=== PATIENT | female | born 1995 | race Caucasian/White ===

== ENCOUNTER → 2018-04-19 10:05 | Outpatient (CLI) | payer OTHER, SELFPAY ==
[2018-04-19 12:20] LABS: Hematocrit 42.1 % (37-47); Mean Corp Hgb Conc 33.3 g/gl (32-36); Mean Corpuscular Hgb 28.2 pg (27.0-32.0); Mean Corpuscular Volume 84.9 fL (81-99); Mean Platelet Vol. 12.3 fl (6.2-12.0); Platelet Count 304 K/mm3 (150-450); RBC Distribution Width CV 14.4 % (11.6-14.6); RBC Distribution Width SD 43.7 fl (35.1-43.9); Red Blood Count 4.96 M/mm3 (4.2-5.4); White Blood Count 10.7 K/mm3 (4.4-11.0)
[2018-04-19 12:30] LABS: Scan Indicated on CBC? Y/N NO
[2018-04-19 12:31] LABS: Erythrocyte Sedimentation Rate 30 mm/hr (0-20)
[2018-04-19 12:33] LABS: Pregnancy, Serum, hCG Quali. NEGATIVE Negative (0-9 Nonpreg)
[2018-04-19 12:44] LABS: ALB/GLOB Ratio 0.8 RATIO (0.9-2.4); AST(SGOT) 26 U/L (15-37); Alanine Aminotransfer ALT/SGPT 48 U/L (13-56); Albumin, Serum 3.5 g/dL (3.2-5.0); Alkaline Phosphatase 89 U/L (45-117); Anion Gap 11 (5-15); BUN 9 mg/dL (7-18); BUN/Creat Ratio 11.8 RATIO (10-20); Calcium,Total 9.1 mg/dL (8.5-10.1); Chloride 107 mmol/L (98-107); Creatinine, Serum 0.76 mg/dL (0.55-1.02); EST Glomerular Filtration Rate 101 mL/min (>60); Est Glom Filt Rate - Afr Amer 122 mL/min (>60); Globulin 4.2 g/dL (2.2-4.2); Glucose 94 mg/dL (74-106); Potassium 4.2 mmol/L (3.5-5.1); Protein, Total 7.7 g/dL (6.4-8.2); Sodium Level 141 mmol/L (136-145); Thyroid Stim Hormone (TSH) 3.25 uIU/mL (0.358-3.74)
[2018-04-20 12:20] LABS: Vitamin B12 340 pg/mL (211-911); Vitamin D,25 Hydroxy 14.4 ng/mL (29.95-100.01)
[2018-04-20 12:49] LABS: H. Pylori Antibody (IgG) 0.22 (0.00-0.79)
== END ==
PROVIDERS: Family Provider Pediatrics; PCP Pediatrics; Visit Provider Family Medicine
DX: K58.9 Irritable bowel syndrome, unspecified (principal); K21.9 Gastro-esophageal reflux disease without esophagitis; R53.83 Other fatigue; Z30.9 Encounter for contraceptive management, unspecified
CPT/HCPCS: 80053; 82306; 82607; 84443; 84703; 85027; 85652; 86677

== ENCOUNTER → 2018-06-02 08:41 | Outpatient (CLI) | payer OTHER, SELFPAY ==
--- NOTE | 2018-06-02 08:49 | US_ITS ---
STUDY: ABDOMINAL ULTRASOUND - RIGHT UPPER QUADRANT REASON FOR VISIT: Female, 22 years old. Acid reflux, 3 months. Diarrhea and nausea for one month. TECHNIQUE: Ultrasound evaluation of the right upper quadrant was performed with real-time and static knutson-scale imaging. TECHNICAL QUALITY: Adequate. COMPARISON: None. FINDINGS: Liver: The liver measures 18.3 cm. Mild hepatomegaly. Hepatic steatosis. The bile ducts are within normal limits. There is hepatic color flow. The direction of portal flow is hepatopetal. There is no demonstrated mass lesion. Gallbladder: Normal distended gallbladder. The gallbladder wall measures 2.9 mm. There is a negative sonographic Costa's sign. There is no pericholecystic fluid. There are no gallstones. Common Bile Duct (C.B.D.): The common bile duct measures 3.3 mm. Pancreas: Normal size of the head, body and tail of the pancreas. There is normal echogenicity of the pancreas. There is no demonstrated pancreatic mass or cyst. Right Kidney: Normal size of the right kidney. The right kidney measures 12.1 x 5.2 x 4.8 cm. Normal renal cortex. The right cortex measures 2.0 cm. There is no demonstrated renal mass or cyst. There is no right hydronephrosis. US/Abdomen Limited IMPRESSION: Normal gallbladder and biliary tree. Mild hepatomegaly with hepatic steatosis. Electronically Signed: Cayden Maloney, at 15:43 EDT Tel , Service support ,
== END ==
PROVIDERS: Family Provider Family Medicine; PCP Family Medicine; Visit Provider Family Medicine
DX: K58.9 Irritable bowel syndrome, unspecified (principal)
CPT/HCPCS: 76705

== ENCOUNTER → 2018-11-22 16:50 | Outpatient (CLI) | payer OTHER, SELFPAY ==
--- NOTE | 2018-11-22 16:53 | RAD_ITS ---
STUDY: X-RAY - LUMBAR SPINE REASON FOR EXAM: Female, 22 years old. Sciatica. TECHNIQUE: 5 view(s) of the lumbar spine were obtained including oblique views. COMPARISON: None FINDINGS: There is straightening of the normal lumbar lordosis. There is no substantial scoliosis. There is a normal alignment of the vertebrae. Normal vertebral bodies and endplates. Normal disc space heights. The soft tissue structures are unremarkable. RAD/L/S Spine Min 4 Views IMPRESSION: There is straightening of the normal lumbar lordosis. Electronically Signed: Elmer Hare MD at 14:01 EST Tel [phone], Service support ,
== END ==
PROVIDERS: Family Provider Family Medicine; PCP Family Medicine; Referring Provider Family Medicine; Visit Provider Family Medicine
DX: M54.30 Sciatica, unspecified side (principal)
CPT/HCPCS: 72110

== ENCOUNTER → 2020-02-11 | Outpatient (CLI) | payer OTHER, SELFPAY | END | disposition home or self-care (01) | LOC: LABSPEC 15:08 | PROVIDERS: PCP Family Medicine; Referring Provider Nurse Practitioner Family; Visit Provider Nurse Practitioner Family | DX: N89.8 Other specified noninflammatory disorders of vagina (principal) | CPT/HCPCS: 87070; 87205 ==

== ENCOUNTER → 2021-02-03 17:12 | Outpatient (CLI) | payer OTHER, SELFPAY ==
--- NOTE | 2021-02-03 17:18 | RAD_ITS ---
STUDY: X-RAY - RIGHT ANKLE REASON FOR EXAM: Female, 25 years old. SPRAIN OF ANKLE TECHNIQUE: 3 view(s) of the ankle. COMPARISON: None. FINDINGS: Normal visualized distal tibia and fibula. Normal medial and lateral malleoli. Normal tibiotalar articulation and ankle mortise. Normal visualized talus and calcaneus. The visualized subtalar, talonavicular, calcaneocuboid and tarsal articulations are normal. Diffuse soft tissue swelling. RAD/Ankle min 3 Views IMPRESSION: Diffuse soft tissue swelling. Electronically Signed: Elmer Hare MD at 15:46 EDT , Service support ,
== END ==
LOC: MTRAD 17:17
PROVIDERS: PCP Family Medicine; Referring Provider Family Medicine; Visit Provider Family Medicine
DX: S93.429A Sprain of deltoid ligament of unspecified ankle, initial encounter (principal)
CPT/HCPCS: 73610

== ENCOUNTER 2021-05-30 03:56 | Inpatient (IN) | payer OTHER, SELFPAY ==
[2021-05-30] VITALS (14 sets, daily range): BP systolic 139–158; BP diastolic 70–86; PULSE 79–118; RESP 16–24; TEMP 36.6–37.2; O2SAT 92–94; BMI 63.5; BMI 62.8
--- NOTE | 2021-05-30 04:03 | EKG12_ITS ---
Test Reason : SOB Blood Pressure : / mmHG Vent. Rate : 107 BPM Atrial Rate : 107 BPM P-R Int : 156 ms QRS Dur : 082 ms QT Int : 350 ms P-R-T Axes : 068 030 052 degrees QTc Int : 467 ms Sinus tachycardia Low voltage QRS Confirmed by NIC RECINOS, SONYA ([id number]), editor dictionary ORLANDO JAMES ([id number]) on 06/02/2021 9:16:54 AM Referred By: ELY Confirmed By:SONYA LUCERO MD
--- NOTE | 2021-05-30 04:07 | EDS_ITS ---
HPI History of Present Illness Chief Complaint: Shortness of Breath Narrative Narrative: Patient presents with wheezing and shortness of breath that started earlier today, she has a history of asthma but has not had asthma in quite some time, in fact since she was a child. She has no fever chills she has a somewhat productive cough. She has no lower extremity edema or calf pain. She has no DVT or PE risk factors. She has no pleuritic component. She is denying chest pain. No back pain or tearing sensation. She does have some upper airway congestion. [facility] Medical History (Updated 05/30/21 @ 05:[address] Tyrese Velazquez MD) Asthma Home Medications fluoxetine 20 mg PO BID 05/30/21 [History Last Taken Unknown] omeprazole 40 mg PO BID 05/30/21 [History Last Taken Unknown] Allergy/AdvReac Type Severity Reaction Status Date / Time No Known Allergies Allergy Verified 05/30/21 04:03 Social History Smoking Status: Current every day smoker tobacco type: cigarettes ROS ROS ED ROS Narrative Past medical history: Reviewed Medications: Reviewed Social history: Noncontributory Review of systems: All systems negative except as indicated General: No fever Eyes: No visual changes ENT: Some upper airway congestion Neck: No neck pain Cardiovascular: No chest pain Respiratory: Dyspnea as in HPI Gastrointestinal: No abdominal pain, nausea vomiting or diarrhea Genitourinary: No dysuria Musculoskeletal: Denies myalgias no difficulty with ambulation Skin: No rash Neurological: No memory loss, confusion or any focal weakness Psych: No recent behavioral changes Hematologic: No easy bleeding or easy bruising EXAM Physical Exam Narrative Exam Narrative: Physical exam General: Patient is sitting in bed, she appears relatively comfortable Head: Normocephalic, Atraumatic Eyes: Conjunctiva not pale ENT: Moist mucous membranes. Some upper airway congestion is present. Neck: Supple, Nontender, No lymphadenopathy Cardiovascular: Regular rate, Regular rhythm. No obvious murmur. Respiratory: She has bilateral end expiratory wheezing, she is slightly tachypneic but is speaking in full sentences. Abdomen: Soft, Nontender, Nondistended Back: Nontender, Normal Inspection. Negative for: CVA tenderness Extremities: Nontender, No edema, no calf pain Skin: Normal color, No rash Neurological: Alert, Normal Strength, Normal Sensation Psychological: Normal affect Const Vital Signs: 05/30/21 03:58 05/30/21 04:21 05/30/21 04:22 Temperature 98.0 F Temperature Source Oral Pulse Rate 116 H 111 H Respiratory Rate 24 H 20 H Respiratory Effort Short of Breath Respiratory Depth Normal Respiratory Pattern Tachypnea Blood Pressure 146/73 H Blood Pressure Mean 97 Pulse Ox 92 Oxygen Delivery Method Room Air Room Air Oxygen Flow Rate (L/min) 05/30/21 05:04 05/30/21 05:15 Temperature Temperature Source Pulse Rate 104 H 118 H Respiratory Rate 18 19 H Respiratory Effort Respiratory Depth Respiratory Pattern Blood Pressure Blood Pressure Mean Pulse Ox 94 Oxygen Delivery Method Venturi Mask Oxygen Flow Rate (L/min) 2 MDM MDM MDM Narrative Medical decision making narrative: Patient continues to wheeze despite steroids and nebulizers, she is improving however I try to ambulate her to the bathroom which was very close and she came back and felt much worse her oxygenation was marginal at about 90%. At this time I will admit her. She likely has an underlying pneumonia. She has no DVT or PE risk factors and she is wheezing, with a history of asthma I believe she has a reactive airway disease and I do not believe she needs a PE study at this time. Lab Data Labs: Laboratory Results - last 24 hr 05/30/21 05/30/21 04:30 04:30 WBC 15.6 H RBC 4.49 Hgb 12.4 Hct 38.1 MCV 84.9 MCH 27.6 MCHC 32.5 RDW Std Deviation 43.2 RDW Coeff of Cruz 13.9 Plt Count 343 MPV 11.2 Immature Gran % (Auto) 0.400 Neut % (Auto) 74.3 H Lymph % (Auto) 17.2 L [place] % (Auto) 5.8 Eos % (Auto) 2.0 Baso % (Auto) 0.3 Absolute Neuts (auto) 11.6 H Absolute Lymphs (auto) 2.69 Nucleated RBC % 0 Sodium 138 Potassium 3.8 Chloride 104 Carbon Dioxide 28.0 Anion Gap 6 BUN 8 Creatinine 0.83 Estim Creat Clear Calc 100.76 Est GFR (MDRD) Af Amer 107 Est GFR (MDRD) Non-Af 89 BUN/Creatinine Ratio 9.6 L Glucose 110 H Calcium 8.7 Total Bilirubin 0.40 AST 25 ALT 55 Alkaline Phosphatase 91 Total Protein 7.4 Albumin 3.3 Globulin 4.1 Albumin/Globulin Ratio 0.8 L Radiography Diagnostic Testing: X-ray interpreted by emergency doctor does not show any obvious pneumonia, although it is somewhat limited secondary to body habitus. Discharge Plan Triage Chief Complaint: Shortness of Breath ED Provider: Tyrese Velazquez Dx/Rx/DC Orders Clinical Impression: Acute respiratory distress, Wheezing Prescriptions: No Action fluoxetine 20 mg Capsule 20 mg PO BID RF: 0 omeprazole 40 mg Capsule,Delayed Release(Dr/Ec) 40 mg PO BID RF: 0 Primary Care Provider: Juan Francisco Jackson Referrals: Juan Francisco Jackson MD [Primary Care Provider] - Disposition Disposition: Acute Care Hospital [facility]
[2021-05-30] MEDS: Ipratropium/Albuterol Sulfate 3 ML AMPUL.NEB 6 ML INHALATION (04:21)
--- NOTE | 2021-05-30 04:36 | RAD_ITS ---
STUDY: X-RAY CHEST REASON FOR EXAM: Female, 25 years old. coug TECHNIQUE: Single AP portable view of the chest. COMPARISON: None. FINDINGS: The lungs are clear and expanded. There is no demonstrated pleural abnormality. Normal size heart. Normal mediastinum and karen. Normal visualized pulmonary arteries. Normal visualized aortic arch and descending thoracic aorta. Normal visualized thoracic spine. Normal visualized ribs, clavicles, and shoulders. There is no demonstrated abnormality of the visualized soft tissue structures of the upper abdomen. RAD/Chest 1 View (Portable) IMPRESSION: Normal x-ray examination of the chest. Electronically Signed: Gabrielle Frost MD at 6:18 EDT Tel , Service support ,
[2021-05-30 04:37] LABS: Absolute Lymphocyte Count 2.69 X10^3/uL (0.83-4.51); Absolute Neutrophil Count 11.6 X10^3/uL (2.0-7.7); Basophil# 0.04 X10^3/uL; Basophil% 0.3 % (0-1); Eosinophil# 0.32 X10^3/uL; Hematocrit 38.1 % (37-47); Hemoglobin 12.4 g/dL (12.0-15.0); Lymphocyte # 2.69 X10^3/ul (0.83-4.51); Lymphocyte % 17.2 % (19-41); Mean Corp Hgb Conc 32.5 g/dL (32-36); Mean Corpuscular Hgb 27.6 pg (27.0-32.0); Mean Corpuscular Volume 84.9 fL (81-99); Mean Platelet Vol. 11.2 fl (6.2-12.0); Monocyte# 0.91 X10^3/uL; Monocyte% 5.8 % (0-10); NRBC Flagged by Analyzer 0 % (0-5); Neutrophil % 74.3 % (47-70); Platelet Count 343 K/mm3 (150-450); RBC Distribution Width CV 13.9 % (11.6-14.6); RBC Distribution Width SD 43.2 fl (35.1-43.9); Red Blood Count 4.49 M/mm3 (4.2-5.4); White Blood Count 15.6 K/mm3 (4.4-11.0)
[2021-05-30 04:55] LABS: ALB/GLOB Ratio 0.8 RATIO (0.9-2.4); AST(SGOT) 25 U/L (15-37); Alanine Aminotransfer ALT/SGPT 55 U/L (13-56); Albumin, Serum 3.3 g/dL (3.2-5.0); Alkaline Phosphatase 91 U/L (45-117); Anion Gap 6 (5-15); BUN 8 mg/dL (7-18); BUN/Creat Ratio 9.6 RATIO (10-20); Calcium,Total 8.7 mg/dL (8.5-10.1); Chloride 104 mmol/L (98-107); Creatinine, Serum 0.83 mg/dL (0.55-1.02); EST Glomerular Filtration Rate 89 mL/min (>60); Est Glom Filt Rate - Afr Amer 107 mL/min (>60); Estimated Creatinine Clearance 100.76 ml/min; Globulin 4.1 g/dL (2.2-4.2); Glucose 110 mg/dL (74-106); Potassium 3.8 mmol/L (3.5-5.1); Protein, Total 7.4 g/dL (6.4-8.2); Sodium Level 138 mmol/L (136-145)
[2021-05-30] MEDS: MethylPREDNISolone 125 MG/2 ML Vial IV (05:01)
[2021-05-30] MEDS: Albuterol 2.5 MG/3 ML VIAL.NEB. 5 MG INHALATION ×2 (05:03→05:04)
[2021-05-30] MEDS: Ceftriaxone 1 GM/50 ML BAG IV (05:14)
--- NOTE | 2021-05-30 06:14 | HP.PCM.HOS_ITS ---
HPI - General General Date of Admission: 05/30/21 HPI Narrative JAIRO MANCERA, is a 25 F with a significant history of childhood asthma; obesity; GERD and anxiety disorder who presents to the emergency department with 1 day history of progressively worsening shortness of breath. Her symptoms actually started 3 days ago with sore throat. Associated with symptoms is headache; nausea; sinus congestion; chest pressure and wheezes. Her Shortness of breath is at rest and it increases markedly with exertion. Reportedly when patient walked short distance to the bathroom at the emergency department she got severely dyspneic and a oxygen saturation was 90%. [facility] Home Medications fluoxetine 20 mg PO BID 05/30/21 [History Last Taken Unknown] omeprazole 40 mg PO BID 05/30/21 [History Last Taken Unknown] Allergy/AdvReac Type Severity Reaction Status Date / Time No Known Allergies Allergy Verified 05/30/21 04:03 Family History (Updated 05/30/21 @ 06:[address] Alvin Corona MD) Other CVA (cerebral vascular accident) Diabetes Heart disease no surgical history Social History Smoking Status: Current every day smoker tobacco type: cigarettes ROS ROS Narrative 12 point review of system is negative except as stated in HPI. Vital Signs Vital Signs Vital Signs: 05/30/21 03:58 05/30/21 04:21 05/30/21 04:22 Temperature 98.0 F Temperature Source Oral Pulse Rate 116 H 111 H Respiratory Rate 24 H 20 H Respiratory Effort Short of Breath Respiratory Depth Normal Respiratory Pattern Tachypnea Blood Pressure 146/73 H Blood Pressure Mean 97 Pulse Ox 92 Oxygen Delivery Method Room Air Room Air Oxygen Flow Rate (L/min) 05/30/21 05:04 05/30/21 05:15 Temperature Temperature Source Pulse Rate 104 H 118 H Respiratory Rate 18 19 H Respiratory Effort Respiratory Depth Respiratory Pattern Blood Pressure Blood Pressure Mean Pulse Ox 94 Oxygen Delivery Method Venturi Mask Oxygen Flow Rate (L/min) 2 Weight Weight: 183.9 kg Body Mass Index (BMI) 63.5 Physical Exam Narrative Physical exam: General: Well-nourished, well-developed, no acute distress Head: Normocephalic, atraumatic, no tenderness Eyes: PERRLA, EOMI ENT, no trauma, moist mucous membranes, no rhinorrhea Neck: Nontender, full range of motion, no spinal tenderness, deformities, step- off CVS: Tachycardia; S1-S2 present Respiratory: Tachypnea. Using accessory muscles of respiration. Wheezes and rhonchi. Abdomen: Soft, nontender, nondistended, normal bowel sounds, no masses : Deferred Extremities: Nontender full range of motion, no trauma Skin: Normal color, no trauma, abrasions Neuro: Alert, oriented, cranial nerves II through XII grossly intact. Results Lab / Micro Data Result Diagrams: 05/30/21 04:30 05/30/21 04:30 Labs: Laboratory Results - last 24 hr 05/30/21 05/30/21 04:30 04:30 WBC 15.6 H RBC 4.49 Hgb 12.4 Hct 38.1 MCV 84.9 MCH 27.6 MCHC 32.5 RDW Std Deviation 43.2 RDW Coeff of Cruz 13.9 Plt Count 343 MPV 11.2 Immature Gran % (Auto) 0.400 Neut % (Auto) 74.3 H Lymph % (Auto) 17.2 L [place] % (Auto) 5.8 Eos % (Auto) 2.0 Baso % (Auto) 0.3 Absolute Neuts (auto) 11.6 H Absolute Lymphs (auto) 2.69 Nucleated RBC % 0 Sodium 138 Potassium 3.8 Chloride 104 Carbon Dioxide 28.0 Anion Gap 6 BUN 8 Creatinine 0.83 Estim Creat Clear Calc 100.76 Est GFR (MDRD) Af Amer 107 Est GFR (MDRD) Non-Af 89 BUN/Creatinine Ratio 9.6 L Glucose 110 H Calcium 8.7 Total Bilirubin 0.40 AST 25 ALT 55 Alkaline Phosphatase 91 Total Protein 7.4 Albumin 3.3 Globulin 4.1 Albumin/Globulin Ratio 0.8 L Assessment & Plan Assessment/Plan (1) Asthma exacerbation: QUALIFIERS: Asthma severity: severe Asthma persistence: unspecified Qualified Code(s): J45.901 - Unspecified asthma with (acute) exacerbation (2) Viral syndrome: (3) Obesity: QUALIFIERS: Obesity classification: adult class 3 (BMI >= 40) Serious obesity comorbidity presence: without serious comorbidity Obesity type: due to excess calories Body mass index: BMI 60.0-69.9 Qualified Code(s): E66.01 - Morbid (severe) obesity due to excess calories; Z68.44 - Body mass index [BMI] 60.0-69.9, adult PLAN: Acute the patient of asthma/viral syndrome Chest x-ray independently reviewed showed no consolidation. Review of emergency department labs showed white count of 15.6 Received Solu-Medrol 125 mg in the emergency department. Solu-Medrol 40 mg [id number] ordered. Received multiple dose of breathing treatment emergency department. DuoNeb 3 mL every 4 hours while awake ordered. Supportive treatment with intranasal Flonase; Mucinex. Will check comprehensive respiratory pathogen panel received ceftriaxone azithromycin emergency department. Will check Procalcitonin to determine further need of antibiotics. Strep pneumonia and Legionella urine antigen ordered; follow. Blood culture and lactic acid ordered in the ED; follow. Rapid Covid screen ordered emergency department; follow. Class III obesity BMI: 63.5. Complicates care. Lifestyle modification recommended. DVT prophylaxis Subcutaneous Lovenox ordered. Charges/Coding Visit Charges Inpatient E&M: 69566 Init Hosp L3
[2021-05-30 07:13] LABS: Lactic Acid 1.1 mmol/L (0.4-1.9)
[2021-05-30] MEDS: Fluticasone 0.05% 1 SPRAY NASAL.SRY 2 SPRAY NASAL (09:37)
[2021-05-30] MEDS: FLUoxetine 20 MG Capsule PO ×2 (09:37→20:05)
[2021-05-30] MEDS: Pantoprazole Sodium 40 MG Tablet PO ×2 (09:37→20:05)
[2021-05-30] MEDS: guaiFENesin 1,200 MG Tablet 1200 MG PO ×2 (09:37→20:04)
[2021-05-30] MEDS: Enoxaparin 40 MG/0.4 ML Syringe SC ×2 (09:37→20:05)
[2021-05-30] MEDS: Ipratropium/Albuterol Sulfate 3 ML AMPUL.NEB INHALATION ×4 (11:16→23:18)
[2021-05-30] MEDS: 0.9% Saline Lock 10 ML Syringe IV ×2 (14:49→20:04)
[2021-05-31] VITALS (7 sets, daily range): BP systolic 130–145; BP diastolic 59–94; PULSE 90–98; RESP 18–20; TEMP 36.1–36.6; O2SAT 87–95
[2021-05-31] MEDS: 0.9% Saline Lock 10 ML Syringe IV (05:25)
[2021-05-31 06:31] LABS: Absolute Lymphocyte Count 2.19 X10^3/uL (0.83-4.51); Absolute Neutrophil Count 19.5 X10^3/uL (2.0-7.7); Basophil# 0.04 X10^3/uL; Basophil% 0.2 % (0-1); Eosinophil# 0.01 X10^3/uL; Hematocrit 39.6 % (37-47); Hemoglobin 12.4 g/dL (12.0-15.0); Lymphocyte # 2.19 X10^3/ul (0.83-4.51); Lymphocyte % 9.4 % (19-41); Mean Corp Hgb Conc 31.3 g/dL (32-36); Mean Corpuscular Hgb 27.3 pg (27.0-32.0); Mean Corpuscular Volume 87.2 fL (81-99); Mean Platelet Vol. 11.2 fl (6.2-12.0); Monocyte# 1.36 X10^3/uL; Monocyte% 5.8 % (0-10); NRBC Flagged by Analyzer 0 % (0-5); Neutrophil # 19.47 X10^3/uL (2.7-7.7); Neutrophil % 83.5 % (47-70); Platelet Count 378 K/mm3 (150-450); RBC Distribution Width CV 14.3 % (11.6-14.6); RBC Distribution Width SD 45.5 fl (35.1-43.9); Red Blood Count 4.54 M/mm3 (4.2-5.4); White Blood Count 23.3 K/mm3 (4.4-11.0)
[2021-05-31 07:10] LABS: Anion Gap 7 (5-15); BUN 11 mg/dL (7-18); BUN/Creat Ratio 14.7 RATIO (10-20); Chloride 106 mmol/L (98-107); Creatinine, Serum 0.75 mg/dL (0.55-1.02); EST Glomerular Filtration Rate 100 mL/min (>60); Est Glom Filt Rate - Afr Amer 121 mL/min (>60); Estimated Creatinine Clearance 111.51 ml/min; Glucose 124 mg/dL (74-106); Potassium 4.2 mmol/L (3.5-5.1); Sodium Level 136 mmol/L (136-145)
[2021-05-31] MEDS: Ipratropium/Albuterol Sulfate 3 ML AMPUL.NEB INHALATION ×2 (07:21→11:02)
[2021-05-31] MEDS: Acetaminophen 325 MG Tablet 650 MG PO ×2 (07:49→13:46)
[2021-05-31] MEDS: Enoxaparin 40 MG/0.4 ML Syringe SC (07:50)
[2021-05-31] MEDS: Fluticasone 0.05% 1 SPRAY NASAL.SRY 2 SPRAY NASAL (07:50)
[2021-05-31] MEDS: FLUoxetine 20 MG Capsule PO (07:51)
[2021-05-31] MEDS: Pantoprazole Sodium 40 MG Tablet PO (07:51)
[2021-05-31] MEDS: guaiFENesin 1,200 MG Tablet 1200 MG PO (07:51)
--- NOTE | 2021-05-31 10:10 | CASEMGMT ---
RN CALISTA SERVICE RIG OPERATOR CM to room to meet with patient for initial transition planning/care coordination assessment. RN CALISTA introduced self and role at [facility]. Pt voices understanding and consents to assessment at this time. Pt resting in bed in no distress at this time. , Jamari, @ bedside. Pt is A/O at this time and answers all questions appropriately. Care providers, pharmacy, and demographics verified/updated at this time. PCP: Dr Jackson Specialists:denies Preferred Pharmacy: [facility] Insurance: [employer] [facility] Prescription Benefit: Yes Living Will/HPOA: Pt does not currently have LW/HCPOA and declines info at this time. LNOK: , Jamari Living Arrangements: Lives w/her Jamari. Independent Transportation: Pt states drives self and states no transportation concerns at this time. also drives. DME: Denies using any DME and denies needs. Pt does not have home O2. HHC/SNF: No history of either. No needs identified. Pt wishes to return home and states has no concerns with going home at time of discharge. CM to follow for home oxygen needs and any further discharge planning/needs. Pt voices no further concerns/needs at this time. Advised pt to ask for CM if any further questions/concerns/needs arise. Voices understanding. PLAN: Home. CM to follow for any Home O2 needs @ dc. Albina MERRITT RN, CM
--- NOTE | 2021-05-31 10:32 | NURSING ---
Patient's 02 on RA was 90%. While she was ambulating she was anywhere from 89%-91% on RA.
--- NOTE | 2021-05-31 11:44 | PCM.DC ---
Discharge Instructions Diet Discharge Diet: No restrictions Activity Discharge Activity: Return to Normal Activity Dressing / Incision Call your doctor if you observe: Fever of 101 or Higher, Shortness of breath, Dizziness, Swelling in the ankles, Chest pain and Increased palpitations (irregular heartbeat) Follow Up Care Test Results: Test results from this visit will be discussed in further detail at your follow-up appointment, if applicable. Discharge Plan Admission Admit Date/Time: 05/30/21 06:13 Attending Provider: Eagle Kelley Primary Care Provider: Juan Francisco Jackson Instructions Patient Instructions: Asthma Action Plan, Asthma Medicine, Asthma Discharge Orders/Prescriptions Prescriptions: New prednisone 20 mg tablet 40 mg PO DAILY Qty: 14 RF: 0 albuterol sulfate 90 mcg/actuation HFA aerosol inhaler 2 - 4 puff inhalation Q4H PRN (Reason: shortness of breath or wheezing) Qty: 8.5 RF: 0 Continued fluoxetine 20 mg Capsule 20 mg PO BID RF: 0 omeprazole 40 mg Capsule,Delayed Release(Dr/Ec) 40 mg PO BID RF: 0 Referrals / Follow Up: Juan Francisco Jackson MD [Primary Care Provider] - In 1 Week Disposition Disposition (needs filled in before D/C Order can be placed): Home, Self Care
--- NOTE | 2021-05-31 13:13 | NURSING ---
Patient was placed on continuous pulse ox. She dropped breifly to 88% on RA but was mostly in the range of 90-93% on RA. Dr. Kelley made aware. Patient states she is ok with DC without 02. States she feels better than when she came in.
--- NOTE | 2021-05-31 13:40 | DS.PCM_ITS ---
Providers Date of Admission: 05/30/21 Primary Care Physician: Dr. Juan Francisco Jackson MD Reason For Visit: SOB EXACERBATION Diagnosis Discharge Diagnosis (1) Asthma exacerbation: Status: Acute Code(s): J45.901 - Unspecified asthma with (acute) exacerbation Qualifiers: Asthma severity: severe Asthma persistence: unspecified Qualified Code(s): J45.901 - Unspecified asthma with (acute) exacerbation (2) Viral syndrome: Status: Acute Code(s): B34.9 - Viral infection, unspecified (3) Obesity: Status: Acute Code(s): E66.9 - Obesity, unspecified Qualifiers: Obesity type: due to excess calories Obesity classification: adult class 3 (BMI >= 40) Serious obesity comorbidity presence: without serious comorbidity Body mass index: BMI 60.0-69.9 Qualified Code(s): E66.01 - Morbid (severe) obesity due to excess calories; Z68.44 - Body mass index [BMI] 60.0- 69.9, adult Medications at Discharge Home Medications fluoxetine 20 mg PO BID 05/30/21 omeprazole 40 mg PO BID 05/30/21 albuterol sulfate 2 - 4 puff INHALATION Q4H PRN #8.5 g 05/31/21 prednisone 40 mg PO DAILY #14 tab 05/31/21 Hospital Course Operations None Procedures None Summary of Care Provided Minutes Spent on Discharge: 35 Hospital Course: Per HPI: JAIRO MANCERA, is a 25 F with a significant history of childhood asthma; obesity; GERD and anxiety disorder who presents to the emergency department with 1 day history of progressively worsening shortness of breath. Her symptoms actually started 3 days ago with sore throat. Associated with symptoms is headache; nausea; sinus congestion; chest pressure and wheezes. Her Shortness of breath is at rest and it increases markedly with exertion. Reportedly when patient walked short distance to the bathroom at the emergency department she got severely dyspneic and a oxygen saturation was 90%. Hospital Course: 1. Acute hypoxic respiratory insufficiency secondary to Rhinovirus with asthma [id number] female who did have a history of childhood asthma but who no longer has any issues with asthma, but she does smoke presented with respiratory distress and shortness of breath. She did test positive for rhinovirus and was placed on oxygen and started on breathing treatments as well as steroids. She is feeling much better today and on ambulation and on room air she was teetering around 90% and she was given the option of staying 1 more day to see if her oxygen increased or going home, she elected to go home. I did discuss with her the risks and benefits of discharge and she expressed understanding of those risks. She will be discharged with albuterol inhaler as well as steroids for a week.I explained to her that she is to follow-up with her PCP in 3 to 5days for further monitoring. She was counseled on tobacco cessation. Physical Exam Const alert, oriented x3 and no apparent distress General Appearance: cooperative HEENT normocephalic and moist oral mucous membranes Eyes PERRL, EOMs intact bilaterally and conjunctivae normal Neck supple and no JVD Resp normal respiratory effort, no retractions and no use of accessory muscles Auscultation: wheezes expiratory wheezes and throughout; Negative for crackles, rales or rhonchi Cardio regular rate, regular rhythm, S1 normal heart sound, S2 normal heart sound and no murmurs GI soft to palpation, non-tender and non-distended; Negative for hepatosplenomegaly Extremity no clubbing, cyanosis or edema Skin no rashes or lesions noted Neuro no focal motor deficits and no sensory deficits noted Psych affect normal Appearance: appropriate Weight / BMI Weight Weight: 401 lb 3.861 oz Body Mass Index (BMI) 62.8 ABG / Lab / Microbiology Data Result Diagrams: 05/31/21 06:08 05/31/21 06:08 Laboratory: Laboratory Results - last 24 hr 05/31/21 06:08: WBC 23.3 H, RBC 4.54, Hgb 12.4, Hct 39.6, MCV 87.2, MCH 27.3, MCHC 31.3 L, RDW Std Deviation 45.5 H, RDW Coeff of Cruz 14.3, Plt Count 378, MPV 11.2, Immature Gran % (Auto) 1.100 H, Neut % (Auto) 83.5 H, Lymph % (Auto) 9.4 L, [place] % (Auto) 5.8, Eos % (Auto) 0.0, Baso % (Auto) 0.2, Absolute Neuts (auto) 19.5 H, Absolute Lymphs (auto) 2.19, Nucleated RBC % 0 05/31/21 06:08: Sodium 136, Potassium 4.2, Chloride 106, Carbon Dioxide 23.0, Anion Gap 7, BUN 11, Creatinine 0.75, Estim Creat Clear Calc 111.51, Est GFR (MDRD) Af Amer 121, Est GFR (MDRD) Non-Af 100, BUN/Creatinine Ratio 14.7, Glucose 124 H, Calcium 9.0 Microbiology: Microbiology 05/30/21 11:12 Mucosa - Nasopharyngeal Respiratory Panel (PCR) - Final Rhinovirus 05/30/21 12:27 Urine, Clean Catch Legionella Antigen - Final 05/30/21 12:27 Urine, Clean Catch Streptococcus pneumoniae Antigen (M - Final 05/30/21 06:28 Mucosa - Nose SARS-CoV-2 Antigen (Rapid) - Final D/C Instructions Discharge Diet: No restrictions Call your doctor if you observe: Fever of 101 or Higher, Shortness of breath, Dizziness, Swelling in the ankles, Chest pain and Increased palpitations (irregular heartbeat) Meaningful Use Info Meaningful Use Diagnoses (Choose all that apply): None applicable Discharge Plan Admission Admit Date/Time: 05/30/21 06:13 Attending Provider: Eagle Kelley Primary Care Provider: Juan Francisco Jackson Instructions Patient Instructions: Asthma Action Plan, Asthma Medicine, Asthma Discharge Orders/Prescriptions Prescriptions: New prednisone 20 mg tablet 40 mg PO DAILY Qty: 14 RF: 0 albuterol sulfate 90 mcg/actuation HFA aerosol inhaler 2 - 4 puff inhalation Q4H PRN (Reason: shortness of breath or wheezing) Qty: 8.5 RF: 0 Continued fluoxetine 20 mg Capsule 20 mg PO BID RF: 0 omeprazole 40 mg Capsule,Delayed Release(Dr/Ec) 40 mg PO BID RF: 0 Referrals / Follow Up: Juan Francisco Jackson MD [Primary Care Provider] - In 1 Week Disposition Disposition (needs filled in before D/C Order can be placed): Home, Self Care Charges/Coding Visit Charges Inpatient E&M: 39107 Disch Hosp
== END 2021-05-31 13:58 | disposition home or self-care (01) | DRG 202 ==
LOC: ED 05:44 → MS3 06:26
PROVIDERS: Admitting Provider Hospitalist; Emergency Provider Emergency Medicine; PCP Family Medicine; Visit Provider Family Medicine
DX: J45.901 Unspecified asthma with (acute) exacerbation (principal); Z68.44 Body mass index [BMI] 60.0-69.9, adult; B34.8 Other viral infections of unspecified site; R09.02 Hypoxemia; E66.01 Morbid (severe) obesity due to excess calories; K21.9 Gastro-esophageal reflux disease without esophagitis; F41.9 Anxiety disorder, unspecified; F17.210 Nicotine dependence, cigarettes, uncomplicated
CPT/HCPCS: 71045; 80048; 80053; 83605; 84145; 85025; 87040; 87426; 87449; 87633; 93005; 94640; 99284; 99406; J7050; A4216

== ENCOUNTER → 2022-04-06 | Outpatient (CLI) | payer OTHER, SELFPAY ==
--- NOTE | 2022-04-06 14:13 | PFT ---
INTRODUCTION: The patient is a 26-year-old female that presents for pulmonary function studies secondary to a diagnosis of dyspnea. Respiratory therapy reported good patient effort. Bronchodilators were used during testing. INTERPRETATION: Forced expiration spirometry demonstrates the presence of a fully reversible mild large airways obstructive ventilatory defect. There was a significant response to aerosolized bronchodilators. Spirograms are of good quality and plateau normally. Body plethysmography was performed and revealed an elevated TLC and RV, indicative of underlying hyperinflation and air trapping. Diffusing capacity by single breath CO is reduced at 63% of predicted. IMPRESSION: Fully reversible mild large airways obstructive ventilatory defect with associated hyperinflation, air trapping and symmetric reduction in diffusing capacity.
== END | disposition home or self-care (01) ==
LOC: PSN 10:41
PROVIDERS: PCP Family Medicine; Referring Provider Internal Medicine Critical Care Medicine; Visit Provider Internal Medicine Critical Care Medicine
DX: R06.00 Dyspnea, unspecified (principal)
CPT/HCPCS: 94060; 94726; 94729

== ENCOUNTER → 2022-08-01 | Outpatient (CLI) | payer OTHER, SELFPAY ==
[2022-08-01 17:49] LABS: Hematocrit 41.8 % (37-47); Hemoglobin 13.8 g/dL (12.0-15.0); Mean Corpuscular Hgb 28.7 pg (27.0-32.0); Mean Corpuscular Volume 86.9 fL (81-99); Mean Platelet Vol. 12.1 fl (6.2-12.0); Platelet Count 338 K/mm3 (150-450); RBC Distribution Width CV 13.8 % (11.6-14.6); Red Blood Count 4.81 M/mm3 (4.2-5.4); White Blood Count 12.4 K/mm3 (4.4-11.0)
[2022-08-01 18:30] LABS: ALB/GLOB Ratio 0.9 RATIO (0.9-2.4); AST(SGOT) 17 U/L (15-37); Alanine Aminotransfer ALT/SGPT 38 U/L (13-56); Albumin, Serum 3.6 g/dL (3.2-5.0); Alkaline Phosphatase 76 U/L (45-117); Anion Gap 9 (5-15); BUN 9 mg/dL (7-18); BUN/Creat Ratio 12.8 RATIO (10-20); CRP 8.91 mg/L (0.0-3.0); Calcium,Total 8.8 mg/dL (8.5-10.1); Chloride 105 mmol/L (98-107); EST Glomerular Filtration Rate 107 mL/min (>60); Est Glom Filt Rate - Afr Amer 129 mL/min (>60); Glucose 85 mg/dL (74-106); Potassium 3.8 mmol/L (3.5-5.1); Protein, Total 7.6 g/dL (6.4-8.2); Sodium Level 138 mmol/L (136-145)
[2022-08-03 15:08] LABS: Endomysial Antibody IgA Negative (Negative)
[2022-08-04 10:37] LABS: Immunoglobulin A 178 mg/dL (87-352); t-Transglutaminase IgA <2 U/mL (0-3)
== END | disposition home or self-care (01) ==
LOC: MTLAB 15:52
PROVIDERS: PCP Family Medicine; Referring Provider Internal Medicine Gastroenterology; Visit Provider Internal Medicine Gastroenterology
DX: R19.7 Diarrhea, unspecified (principal); K62.5 Hemorrhage of anus and rectum
CPT/HCPCS: 36415; 80053; 82784; 83516; 84436; 84443; 85027; 86140; 86255

== ENCOUNTER → 2023-07-26 | Outpatient (CLI) | payer OTHER, SELFPAY ==
[2023-07-26 17:48] LABS: hCG Titer Quant., Serum 1371 mIU/mL (1-3)
== END | disposition home or self-care (01) ==
LOC: LAB 16:17
PROVIDERS: PCP Family Medicine; Referring Provider Nurse Practitioner Women's Health; Visit Provider Nurse Practitioner Women's Health
DX: N91.2 Amenorrhea, unspecified (principal)
CPT/HCPCS: 36415; 84702

== ENCOUNTER → 2023-07-31 | Outpatient (CLI) | payer OTHER, SELFPAY ==
[2023-07-31 17:31] LABS: hCG Titer Quant., Serum 2178 mIU/mL (1-3)
== END | disposition home or self-care (01) ==
LOC: LAB 15:51
PROVIDERS: PCP Family Medicine; Referring Provider Nurse Practitioner Women's Health; Visit Provider Nurse Practitioner Women's Health
DX: N91.2 Amenorrhea, unspecified (principal)
CPT/HCPCS: 36415; 84702

== ENCOUNTER → 2023-08-02 | Outpatient (CLI) | payer OTHER, SELFPAY ==
[2023-08-02 17:44] LABS: hCG Titer Quant., Serum 2625 mIU/mL (1-3)
== END | disposition home or self-care (01) ==
LOC: LAB 16:17
PROVIDERS: PCP Family Medicine; Referring Provider Nurse Practitioner Women's Health; Visit Provider Nurse Practitioner Women's Health
DX: O36.80X0 Pregnancy with inconclusive fetal viability, not applicable or unspecified (principal); Z3A.00 Weeks of gestation of pregnancy not specified
CPT/HCPCS: 36415; 84702

== ENCOUNTER → 2023-08-03 | Outpatient (CLI) | payer OTHER, SELFPAY ==
--- NOTE | 2023-08-03 17:00 | US_ITS ---
STUDY: FIRST TRIMESTER OBSTETRICAL ULTRASOUND REASON FOR EXAM: Female, 27 years old viability LMP: TECHNIQUE: Transvaginal TECHNICAL QUALITY: Adequate. PRIOR ULTRASOUND: None. FINDINGS: There is visualization of a single gestational sac in a normal intrauterine position. The mean sac diameter (MSD) measures 7 mm, indicating an estimated gestational age (EGA) of 5 weeks, 3 days. The gestational sac shape is within normal limits. Yolk sac is not visualized The placenta is non-visualized. pole not visualized The estimated gestation age (EGA) by LMP is 7 weeks, 3 days. The estimated date of delivery (DIANA) by LMP is March 18, 2024. The estimated gestation age (EGA) by US is 5 weeks, 3 days. The estimated date of delivery (DIANA) by US is Apr 01 2024. The uterus measures 8.8 x 6.6 x 5.1 cm. There is no demonstrated uterine fibroid. The cervix is closed. Normal right ovary is not visualized. There is no right ovarian cyst. There is no visualized right adnexal mass or complex lesion. The left ovary measures 2.5 1.7 x 1.6 cm. There is no left ovarian cyst. There is no visualized left adnexal mass or complex lesion. There is no fluid in the cul de sac. US/Transvaginal w/Preg US IMPRESSION: Findings which may be consistent with very early intrauterine gestation however cannot definitively exclude blighted ovum. No evidence to suggest ectopic . Recommend clinical correlation and follow-up studies. Electronically Signed: Phil Mae MD at 17:55 EDT ,
== END | disposition home or self-care (01) ==
LOC: US 16:58
PROVIDERS: PCP Family Medicine; Referring Provider Nurse Practitioner Women's Health; Visit Provider Nurse Practitioner Women's Health
DX: O36.80X0 Pregnancy with inconclusive fetal viability, not applicable or unspecified (principal); Z3A.00 Weeks of gestation of pregnancy not specified
CPT/HCPCS: 76817

== ENCOUNTER → 2023-08-07 | Outpatient (CLI) | payer OTHER, SELFPAY ==
[2023-08-07 09:28] LABS: hCG Titer Quant., Serum 3023 mIU/mL (1-3)
== END | disposition home or self-care (01) ==
LOC: PAVLAB 08:36
PROVIDERS: PCP Family Medicine; Referring Provider Nurse Practitioner Women's Health; Visit Provider Nurse Practitioner Women's Health
DX: O20.0 Threatened abortion (principal); Z3A.00 Weeks of gestation of pregnancy not specified
CPT/HCPCS: 36415; 84702

== ENCOUNTER → 2023-11-06 | Outpatient (CLI) | payer OTHER, SELFPAY ==
[2023-11-06 10:18] LABS: hCG Titer Quant., Serum 2159 mIU/mL (1-3)
[2023-11-08 21:07] LABS: Chlamydia By Nucleic Acid AMP Negative (Negative); Gonococcus By Nucleic Acid AMP Negative (Negative)
[2023-11-10 18:28] LABS: HPV Reflexed? NOT INDICATED
== END | disposition home or self-care (01) ==
PROVIDERS: Obstetrics & Gynecology; PCP Family Medicine; Referring Provider Obstetrics & Gynecology; Visit Provider Obstetrics & Gynecology
DX: Z34.90 Encounter for supervision of normal pregnancy, unspecified, unspecified trimester (principal); Z36.87 Encounter for antenatal screening for uncertain dates
CPT/HCPCS: 36415; 84702; 87086; 87088; 87491; 87591; 88175; G0145

== ENCOUNTER → 2023-11-07 | Outpatient (CLI) | payer OTHER, SELFPAY ==
--- NOTE | 2023-11-07 18:46 | US_ITS ---
STUDY: FIRST TRIMESTER OBSTETRICAL ULTRASOUND REASON FOR EXAM: Female, 27 years old VIABILITY/ dates LMP: 09/15/2023. TECHNIQUE: Transvaginal TECHNICAL QUALITY: Adequate. PRIOR ULTRASOUND: 08/03/2023. FINDINGS: There is visualization of a single gestational sac in the side of the endometrium. The right endometrium measures 12 mm. The mean sac diameter (MSD) measures 0.72 cm, indicating an estimated gestational age (EGA) of 5 weeks, 3 days. The gestational sac shape is within normal limits. There is no demonstrated yolk sac. There is no demonstrated embryo ( pole). The estimated gestation age (EGA) by LMP is 7 weeks, 4 days. The estimated date of delivery (DIANA) by LMP is 06/21/2024. The estimated gestation age (EGA) by US is 5 weeks, 3 days. The estimated date of delivery (DIANA) by US is 07/06/2024. The uterus measures 8.0 x 6.5 x 5.4 cm. There is no demonstrated uterine fibroid. The cervix is closed. The right ovary is not visualized. The left ovary measures 1.9 x 1.9 x 1.3 cm. Within the left ovary there is a round anechoic structure measuring 1.2 x 1.3 x 1.3 cm consistent with a simple cyst. There is no visualized left adnexal mass or complex lesion. There is no fluid in the cul de sac. US/Init OB < 14Wks US IMPRESSION: Gestational sac like structure corresponding to 5 weeks and 3 days. No pole or yolk sac visualized, findings most commonly seen with early gestation. Other etiologies side chest and blighted ovum/known embryonic , in progress or ectopic not entirely excluded in the appropriate clinical context. Correlation with serial hCG measurements and short interval ultrasound recommended to document cardiac activity and ensure normal . Electronically Signed: Kelsy Carter MD at 19:54 EST ,
== END | disposition home or self-care (01) ==
LOC: US 18:42
PROVIDERS: PCP Family Medicine; Visit Provider Obstetrics & Gynecology
DX: Z34.90 Encounter for supervision of normal pregnancy, unspecified, unspecified trimester (principal)
CPT/HCPCS: 76801

== ENCOUNTER → 2023-11-08 | Outpatient (CLI) | payer OTHER, SELFPAY ==
[2023-11-08 17:06] LABS: hCG Titer Quant., Serum 2674 mIU/mL (1-3)
== END | disposition home or self-care (01) ==
LOC: LAB 15:59
PROVIDERS: PCP Family Medicine; Referring Provider Obstetrics & Gynecology; Visit Provider Obstetrics & Gynecology
DX: Z36.87 Encounter for antenatal screening for uncertain dates (principal)
CPT/HCPCS: 36415; 84702

== ENCOUNTER 2023-11-16 09:55 | Emergency (ER) | payer OTHER, SELFPAY ==
[2023-11-16 09:57] VITALS: BP 160/83; PULSE 70; RESP 14; TEMP 36.3; O2SAT 98; BMI 53.0
--- NOTE | 2023-11-16 10:24 | EDS_ITS ---
HPI HPI - Female History of Present Illness Chief Complaint: Vag Bleeding Informant: patient Narrative Narrative: 27-year-old female states that she is about 8 weeks . She states that 2 months ago she had a miscarriage. She states that she had to have a D&C. She states that she found out earlier this month that she was and had been doing well until this morning when she began to have bleeding and some pelvic and hip cramping. She states that after she found out she was this time she had several blood test that showed a rising hCG level. She states that she called her ASSISTANT [employer]'s office and was sent to the emergency department. She states that she is a be positive. It appears that the patient's last miscarriage was in July. G2, P0 Ab1 PFSH PFSH Medical History Alcohol abuse Anxiety Asthma Depression GERD (gastroesophageal reflux disease) Irregular heart beat Migraines Smoker Home Medications fluoxetine 20 mg capsule 20 mg PO BID Check with primary doctor 05/30/21 [History Last Taken 05/28/21] omeprazole 40 mg capsule,delayed release 40 mg PO BID Check with primary doctor 05/30/21 [History Last Taken 05/29/21] albuterol sulfate 90 mcg/actuation aerosol inhaler 2 - 4 puff inhalation Q4H PRN shortness of breath or wheezing #8.5 grams 05/31/21 [Rx Last Taken Unknown] misoprostol 200 mcg tablet (Cytotec) 1,000 mcg (5 x 200 mcg) PO BID #5 tabs 11/16/23 [Rx Last Taken Unknown] oxycodone-acetaminophen 5 mg-325 mg tablet 1 tab PO Q4H PRN PRN Pain 3 days #10 TABLETS 11/16/23 [Rx Last Taken Unknown] Allergy/AdvReac Type Severity Reaction Status Date / Time escitalopram [From Lexapro] AdvReac unknown Verified 11/16/23 09:56 Family History Mother CVA (cerebral vascular accident) Liver disease Myocardial infarction x5 Diabetes Retinal detachment Hypertrophic cardiomyopathy Grandmother Breast cancer and great-grandmother Father Liver disease Diabetes Other Heart disease Surgical History S/P D&C (status post dilation and curettage) Social History adopted: No household members: spouse housing: apartment current occupational status: employed current occupation: [employer] current occupational exposures/hazards: No pets and animals: No history of recent travel: No sexually active: Yes Smoking Status: Current every day smoker tobacco type: cigarettes Tobacco: How many years used: 8 counseling given: counseling >3 minutes alcohol intake: never substance use type: former substance user and marijuana well-balanced diet: about half the time caffeine: Yes Type: carbonated beverages and coffee eating out: 1-3 times/week during the past year weight has: remained stable what type of physical activity do you participate in: walking and bicycling frequency: 1-2 times per week duration: 30-45 minutes/day mireya/restorationist: Faith seatbelt use: sometimes do you feel safe at home: Yes 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 ROS ED Constitutional Constitutional ED: Denies chills or weight loss Eyes Eyes: Denies change in vision or diplopia ENT ENT ED: Denies ear pain, rhinorrhea or sore throat Cardiovascular Cardiovascular: Denies chest pain, orthopnea, palpitations or racing heartbeat Respiratory/Chest Respiratory/Chest: Denies cough, dyspnea or orthopnea Gastrointestinal Gastrointestinal: Denies abdominal pain, diarrhea, nausea or vomiting Genitourinary Genitourinary ED: Reports other Details: Vaginal bleeding pelvic cramping ; Denies dysuria, hematuria or urinary frequency Musculoskeletal Musculoskeletal: Denies arthralgias or myalgias Integumentary Denies abscess or rash Neurologic Neurologic: Denies headache(s) or weakness Psychiatric Psychiatric: Denies anxiety, depression, suicidal ideation or suicidal thoughts Endocrine Endocrinology: Denies polydipsia, polyphagia or polyuria Allergic/Immunologic Allergic/Immunologic ED: Denies mouth swelling, tongue swelling or urticaria EXAM Physical Exam Const Vital Signs: 11/16/23 09:57 11/16/23 12:50 Temperature 97.3 F L Temperature Source Temporal Pulse Rate 70 72 Respiratory Rate 14 15 Blood Pressure 160/83 H 126/71 H Blood Pressure Mean 108 89 Pulse Ox 98 98 Oxygen Delivery Method Room Air Room Air Positive well nourished, well developed and obese General Appearance ED: well developed Nutritional Appearance: obese HEENT Reports normocephalic, head/scalp atraumatic and moist mucous membranes Eyes PERRL and EOMs intact bilaterally Neck no lymphadenopathy, supple and no JVD Resp normal respiratory effort and clear to auscultation bilaterally Cardio regular rate, regular rhythm and no murmurs GI normal to inspection, nondistended, normoactive bowel sounds and non-tender Palpation: soft Back/Spine no CVA tenderness and normal ROM Extremity normal to inspection General Extremety ED: Negative for edema General Extremity: Negative for edema Neuro oriented x3 and CN's II-XII intact bilaterally Sensorium / Orientation: alert Motor Exam: strength 5/5 throughout Psych mental status grossly normal Mood & Affect: Negative for depressed or tearful Skin no rashes or lesions noted and no wounds MDM MDM MDM Narrative Medical decision making narrative: Hemoglobin 13.2. Quantitative hCG 2867. Prior values were reviewed. Ultrasound demonstrates a questionable early intrauterine gestation with a possible 8 mm gestational sac. 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 Gutierrez who came to the emergency room to evaluate the patient. Recommendation is to provide Cytotec and as needed Percocet for incomplete miscarriage. Please see Dr. Gutierrez's evaluation and documentation. She will follow-up in the office. Lab Data Attestation: I reviewed the patient's lab results. Labs: Laboratory Results - last 24 hr 11/16/23 10:35 Hgb 13.2 Hct 40.8 HCG, Quant 2867 H Radiography Diagnostic Testing: Clinical Impression(s) from Imaging Studies Obstetrics Ultrasound 11/16/23 10:24 IMPRESSION: Question of an early intrauterine gestation. Recommend follow-up ultrasound of the pelvis in 7-10 days if HCG titers are positive in order to further evaluate for viable intrauterine gestation, ectopic or miscarriage. Electronically Signed: Braulio Wan MD at 11:54 EST , Discharge Plan Triage Chief Complaint: Vag Bleeding ED Provider: Grao Zuniga Dx/Rx/DC Orders Clinical Impression: Pelvic cramping, Incomplete miscarriage Instructions: ED MISCARRIAGE Incomplete Prescriptions: New misoprostol [Cytotec] 200 mcg tablet 1,000 mcg PO BID Qty: 5 0RF Rx Instructions: Take 48 hours after dose given in the Emergency Department (1400 hours on 18 Nov 2023) oxycodone-acetaminophen [oxycodone-acetaminophen] 5-325 mg tablet 1 tab PO Q4H PRN PRN (Reason: Pain) 3 Days Qty: 10 0RF No Action fluoxetine 20 mg Capsule 20 mg PO BID omeprazole 40 mg Capsule,Delayed Release(Dr/Ec) 40 mg PO BID albuterol sulfate 90 mcg/actuation HFA aerosol inhaler 2 - 4 puff inhalation Q4H PRN (Reason: shortness of breath or wheezing) Qty: 8.5 0RF Primary Care Provider: Juan Francisco Jackson Referrals: Juan Francisco Jackson MD [Primary Care Provider] - Alicia Gutierrez MD [Med Staff - Active Staff] - [facility] appointment Disposition Disposition: Home, Self Care
--- NOTE | 2023-11-16 10:24 | US_ITS ---
EXAM: US , TRANSVAGINAL CLINICAL INDICATION: vaginal bleeding TECHNIQUE: Real-time endovaginal obstetrical ultrasound of the maternal pelvis and a first trimester with image documentation. Transvaginal imaging was used for better evaluation of the fetus and adnexa. COMPARISON: No relevant prior studies available. FINDINGS: Uterus measures 8.8 x 6.6 x 4.8 cm with endometrial thickness of 13 mm. Questionable 8 mm intrauterine gestational sac. No identifiable embryo or yolk sac. Neither ovary clearly identified due to overlying bowel gas. No adnexal mass. No free fluid. US/Transvaginal w/Preg US IMPRESSION: Question of an early intrauterine gestation. Recommend follow-up ultrasound of the pelvis in 7-10 days if HCG titers are positive in order to further evaluate for viable intrauterine gestation, ectopic or miscarriage. Electronically Signed: Braulio Wan MD at 11:54 EST ,
[2023-11-16 10:38] LABS: Hematocrit 40.8 % (37-47); Hemoglobin 13.2 g/dL (12.0-15.0)
--- OUTSIDE RECORDS SUMMARY | 2023-11-16 11:08 | XMS RPT_ITS | CCD ---
Author Name Unknown Address [address] [place] [address] Organization [facility] Care Team Providers Care Torch Heater Name Role Phone RYAN RECINOS, DR AGUILAR Primary Care Physician LACEY BAIRES, DR. CALLE [facility] RYAN BAIRES, DR. AGUILAR Primary Care Unav ailable Allergies Allergy Classification Reported Allergen(s) Allergy Type Date of Onset Reaction(s) Facility (2 sources) Escitalopram; Translations: [escitalopram] Drug Allergy [facility] Medications Current Medications Medication Drug Class(es) Dates Sig (Normalized) Sig (Original) albuterol MDI (90 mcg/inh) CFC free inhalation aerosol (1 source) Start: 07-26-2023 take 2 puff(s) by inhalation every four hours as needed for wheezing albuterol MDI (90 mcg/inh) CFC free inhalation aerosol 2 puff(s), Inhalation, q4h, PRN as needed for wheezing, # 18 gram(s), 0 Refill(s), Pharmacy: [facility]/pharmacy #[id number], 170.1, cm, 07/26/23 13:49:00 EDT, Height, kg, 08/08/22 10:18:00 EDT, Dosing Weight Start Date: 07/26/23 Status: Ordered FLUoxetine 20 mg oral capsule (2 sources) Serotonin Reuptake Inhibitor Start: 08-02-2022 FLUoxetine 20 mg oral capsule Dose : 20 mg = 1 cap(s), Oral, qDay, # 90 cap(s), 0 Refill(s) Start Date: 08/02/22 Status: Ordered omeprazole 40 mg delayed release oral capsule (2 sources) Proton Pump Inhibitor Start: 08-02-2022 omeprazole 40 mg oral delayed release capsule Dose : 80 mg = 2 cap(s), Oral, qDay, # 60 cap(s), 0 Refill(s) Start Date: 08/02/22 Status: Ordered Multivitamins (1 source) Start: 07-26-2023 take 1 tablet by mouth once daily Multivitamins Dose = 1 tab(s), Oral, qDay, 0 Refill(s) Start Date: 07/26/23 Status: Ordered Problems Problem Classification Problem Date Documented Da te Episodic/Chronic Other and delivery including normal (1 source) Onset: 06-12-2023 07-26-2023 Episodic Substance-related disorders (1 source) Cannabis dependence; Translations: [Cannabis dependence, uncomplicated] Onset: 07-27-2023 Chronic Results Test Name Value Interpretation Reference Range Facil ity Vital Signs Date Time Vital Sign Value Performing Clinician Faci lity 08-08-2022 11:30-0400 Diastolic Blood Pressure NBP [address] LUC RAHMAN MD [facility] 08-08-2022 11:30-0400 Heart rate 66 /min DR LUC RAHMAN MD [facility] 08-08-2022 11:30-0400 Respiratory rate 16 /min DR LUC RAHMAN MD [facility] 08-08-2022 11:30-0400 Systolic Blood Pressure NBP [address] LUC RAHMAN MD [facility] 08-08-2022 11:15-0400 Diastolic Blood Pressure NBP [address] LUC RAHMAN MD [facility] 08-08-2022 11:15-0400 Heart rate 73 /min DR LUC RAHMAN MD [facility] 08-08-2022 11:15-0400 Respiratory rate 20 /min DR LUC RAHMAN MD [facility] 08-08-2022 11:15-0400 Systolic Blood Pressure NBP [address] LUC RAHMAN MD [facility] 08-08-2022 11:03-0400 Diastolic Blood Pressure NBP [address] LUC RAHMAN MD [facility] 08-08-2022 11:03-0400 Heart rate 75 /min DR LUC RAHMAN MD [facility] 08-08-2022 11:03-0400 Respiratory rate 20 /min DR LUC RAHMAN MD [facility] 08-08-2022 11:03-0400 Systolic Blood Pressure NBP [address] LUC RAHMAN MD [facility] 08-08-2022 10:30-0400 Body height 170.[address] LUC RAHMAN MD [facility] 08-08-2022 09:57-0400 Body height 170.[address] LUC RAHMAN MD [facility] 08-08-2022 09:57-0400 Body temperature 97.34 [degF] DR LUC RAHMAN MD [facility] 08-08-2022 09:57-0400 Body weight [address] LUC RAHMAN MD [facility] 08-08-2022 09:57-0400 Diastolic blood pressure 78 mm[Hg] DR LUC RAHMAN MD [facility] 08-08-2022 09:57-0400 Heart rate 72 /min DR LUC RAHMAN MD [facility] 08-08-2022 09:57-0400 Systolic blood pressure 113 mm[Hg] DR LUC RAHMAN MD [facility] Encounters Encounter Date Encounter Type Care Provider Facility Start: 07-26-2023 End: 07-30-2023 Outreach Lab MAX POP MD [facility] Start: 08-08-2022 End: 08-09-[address] LUC RAHMAN MD. Facility:[facility] Start: 08-08-2022 End: 08-08-[address] LUC RAHMAN MD [facility] Procedures Date Procedure Procedure Detail Performing Clinician Start: 08-08-[address] LUC RAHMAN MD Payers Date Payer Category Payer Unknown [id number] 1995 Unknown [id number] Social History Date Type Detail Facility Start: 08-08-2022 Tobacco smoking status Heavy t obacco smoker (finding) [facility] Sex Assigned At Female [facility] Start: 07-26-2023 Tobacco smoking status Light t obacco smoker (finding) [facility] Functional Status Date Assessment Result Facility 08-08-2022 Functional Status Awake [facility] 08-08-2022 Functional Status [facility] Mental Status Date Assessment Result Facility 08-08-2022 Mental Status Orientation Oriented x 4 [facility] Evaluation + Plan note 08-08-2022 Note Date & Type Note Facility [facility] ADMISSION HISTORY AN D PHYSICIAL CHIEF COMPLAINT: HISTORY OF PRESENT ILLNESS: REVIEW OF SYSTEMS: ACTIVE PROBLEMS: (9) Abdominal pain (74757743) Bloody stool (7713042690) Chest pain (93701666) Diarrhea (666872250) Difficulty breathing (475330331) GERD (gastroesophageal reflux disease) (215586057) Morbid obesity with BMI of 50.0-59.9, adult (8000070397) Nausea (3994174579) Tobacco use ([id number]) MEDICATIONS: Active Inpt Meds: None Active PRN Meds: None One Time Meds: None Active IV Meds: Lactated Ringers Infusion 1,000 mL (LR 1,000 mL) Start: 08/08/22 9:49:00 EDT, Rate: 50 mL/hr, 08/08/22 9:49:00 EDT ALLERGIES: (1) Lexapro FAMILY HISTORY: SOCIAL HISTORY: PHYSICAL EXAM: VITALS: [id number](kg) 08/08 09:5736.3113/[id number]/81385.0 24 Hr Tmax: 36.3 at 08/08 09:57 36 Hr Tmax: 36.3 at 08/08 09:57 Vital Signs are the last 5 in the past 48 hours. Weights display the last 5 within 7 days. Initial Wt: 08/08 167.0 kg 367 lb Current Wt: 08/08 167.0 kg 367 lb GENERAL: HEENT: CARDIOVASCULAR: RESPIRATORY: ABDOMEN: EXREMETIES: NEUROLOGICAL: PSYCHIATRIC: LABS: No 36hr Lab Data DIAGNOSTICS: IMPRESSION: PLAN: History and Physical Update I have examined the patient; reviewed the H&P and there are no changes to the H&P unless noted below. Future Scheduled Tests Laboratory* Urine test (LAB) 08/08/22 [facility] Hospital Discharge instructions 08-08-2022 Note Date & Type Note Facility 08-08-2022 Hospital Discharg e instructions Patient Education 08/08/2022 11:23:06 Monitored Anesthesia Care, Care After Monitored Anesthesia Care, Care After These instructions provide you with information about caring for yourself after your procedure. Your health care provider may also give you more specific instructions. Your treatment has been planned according to current medical practices, but problems sometimes occur. Call your health care provider if you have any problems or questions after your procedure. What can I expect after the procedure? After your procedure, you may: Feel sleepy for several hours. Feel clumsy and have poor balance for several hours. Feel forgetful about what happened after the procedure. Have poor judgment for several hours. Feel nauseous or vomit. Have a sore throat if you had a breathing tube during the procedure. Follow these instructions at home: For at least 24 hours after the procedure: Have a responsible adult stay with you. It is important to have someone help care for you until you are awake and alert. Rest as needed. Do not: ?Participate in activities in which you could fall or become injured. ?Drive. ?Use heavy machinery. ?Drink alcohol. ?Take sleeping pills or medicines that cause drowsiness. ?Make important decisions or sign legal documents. ?Take care of children on your own. Eating and drinking Follow the diet that is recommended by your health care provider. If you vomit, drink water, juice, or soup when you can drink without vomiting. Make sure you have little or no nausea before eating solid foods. General instructions Take xlyf-wuj-nvjnwds and prescription medicines only as told by your health care provider. If you have sleep apnea, surgery and certain medicines can increase your risk for breathing problems. Follow instructions from your health care provider about wearing your sleep device: ?Anytime you are sleeping, including during daytime naps. ?While taking prescription pain medicines, sleeping medicines, or medicines that make you drowsy. If you smoke, do not smoke without supervision. Keep all follow-up visits as told by your health care provider. This is important. Contact a health care provider if: You keep feeling nauseous or you keep vomiting. You feel light-headed. You develop a rash. You have a fever. Get help right away if: You have trouble breathing. Summary For several hours after your procedure, you may feel sleepy and have poor judgment. Have a responsible adult stay with you for at least 24 hours or until you are awake and alert. This information is not intended to replace advice given to you by your health care provider. Make sure you discuss any questions you have with your health care provider. Document Released: 02/26/2017 Document Revised: 02/04/2019 Document Reviewed: 02/26/2017 [employer] Patient Education 2020 [email or web address] 08/08/2022 11:22:54 Irritable Bowel Syndrome, Adult Irritable Bowel Syndrome, Adult Irritable bowel syndrome (IBS) is a group of symptoms that affects the organs responsible for digestion (gastrointestinal or GI tract). IBS is not one specific disease. To regulate how the GI tract works, the body sends signals back and forth between the intestines and the brain. If you have IBS, there may be a problem with these signals. As a result, the GI tract does not function normally. The intestines may become more sensitive and overreact to certain things. This may be especially true when you eat certain foods or when you are under stress. There are four types of IBS. These may be determined based on the consistency of your stool (feces): IBS with diarrhea. IBS with constipation. Mixed IBS. Unsubtyped IBS. It is important to know which type of IBS you have. Certain treatments are more likely to be helpful for certain types of IBS. What are the causes? The exact cause of IBS is not known. What increases the risk? You may have a higher risk for IBS if you: Are female. Are younger than 40. Have a family history of IBS. Have a mental health condition, such as depression, anxiety, or post-traumatic stress disorder. Have had a bacterial infection of your GI tract. What are the signs or symptoms? Symptoms of IBS vary from person to person. The main symptom is abdominal pain or discomfort. Other symptoms usually include one or more of the following: Diarrhea, constipation, or both. Abdominal swelling or bloating. Feeling full after eating a small or regular-sized meal. Frequent gas. Mucus in the stool. A feeling of having more stool left after a bowel movement. Symptoms tend to come and go. They may be triggered by stress, mental health conditions, or certain foods. How is this diagnosed? This condition may be diagnosed based on a physical exam, your medical history, and your symptoms. You may have tests, such as: Blood tests. Stool test. X-rays. CT scan. Colonoscopy. This is a procedure in which your GI tract is viewed with a long, thin, flexible tube. How is this treated? There is no cure for IBS, but treatment can help relieve symptoms. Treatment depends on the type of IBS you have, and may include: Changes to your diet, such as: ?Avoiding foods that cause symptoms. ?Drinking more water. ?Following a low-FODMAP (fermentable oligosaccharides, disaccharides, monosaccharides, and polyols) diet for up to 6 weeks, or as told by your health care provider. FODMAPs are sugars that are hard for some people to digest. ?Eating more fiber. ?Eating medium-sized meals at the same times every day. Medicines. These may include: ?Fiber supplements, if you have constipation. ?Medicine to control diarrhea (antidiarrheal medicines). ?Medicine to help control muscle tightening (spasms) in your GI tract (antispasmodic medicines). ?Medicines to help with mental health conditions, such as antidepressants or tranquilizers. Talk therapy or counseling. Working with a diet and nutrition coordinator (dietitian) to help create a food plan that is right for you. Managing your stress. Follow these instructions at home: Eating and drinking Eat a healthy diet. Eat medium-sized meals at about the same time every day. Do not eat large meals. Gradually eat more fiber-rich foods. These include whole grains, fruits, and vegetables. This may be especially helpful if you have IBS with constipation. Eat a diet low in FODMAPs. Drink enough fluid to keep your urine pale yellow. Keep a journal of foods that seem to trigger symptoms. Avoid foods and drinks that: ?Contain added sugar. ?Make your symptoms worse. Dairy products, caffeinated drinks, and carbonated drinks can make symptoms worse for some people. General instructions Take rhlr-czr-nbdtjec and prescription medicines and supplements only as told by your health care provider. Get enough exercise. Do at least 150 minutes of moderate-intensity exercise each week. Manage your stress. Getting enough sleep and exercise can help you manage stress. Keep all follow-up visits as told by your health care provider and therapist. This is important. Alcohol Use Do not drink alcohol if: ?Your health care provider tells you not to drink. ?You are , may be , or are planning to become . If you drink alcohol, limit how much you have: ?0 1 drink a day for women. ?0 2 drinks a day for men. Be aware of how much alcohol is in your drink. In the [place] one drink equals one typical bottle of beer (12 oz), one-half glass of wine (5 oz), or one shot of hard liquor (1 oz). Contact a health care provider if you have: Constant pain. Weight loss. Difficulty or pain when swallowing. Diarrhea that gets worse. Get help right away if you have: Severe abdominal pain. Fever. Diarrhea with symptoms of dehydration, such as dizziness or dry mouth. Bright red blood in your stool. Stool that is black and tarry. Abdominal swelling. Vomiting that does not stop. Blood in your vomit. Summary Irritable bowel syndrome (IBS) is not one specific disease. It is a group of symptoms that affects digestion. Your intestines may become more sensitive and overreact to certain things. This may be especially true when you eat certain foods or when you are under stress. There is no cure for IBS, but treatment can help relieve symptoms. This information is not intended to replace advice given to you by your health care provider. Make sure you discuss any questions you have with your health care provider. Document Released: 11/06/2006 Document Revised: 10/30/2018 Document Reviewed: 10/30/2018 [employer] Patient Education 2020 [email or web address] 08/08/2022 11:22:42 Colonoscopy, Adult, Care After Colonoscopy, Adult, Care After This sheet gives you information about how to care for yourself after your procedure. Your health care provider may also give you more specific instructions. If you have problems or questions, contact your health care provider. What can I expect after the procedure? After the procedure, it is common to have: A small amount of blood in your stool for 24 hours after the procedure. Some gas. Mild abdominal cramping or bloating. Follow these instructions at home: General instructions For the first 24 hours after the procedure: ?Do not drive or use machinery. ?Do not sign important documents. ?Do not drink alcohol. ?Do your regular daily activities at a slower pace than normal. ?Eat soft, kcaa-od-nejutu foods. Take skxw-lqh-umbeoet or prescription medicines only as told by your health care provider. Relieving cramping and bloating Try walking around when you have cramps or feel bloated. Apply heat to your abdomen as told by your health care provider. Use a heat source that your health care provider recommends, such as a moist heat pack or a heating pad. ?Place a towel between your skin and the heat source. ?Leave the heat on for 20 30 minutes. ?Remove the heat if your skin turns bright red. This is especially important if you are unable to feel pain, heat, or cold. You may have a greater risk of getting burned. Eating and drinking Drink enough fluid to keep your urine pale yellow. Resume your normal diet as instructed by your health care provider. Avoid heavy or fried foods that are hard to digest. Avoid drinking alcohol for as long as instructed by your health care provider. Contact a health care provider if: You have blood in your stool 2 3 days after the procedure. Get help right away if: You have more than a small spotting of blood in your stool. You pass large blood clots in your stool. Your abdomen is swollen. You have nausea or vomiting. You have a fever. You have increasing abdominal pain that is not relieved with medicine. Summary After the procedure, it is common to have a small amount of blood in your stool. You may also have mild abdominal cramping and bloating. For the first 24 hours after the procedure, do not drive or use machinery, sign important documents, or drink alcohol. Contact your health care provider if you have a lot of blood in your stool, nausea or vomiting, a fever, or increased abdominal pain. This information is not intended to replace advice given to you by your health care provider. Make sure you discuss any questions you have with your health care provider. Document Released: 06/20/2005 Document Revised: 08/29/2018 Document Reviewed: 01/17/2017 [employer] Patient Education RELEASEIF Follow Up Care 08/02/2022 08:34:04 With:LUC RAHMAN Address: [address] [place] [address] [address] [place] [address]- [phone] Business (1) When: Unknown Comments:CALL DR. RAHMAN'S OFFICE FOR A FOLLOW-UP APPOINTMENT. [facility] Summary of episode note 08-08-2022 Note Date & Type Note Facility 08-08-2022 Summary of episode note Discharge Instructions Thank you for allowing [facility] to assist you with your healthcare needs. The following is important discharge information regarding your hospital visit. Your Care Team LAUREN DAVIS MD What to do next Follow Up Appointments Follow Up with LUC RAHMAN When Why: CALL DR. RAHMAN'S OFFICE FOR A FOLLOW-UP APPOINTMENT. [facility] [address] [facility] [address] [place] [address]- [phone] [employer] (1) The Following Activity and Diet Have Been Ordered for You No qualifying data available. Allergies Lexapro Medications Please ask your primary doctor or pharmacist before taking any other medication not listed, including over the counter drugs, herbal medications, vitamins and or supplements as they may interact with your home medications. What How Much When Instructions Last Dose Unchanged FLUoxetine (FLUoxetine 20 mg oral capsule) 1 cap by mouth Once a day Unchanged omeprazole (omeprazole 40 mg oral delayed release capsule) 2 cap by mouth Once a day Please take this list to your next doctor s visit. Bring all medications you take, including over the counter medications, herbals and other supplements with you to your doctor s visit. Patients and families are reminded to discard old lists and to update any records with all medication providers or retail pharmacies. Education Materials Monitored Anesthesia Care, Care After These instructions provide you with information about caring for yourself after your procedure. Your health care provider may also give you more specific instructions. Your treatment has been planned according to current medical practices, but problems sometimes occur. Call your health care provider if you have any problems or questions after your procedure. What can I expect after the procedure? After your procedure, you may: Feel sleepy for several hours. Feel clumsy and have poor balance for several hours. Feel forgetful about what happened after the procedure. Have poor judgment for several hours. Feel nauseous or vomit. Have a sore throat if you had a breathing tube during the procedure. Follow these instructions at home: For at least 24 hours after the procedure: Have a responsible adult stay with you. It is important to have someone help care for you until you are awake and alert. Rest as needed. Do not: ? Participate in activities in which you could fall or become injured. ? Drive. ? Use heavy machinery. ? Drink alcohol. ? Take sleeping pills or medicines that cause drowsiness. ? Make important decisions or sign legal documents. ? Take care of children on your own. Eating and drinking Follow the diet that is recommended by your health care provider. If you vomit, drink water, juice, or soup when you can drink without vomiting. Make sure you have little or no nausea before eating solid foods. General instructions Take sbgb-xrl-pqgppgl and prescription medicines only as told by your health care provider. If you have sleep apnea, surgery and certain medicines can increase your risk for breathing problems. Follow instructions from your health care provider about wearing your sleep device: ? Anytime you are sleeping, including during daytime naps. ? While taking prescription pain medicines, sleeping medicines, or medicines that make you drowsy. If you smoke, do not smoke without supervision. Keep all follow-up visits as told by your health care provider. This is important. Contact a health care provider if: You keep feeling nauseous or you keep vomiting. You feel light-headed. You develop a rash. You have a fever. Get help right away if: You have trouble breathing. Summary For several hours after your procedure, you may feel sleepy and have poor judgment. Have a responsible adult stay with you for at least 24 hours or until you are awake and alert. This information is not intended to replace advice given to you by your health care provider. Make sure you discuss any questions you have with your health care provider. Document Released: 02/26/2017 Document Revised: 02/04/2019 Document Reviewed: 02/26/2017 [employer] Patient Education 2020 [email or web address]. Irritable Bowel Syndrome, Adult Irritable bowel syndrome (IBS) is a group of symptoms that affects the organs responsible for digestion (gastrointestinal or GI tract). IBS is not one specific disease. To regulate how the GI tract works, the body sends signals back and forth between the intestines and the brain. If you have IBS, there may be a problem with these signals. As a result, the GI tract does not function normally. The intestines may become more sensitive and overreact to certain things. This may be especially true when you eat certain foods or when you are under stress. There are four types of IBS. These may be determined based on the consistency of your stool (feces): IBS with diarrhea. IBS with constipation. Mixed IBS. Unsubtyped IBS. It is important to know which type of IBS you have. Certain treatments are more likely to be helpful for certain types of IBS. What are the causes? The exact cause of IBS is not known. What increases the risk? You may have a higher risk for IBS if you: Are female. Are younger than 40. Have a family history of IBS. Have a mental health condition, such as depression, anxiety, or post-traumatic stress disorder. Have had a bacterial infection of your GI tract. What are the signs or symptoms? Symptoms of IBS vary from person to person. The main symptom is abdominal pain or discomfort. Other symptoms usually include one or more of the following: Diarrhea, constipation, or both. Abdominal swelling or bloating. Feeling full after eating a small or regular-sized meal. Frequent gas. Mucus in the stool. A feeling of having more stool left after a bowel movement. Symptoms tend to come and go. They may be triggered by stress, mental health conditions, or certain foods. How is this diagnosed? This condition may be diagnosed based on a physical exam, your medical history, and your symptoms. You may have tests, such as: Blood tests. Stool test. X-rays. CT scan. Colonoscopy. This is a procedure in which your GI tract is viewed with a long, thin, flexible tube. How is this treated? There is no cure for IBS, but treatment can help relieve symptoms. Treatment depends on the type of IBS you have, and may include: Changes to your diet, such as: ? Avoiding foods that cause symptoms. ? Drinking more water. ? Following a low-FODMAP (fermentable oligosaccharides, disaccharides, monosaccharides, and polyols) diet for up to 6 weeks, or as told by your health care provider. FODMAPs are sugars that are hard for some people to digest. ? Eating more fiber. ? Eating medium-sized meals at the same times every day. Medicines. These may include: ? Fiber supplements, if you have constipation. ? Medicine to control diarrhea (antidiarrheal medicines). ? Medicine to help control muscle tightening (spasms) in your GI tract (antispasmodic medicines). ? Medicines to help with mental health conditions, such as antidepressants or tranquilizers. Talk therapy or counseling. Working with a diet and nutrition coordinator (dietitian) to help create a food plan that is right for you. Managing your stress. Follow these instructions at home: Eating and drinking Eat a healthy diet. Eat medium-sized meals at about the same time every day. Do not eat large meals. Gradually eat more fiber-rich foods. These include whole grains, fruits, and vegetables. This may be especially helpful if you have IBS with constipation. Eat a diet low in FODMAPs. Drink enough fluid to keep your urine pale yellow. Keep a journal of foods that seem to trigger symptoms. Avoid foods and drinks that: ? Contain added sugar. ? Make your symptoms worse. Dairy products, caffeinated drinks, and carbonated drinks can make symptoms worse for some people. General instructions Take ojdo-ndi-vpmlsmu and prescription medicines and supplements only as told by your health care provider. Get enough exercise. Do at least 150 minutes of moderate-intensity exercise each week. Manage your stress. Getting enough sleep and exercise can help you manage stress. Keep all follow-up visits as told by your health care provider and therapist. This is important. Alcohol Use Do not drink alcohol if: ? Your health care provider tells you not to drink. ? You are , may be , or are planning to become . If you drink alcohol, limit how much you have: ? 0 1 drink a day for women. ? 0 2 drinks a day for men. Be aware of how much alcohol is in your drink. In the [place] one drink equals one typical bottle of beer (12 oz), one-half glass of wine (5 oz), or one shot of hard liquor (1 oz). Contact a health care provider if you have: Constant pain. Weight loss. Difficulty or pain when swallowing. Diarrhea that gets worse. Get help right away if you have: Severe abdominal pain. Fever. Diarrhea with symptoms of dehydration, such as dizziness or dry mouth. Bright red blood in your stool. Stool that is black and tarry. Abdominal swelling. Vomiting that does not stop. Blood in your vomit. Summary Irritable bowel syndrome (IBS) is not one specific disease. It is a group of symptoms that affects digestion. Your intestines may become more sensitive and overreact to certain things. This may be especially true when you eat certain foods or when you are under stress. There is no cure for IBS, but treatment can help relieve symptoms. This information is not intended to replace advice given to you by your health care provider. Make sure you discuss any questions you have with your health care provider. Document Released: 11/06/2006 Document Revised: 10/30/2018 Document Reviewed: 10/30/2018 [employer] Patient Education 2020 [employer]. Colonoscopy, Adult, Care After This sheet gives you information about how to care for yourself after your procedure. Your health care provider may also give you more specific instructions. If you have problems or questions, contact your health care provider. What can I expect after the procedure? After the procedure, it is common to have: A small amount of blood in your stool for 24 hours after the procedure. Some gas. Mild abdominal cramping or bloating. Follow these instructions at home: General instructions For the first 24 hours after the procedure: ? Do not drive or use machinery. ? Do not sign important documents. ? Do not drink alcohol. ? Do your regular daily activities at a slower pace than normal. ? Eat soft, zehz-kv-kdndkl foods. Take hvho-sdj-javirzm or prescription medicines only as told by your health care provider. Relieving cramping and bloating Try walking around when you have cramps or feel bloated. Apply heat to your abdomen as told by your health care provider. Use a heat source that your health care provider recommends, such as a moist heat pack or a heating pad. ? Place a towel between your skin and the heat source. ? Leave the heat on for 20 30 minutes. ? Remove the heat if your skin turns bright red. This is especially important if you are unable to feel pain, heat, or cold. You may have a greater risk of getting burned. Eating and drinking Drink enough fluid to keep your urine pale yellow. Resume your normal diet as instructed by your health care provider. Avoid heavy or fried foods that are hard to digest. Avoid drinking alcohol for as long as instructed by your health care provider. Contact a health care provider if: You have blood in your stool 2 3 days after the procedure. Get help right away if: You have more than a small spotting of blood in your stool. You pass large blood clots in your stool. Your abdomen is swollen. You have nausea or vomiting. You have a fever. You have increasing abdominal pain that is not relieved with medicine. Summary After the procedure, it is common to have a small amount of blood in your stool. You may also have mild abdominal cramping and bloating. For the first 24 hours after the procedure, do not drive or use machinery, sign important documents, or drink alcohol. Contact your health care provider if you have a lot of blood in your stool, nausea or vomiting, a fever, or increased abdominal pain. This information is not intended to replace advice given to you by your health care provider. Make sure you discuss any questions you have with your health care provider. Document Released: 06/20/2005 Document Revised: 08/29/2018 Document Reviewed: 01/17/2017 [employer] Patient Education 2020 [employer] Additional Information VACCINATE! IT SAVES LIVES! Members of the community who have not yet received the COVID-19 vaccine and would like to receive it can visit one of [facility] vaccine clinics. There are many vaccine clinic locations within the [facility]. For locations and available times, please visit [email or web address] It is important to note that some COVID mobile vaccine clinics are held outdoors and may be canceled in rainy or stormy conditions. To learn more about pediatric vaccinations (ages 5-11), we invite you to visit the [facility] webpage. [email or web address]/pag [email or web address]-Jzryp-Bwkmlknlvlf-[email or web address] uw-[email or web address]-Xtiteyntx.html To learn more about the COVID-19 vaccine, we invite you to visit the [facility] website for a list of frequently asked questions. [email or web address] ently_[email or web address] [facility] Patient Portal Access Instructions: Stay connected with your healthcare team and access your personal medical information anytime with the [facility] Patient Portal.If you would like a full copy of your medical records, please contact the [facility] Medical Records Department, Monday through Monday between 8a.m. and 4:30p.m. Please follow the directions below to access the portal: 1.Access the email account you provided upon registration to the [facility].2.Look for an invitation email from [facility].3.Open the email and access the invitation link: Accept Invitation to [facility].Fill in the required alatorre to create your account. Sign into [email or web address] with your username and password that you created in the above steps to stay up to date. You can then view a summary of results, a summary of your visits, and the ability to download your summaries to your computer or send the information securely to a physician. Remember that your healthcare information is confidential, so carefully consider who you will allow to register on the [facility] Patient Portal for access to your information. You can also access the [facility] Patient Portal on the [employer]. Simply click on Health Records under Health Data and then click on the [email or web address] logo. HOW TO SAFELY DISPOSE OF PRESCRIPTION MEDICATIONS Please use one of the following methods to safely dispose of your unused medications. 1.Use a drug disposal kit: the drug disposal pouch allows you to safely discard your old and unused drugs. Ask your nurse to give you one when you are discharged.2.Visit a local take-back location: Many local pharmacies and police departments have programs that collect old and unwanted prescription drugs. Call your local pharmacy or go to http://Toodalu.iBid2Save/3V7Tf5x to find one close to you.3.Make use of household items: Use cat litter or old coffee grounds to dispose medications if other options are not available. Mix your drugs with these household products, seal them in an airtight container and throw it into the garbage. Call [facility]: [phone] to be sure your drugs can be disposed of in this way. Some medicines may require a different approach.4.Never flush your medications down the toilet. IF YOU HAVE BEEN PRESCRIBED AN OPIOID FOR PAIN If you have been prescribed an opioid (such as hydrocodone, oxycodone or morphine), it is critical to understand the possible side effects and risks of opioid pain medications. Even when taken as directed, opioids can have several side effects including: Tolerance, meaning you might need to take more of a medication for the same pain relief. Nausea, vomiting and/or constipation. Sleepiness, dizziness, dry mouth, confusion, depression or itching. Physical dependence, meaning you have withdrawal symptoms when a medication is stopped, can develop within a few days. KNOW YOUR RESPONSIBILITIES It is important to know exactly how much and how often to take the opioid pain medications you are prescribed. Never take opioids in higher amounts or more often than prescribed. Do not combine opioids with alcohol or other drugs that cause drowsiness, such as benzodiazepines, also known as benzos, including diazepam and alprazolam, muscle relaxants or sleep aids. Never sell or share prescription opioids. This is illegal. Store opioids in a secure place and out of reach of others (including children, family, friends and visitors). The last page of this document has been signed and retained as a CHART COPY. Signatures Patient Education Materials Monitored Anesthesia Care, Care After Irritable Bowel Syndrome, Adult Colonoscopy, Adult, Care After Medication Leaflets My discharge plan and instructions have been reviewed and explained to me and ICALDERON KATIE J understand my current condition and have read and understand these discharge instructions. I have received a written copy of the plan/instructions. If I have questions, I am aware that I should contact my doctor. Patient/Assistant To The Dean Signature: Date/Time: Relationship to Patient: ___ Witness Name/Signature: Date/Time: [facility] Anesthesiology Consult note 08-08-2022 Note Date & Type Note Facility 08-08-2022 Anesthesiology Consult note Patient: JAIRO MANCERA Age: 26 years Sex: Female : 1995 Associated Diagnoses: None Author: NOEL ALICIA Assessment Postanesthesia assessment Vitals: Reviewed Results: Vital signs from flowsheet : Vital Signs(Date Range: 08/07/2022 0:00 EDT - 08/08/2022 11:01 EDT) . Mental status: at preoperative baseline. Respiratory function: lungs are clear to auscultation. Respiratory support: none. CV function: Normal rate. Cardiovascular support: none. Pain. Nausea status: denies nausea. Postoperative hydration status: within normal limits. Digitally Signed by NOEL ALICIA on 08/08/2022 11:01 AM [facility] Anesthesiology Consult note 08-08-2022 Note Date & Type Note Facility 08-08-2022 Anesthesiology Consult note Patient: JAIRO MANCERA Age: 26 years Sex: Female : 1995 Associated Diagnoses: None Author: NOEL ALICIA Preoperative Information Time of last food or liquid consumption: 08/08/2022 00:00:00 Anesthesia history Patient's history: negative. Family's history: negative. Health Status Allergies: Allergic Reactions (Selected) Severity Not Documented Lexapro- No reactions were documented., Allergies (1) ActiveReaction LexaproNone Documented Current medications: (Selected) Inpatient Medications Ordered LR 1,000 mL: 50 mL/hr, Intravenous Documented Medications Documented FLUoxetine 20 mg oral capsule: 20 mg, 1 cap(s), Oral, qDay, 90 cap(s), 0 Refill(s) omeprazole 40 mg oral delayed release capsule: 80 mg, 2 cap(s), Oral, qDay, 60 cap(s), 0 Refill(s), Medications (1) Active Scheduled: (0) Continuous: (1) Lactated Ringers Infusion 1,000 mL 1,000 mL, Intravenous, 50 mL/hr PRN: (0) Problem list: Active Problems (9) Abdominal pain Bloody stool Chest pain Diarrhea Difficulty breathing GERD (gastroesophageal reflux disease) Morbid obesity with BMI of 50.0-59.9, adult Nausea Tobacco use Histories Past Medical History: No active or resolved past medical history items have been selected or recorded., morbidly obese, asthma MARIANNA Family History: No family history items have been selected or recorded. Procedure history: Colonoscopy ([id number]) on 08/08/2022 at 26 Years. Social History Social & Psychosocial Habits Alcohol 08/08/2022 Use: Never Tobacco 08/08/2022 Tobacco Use: 10 or more cigarettes (1/ Type: Cigarettes Tobacco use per day: 20 Number of years: 7 Previous treatment: None Ready to change: No Smoking Cessation Information Refused smoking cessation . Physical Examination No qualifying data available General: Alert and oriented. Airway: Normal temporomandibular joint mobility. Mallampati classification: II (soft palate, fauces, uvula visible). Head: Normocephalic. Dentition Evaluation: Intact. Neck: Supple. Respiratory: Lungs are clear to auscultation. Cardiovascular: Normal rate. Heart Sounds: Normal. Gastrointestinal: Soft. Musculoskeletal Normal range of motion. Integumentary: Intact. Neurologic: Alert. Review / Management Results review: No qualifying data available . Assessment and Plan [place] [employer] Anesthesiologists (ASA) physical status classification: Class III. Anesthetic Preoperative Plan Premedication: None. Anesthetic technique: MAC. Induction: intravenously. Postoperative pain management: Per surgeon. Risks discussed: nausea, vomiting, headache, sore throat, dental injury, hypotension, allergic reaction, serious complications. Informed consent: signed by patient. Digitally Signed by NOEL ALICIA on 08/08/2022 11:01 AM [facility] Clinical Note 08-08-2022 Note Date & Type Note Facility 08-08-2022 Note [facility] ADMISSION HISTORY AND PHYSICIAL CHIEF COMPLAINT: HISTORY OF PRESENT ILLNESS: REVIEW OF SYSTEMS: ACTIVE PROBLEMS: (9) Abdominal pain (52322260) Bloody stool (5192638034) Chest pain (18003821) Diarrhea (435140518) Difficulty breathing (706973607) GERD (gastroesophageal reflux disease) (710662753) Morbid obesity with BMI of 50.0-59.9, adult (8620288635) Nausea (4512692548) Tobacco use (6751235960) MEDICATIONS: Active Inpt Meds: None Active PRN Meds: None One Time Meds: None Active IV Meds: Lactated Ringers Infusion 1,000 mL (LR 1,000 mL) Start: 08/08/22 9:49:00 EDT, Rate: 50 mL/hr, 08/08/22 9:49:00 EDT ALLERGIES: (1) Lexapro FAMILY HISTORY: SOCIAL HISTORY: PHYSICAL EXAM: VITALS: [id number](k g) 08/08 09:5736.3113/[id number]/46481.0 24 Hr Tmax: 36.3 at 08/08 09:57 36 Hr Tmax: 36.3 at 08/08 09:57 Vital Signs are the last 5 in the past 48 hours. Weights display the last 5 within 7 days. Initial Wt: 08/08 167.0 kg 367 lb Current Wt: 08/08 167.0 kg 367 lb GENERAL: HEENT: CARDIOVASCULAR: RESPIRATORY: ABDOMEN: EXREMETIES: NEUROLOGICAL: PSYCHIATRIC: LABS: No 36hr Lab Data DIAGNOSTICS: IMPRESSION: PLAN: History and Physical Update I have examined the patient; reviewed the H&P and there are no changes to the H&P unless noted below. Digitally Signed by LUC RAHMAN MD on 08/08/2022 10:42 AM [facility] Evaluation + Plan note LaboratoryRadiology Note Date & Type Note Facility Evaluation + Plan note Future Appointments Appointment Date:08/08/2023 11:00:00 AM Scheduled Provider: Location:[facility] Appointment Type: OB < 14 weeks Appointment Date:08/08/2023 01:00:00 PM Scheduled Provider:MAX POP MD Location:[facility] Appointment Type: OV OB Routine Follow Up Future Scheduled TestsAntibody Screen Gel 07/26/23ABO/Rh Gel 07/26/23HIV 1/2 Ab 07/26/23Urine test (LAB) 08/08/22US OB Limited/Transvaginal 07/26/23US OB < 14 weeks 08/08/23 [facility] Hospital course Narrative Note Date & Type Note Facility Hospital course Narrative No data available for this section [facility] Hospital Discharge instructions Note Date & Type Note Facility Hospital Discharge instructions No data available for this section [facility] Progress note Note Date & Type Note Facility Progress note No data available for this section [facility] Summary Purpose Family History No Family History Records Found No data available for this section Advance Directives No Advanced Directives Records Found Additional Source Comments Care Team (unrecognized sect ion and content) Care Team Personnel Name: LAUREN DAVIS MD Member Role: Primary Care Physician Address: Address: [address] [place] [address]- Care Team Related Persons Name: JOANN MANCERA Address: [address] [place] [address] INFORMATION SOURCE (unrecogn ized section and content) Patient Care team informatio n (unrecognized section and content) Care Team Personnel Name: LAUREN DAVIS MD Member Role: Primary Care Physician Address: Address: [address] [place] [address]- Care Team Related Persons Name: JOANN MANCERA Address: Home [address] [place] [address] FOR RECORDS PERTAINING TO PATIENTS WHO ARE OR HAVE BEEN ENROLLED IN A CHEMICAL DEPENDENCY/SUBSTANCEABUSE PROGRAM, SOME INFORMATION MAY BE OMITTED. This clinical summary was aggregated from multiple sources. Caution should be exercised in using it in the provision of clinical care. This summary normalizes information from multiple sources, and as a consequence, information in this document may materially change the coding, format and clinical context of patient data. In addition, data may be omitted in some cases. CLINICAL DECISIONS SHOULD BE BASED ON THE PRIMARY CLINICAL RECORDS. [facility]. provides no warranty or guarantee of the accuracy or completeness of information in this document.
[2023-11-16 12:42] LABS: hCG Titer Quant., Serum 2867 mIU/mL (1-3)
[2023-11-16 12:50] VITALS: BP 126/71; PULSE 72; RESP 15; O2SAT 98
[2023-11-16] MEDS: miSOPROStol 200 MCG Tablet 1000 MCG PO (13:55)
[2023-11-16 14:03] VITALS: BP 124/66; PULSE 78; RESP 15; O2SAT 99
== END 2023-11-16 14:03 | disposition home or self-care (01) ==
PROVIDERS: Emergency Provider Emergency Medicine; PCP Family Medicine; Visit Provider Emergency Medicine
DX: O03.4 Incomplete spontaneous abortion without complication (principal); O26.891 Other specified pregnancy related conditions, first trimester; O99.331 Smoking (tobacco) complicating pregnancy, first trimester; R10.2 Pelvic and perineal pain; O99.341 Other mental disorders complicating pregnancy, first trimester; F32.A Depression, unspecified; Z79.899 Other long term (current) drug therapy; O99.611 Diseases of the digestive system complicating pregnancy, first trimester; K21.9 Gastro-esophageal reflux disease without esophagitis; F17.210 Nicotine dependence, cigarettes, uncomplicated
CPT/HCPCS: 76817; 84702; 85014; 85018; 99283; A4216

== ENCOUNTER → 2023-11-22 | Outpatient (CLI) | payer OTHER, SELFPAY ==
[2023-11-22 17:08] LABS: hCG Titer Quant., Serum 79 mIU/mL (1-3)
== END | disposition home or self-care (01) ==
PROVIDERS: PCP Family Medicine; Referring Provider Obstetrics & Gynecology; Visit Provider Obstetrics & Gynecology
DX: O03.4 Incomplete spontaneous abortion without complication (principal)
CPT/HCPCS: 36415; 84702

== ENCOUNTER → 2024-07-17 | Outpatient (CLI) | payer OTHER, SELFPAY ==
[2024-07-17 18:12] LABS: Absolute Lymphocyte Count 3.65 X10^3/uL (0.83-4.51); Absolute Neutrophil Count 6.4 X10^3/uL (2.0-7.7); Basophil# 0.09 X10^3/uL; Basophil% 0.8 % (0-1); Eosinophil# 0.38 X10^3/uL; Eosinophils% 3.4 % (0-5); Hematocrit 43.5 % (37-47); Hemoglobin 14.2 g/dL (12.0-15.0); Lymphocyte # 3.65 X10^3/ul (0.83-4.51); Lymphocyte % 33.1 % (19-41); Mean Corp Hgb Conc 32.6 g/dL (32-36); Mean Corpuscular Hgb 28.5 pg (27.0-32.0); Mean Corpuscular Volume 87.2 fL (81-99); Mean Platelet Vol. 12.1 fl (6.2-12.0); Monocyte% 4.5 % (0-10); NRBC Flagged by Analyzer 0 % (0-5); Neutrophil # 6.36 X10^3/uL (2.7-7.7); Neutrophil % 57.8 % (47-70); Platelet Count 337 K/mm3 (150-450); RBC Distribution Width CV 13.1 % (11.6-14.6); RBC Distribution Width SD 41.2 fl (35.1-43.9); Red Blood Count 4.99 M/mm3 (4.2-5.4)
[2024-07-17 18:46] LABS: ALB/GLOB Ratio 0.9 RATIO (0.9-2.4); AST(SGOT) 15 U/L (15-37); Alanine Aminotransfer ALT/SGPT 33 U/L (13-56); Albumin, Serum 3.5 g/dL (3.2-5.0); Alkaline Phosphatase 73 U/L (45-117); Anion Gap 5 (5-15); BUN 10 mg/dL (7-18); BUN/Creat Ratio 12.9 RATIO (10-20); Calcium,Total 9.2 mg/dL (8.5-10.1); Chloride 109 mmol/L (98-107); Creatinine, Serum 0.78 mg/dL (0.55-1.02); EST Glomerular Filtration Rate 94 mL/min (>60); Est Glom Filt Rate - Afr Amer 114 mL/min (>60); Globulin 3.8 g/dL (2.2-4.2); Glucose 95 mg/dL (74-106); Magnesium 2.3 mg/dL (1.6-2.6); Potassium 4.3 mmol/L (3.5-5.1); Protein, Total 7.3 g/dL (6.4-8.2); Sodium Level 139 mmol/L (136-145)
[2024-07-18 08:49] LABS: T4 Free Direct 0.98 ng/dL (0.76-1.46)
== END | disposition home or self-care (01) ==
LOC: MFPLAB 16:56
PROVIDERS: PCP Family Medicine; Visit Provider Family Medicine
DX: R00.2 Palpitations (principal)
CPT/HCPCS: 36415; 80053; 83735; 84439; 84443; 85025

== ENCOUNTER 2024-07-30 22:25 | Emergency (ER) | payer OTHER, SELFPAY ==
[2024-07-30 22:26] VITALS: BP 136/76; PULSE 66; RESP 16; TEMP 35.6; O2SAT 97; BMI 53.3
--- NOTE | 2024-07-30 23:04 | EKG12_ITS ---
Test Reason : ANXIETY Blood Pressure : / mmHG Vent. Rate : 063 BPM Atrial Rate : 063 BPM P-R Int : 150 ms QRS Dur : 086 ms QT Int : 394 ms P-R-T Axes : 040 040 046 degrees QTc Int : 403 ms Normal sinus rhythm Low voltage QRS Borderline ECG Confirmed by NELLY RECINOS, TITO ([id number]), editor house organ DORETHA ADHIKARI ([id number]) on 07/31/2024 1:23:12 PM Referred By: Confirmed By:TITO VILLEGAS MD
--- NOTE | 2024-07-30 23:04 | EX.ED.VIS.PS ---
HPI HPI - Psych History of Present Illness Chief Complaint: Anxiety Informant: patient and spouse/S.O. Narrative Narrative: 28-year-old female states she has had 3 anxiety/panic attacks in the last couple hours. She describes an overwhelming feeling of discomfort and anxiety, shaking, like once she has had often in the past except this is 3 in a row which is unusual and she had tingling down her left arm. She is feeling a little short of breath as well. No chest discomfort no presyncope or syncope. No focal neurologic symptoms otherwise. She just started fluoxetine 2 weeks ago for anxiety, after taking a hiatus from medication for her anxiety for the past year. Significant other states she has been having a lot more anxiety attacks in the past month or so hence getting back on the medication. PFSH PFS Medical History Alcohol abuse Anxiety Depression GERD (gastroesophageal reflux disease) Smoker Asthma Irregular heart beat Migraines Home Medications ?Medication ?Instructions ?Recorded ?Last Taken ?Type fluoxetine 20 mg capsule 20 mg PO BID Check with primary 05/30/21 05/28/21 History doctor omeprazole 40 mg capsule,delayed 40 mg PO BID Check with primary 05/30/21 05/29/21 History release doctor albuterol sulfate 90 mcg/actuation 2 - 4 puff inhalation Q4H PRN 05/31/21 Unknown Rx aerosol inhaler shortness of breath or wheezing #8.5 grams oxycodone-acetaminophen 5 mg-325 1 tab PO Q4H PRN PRN Pain 3 days 11/16/23 Unknown Rx mg tablet #10 TABLETS Allergy/AdvReac Type Severity Reaction Status Date / Time escitalopram (From Lexapro) AdvReac unknown Verified 07/30/24 22:26 Family History Mother CVA (cerebral vascular accident) Liver disease Myocardial infarction x5 Diabetes Retinal detachment Hypertrophic cardiomyopathy Grandmother Breast cancer and great-grandmother Father Liver disease Diabetes Other Heart disease Surgical History S/P D&C (status post dilation and curettage) Social History adopted: No household members: spouse housing: apartment current occupational status: employed current occupation: [email or web address] current occupational exposures/hazards: No pets and animals: No history of recent travel: No sexually active: Yes Smoking Status: Current every day smoker tobacco type: cigarettes Tobacco: How many years used: 8 alcohol intake: never substance use type: former substance user and marijuana well-balanced diet: about half the time caffeine: Yes Type: carbonated beverages and coffee eating out: 1-3 times/week during the past year weight has: remained stable what type of physical activity do you participate in: walking and bicycling frequency: 1-2 times per week duration: 30-45 minutes/day mireya/pentecostalism: Mormon seatbelt use: sometimes do you feel safe at home: Yes 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 ROS ED Constitutional Constitutional ED: Denies chills or fever(s) Eyes Eyes: Denies change in vision or diplopia ENT ENT ED: Denies rhinorrhea, sore throat or vertigo Cardiovascular Cardiovascular: Reports lightheadedness; Denies chest pain or palpitations Respiratory/Chest Respiratory/Chest: Reports dyspnea; Denies cough Gastrointestinal Gastrointestinal: Reports nausea; Denies abdominal pain, diarrhea or vomiting Genitourinary Genitourinary ED: Denies dysuria or hematuria Musculoskeletal Musculoskeletal: Denies back pain or neck pain Integumentary Denies abscess or rash Neurologic Neurologic: Reports paresthesias LUE; Denies headache(s) or weakness Psychiatric Psychiatric: Reports anxiety; Denies suicidal ideation or suicidal thoughts EXAM Physical Exam Const Vital Signs: 07/30/24 22:26 Temperature 96.1 F L Temperature Source Temporal Pulse Rate 66 Respiratory Rate 16 Blood Pressure 136/76 H Blood Pressure Mean 96 Pulse Ox 97 Oxygen Delivery Method Room Air Positive well nourished, well developed and obese General Appearance ED: well developed and NAD Nutritional Appearance: obese HEENT Reports moist mucous membranes normocephalic and atraumatic Eyes PERRL and EOMs intact bilaterally Neck full ROM and supple Resp normal respiratory effort Resp Narrative: Mild expiratory wheezes throughout; no prolonged expiratory phase or respiratory distress. Cardio regular rate, regular rhythm and no murmurs Rate: Negative for tachycardic GI non-tender and non-distended Auscultation: normoactive bowel sounds Palpation: soft Back/Spine no CVA tenderness General Back: other FROM Extremity normal to inspection General Extremety ED: Negative for edema, pulses abnormal or tenderness General Extremity: Negative for edema or pulses abnormal Neuro oriented x3, CN's II-XII intact bilaterally and no sensory deficits noted Sensorium / Orientation: awake and alert Motor Exam: strength 5/5 throughout Psych mental status grossly normal, thought process normal, cooperative, speech normal, activity/motor behavior normal, denies hallucinations, denies homicidal ideation and denies suicidal ideation Skin no rashes or lesions noted and no wounds MDM MDM MDM Narrative Medical decision making narrative: Initially patient given a dose of IM but she states it did not help at all. I did an EKG given the left arm tingling and discomfort, that shows no dysrhythmia or signs of acute ischemia, it is essentially normal. Patient states she has not slept in 24 hours, she still feels very anxious on the inside, I do not think that she has any dangerous acute organic pathology going on, but she states she is nauseated feels little dizzy and has a bit of a headache. Therefore I gave her some migraine treatment with IV placed, followed by Reglan, Benadryl, Toradol. She feels much better on reevaluation. Reassured and discharged home with her significant other. Rhythm Strip Rhythm Strip: Sinus Rhythm Rate: 65 Ectopy: None EKG Initial EKG: Attestation: I personally reviewed and interpreted this EKG as follows: Interpretation: Sinus Rhythm and No Acute Injury Pattern Comments: nml EKG Discharge Plan Triage Chief Complaint: Anxiety ED Provider: Deepak Longo Dx/Rx/DC Orders Clinical Impression: Anxiety attack, Migraine Instructions: Anxiety Disorders Tx Prescriptions: No Action fluoxetine 20 mg Capsule 20 mg PO BID omeprazole 40 mg Capsule,Delayed Release(Dr/Ec) 40 mg PO BID albuterol sulfate 90 mcg/actuation HFA aerosol inhaler 2 - 4 puff inhalation Q4H PRN (Reason: shortness of breath or wheezing) Qty: 8.5 0RF oxycodone-acetaminophen [oxycodone-acetaminophen] 5-325 mg tablet 1 tab PO Q4H PRN PRN (Reason: Pain) 3 Days Qty: 10 0RF Primary Care Provider: Wicho Jackson Referrals: Wicho Jackson MD [Primary Care Provider] - As Needed Print Language: Greek Disposition Disposition: Home, Self Care
[2024-07-30] MEDS: LORazepam 2 MG/ML Syringe 1 MG IM (23:09)
[2024-07-30] MEDS: Ketorolac 30 MG/ML Syringe IV (23:57)
[2024-07-30] MEDS: DiphenhydrAMINE 50 MG/ML Syringe 25 MG IV (23:57)
[2024-07-30] MEDS: Metoclopramide 10 MG/2 ML Vial 5 MG IV (23:57)
[2024-07-31 00:49] VITALS: BP 142/83; PULSE 63; RESP 18; TEMP 36.4; O2SAT 95
== END 2024-07-31 00:51 | disposition home or self-care (01) ==
PROVIDERS: Emergency Provider Emergency Medicine; PCP Family Medicine; Visit Provider Emergency Medicine
DX: F41.9 Anxiety disorder, unspecified (principal); F17.210 Nicotine dependence, cigarettes, uncomplicated; G43.909 Migraine, unspecified, not intractable, without status migrainosus; F32.A Depression, unspecified; Z79.899 Other long term (current) drug therapy; K21.9 Gastro-esophageal reflux disease without esophagitis
CPT/HCPCS: 93005; 96372; 96374; 96375; 99283; A4216

== ENCOUNTER → 2024-10-23 | Outpatient (CLI) | payer OTHER, SELFPAY ==
--- NOTE | 2024-10-23 14:54 | NEURO ---
NCS and/or EMG Patient Report Ordering Doctor: Jose Redding DATE OF SERVICE: 10/23/24 Scarlett presents with complaints of numbness and tingling in both hands. Symptoms are worse on the left side. Electrodiagnostic findings: Left median motor nerve demonstrates prolonged distal latency with normal amplitude and reduced conduction velocity. Right median motor nerve demonstrates normal distal latency with normal amplitude and conduction velocity. Ulnar motor response within normal limits bilaterally. Normal median and ulnar F?waves. Borderline prolonged median sensory latency at the wrist bilaterally. Absent right median palmar response. Normal ulnar and radial sensory responses. Needle EMG testing was performed upper limbs. All muscles tested showed no evidence of denervation with normal motor units potentials Electrodiagnostic impression: This is an abnormal study 1. Electrodiagnostic findings suggestive of bilateral median mononeuropathy. This consistent with a moderate left carpal tunnel syndrome and a mild right carpal tunnel syndrome 2. No electrodiagnostic evidence is noted for cervical radiculopathy Multi Select Codes Neurology Neurology Interp Codes: 64676-63 Musc test done w/n test comp (interp) (2) and 16872-00 Nrv cndj test 11-12 studies (interp)
== END | disposition home or self-care (01) ==
PROVIDERS: PCP Family Medicine; Referring Provider Orthopaedic Surgery Sports Medicine; Visit Provider Orthopaedic Surgery Sports Medicine
DX: G56.03 Carpal tunnel syndrome, bilateral upper limbs (principal)
CPT/HCPCS: 95886; 95912

== ENCOUNTER → 2025-01-13 | Outpatient (CLI) | payer OTHER, SELFPAY ==
[2025-01-13 17:35] LABS: hCG Titer Quant., Serum 239 mIU/mL (1-3)
== END | disposition home or self-care (01) ==
LOC: LAB 16:00
PROVIDERS: PCP Family Medicine; Referring Provider Obstetrics & Gynecology; Visit Provider Obstetrics & Gynecology
DX: N91.2 Amenorrhea, unspecified (principal); N96 Recurrent pregnancy loss
CPT/HCPCS: 36415; 84702

== ENCOUNTER 2025-01-15 14:56 | Emergency (ER) | payer OTHER, SELFPAY ==
[2025-01-15 14:57] VITALS: BP 160/90; PULSE 113; RESP 16; TEMP 36; O2SAT 99; BMI 57.8
[2025-01-15 15:45] LABS: Absolute Lymphocyte Count 2.99 X10^3/uL (0.83-4.51); Absolute Neutrophil Count 7.6 X10^3/uL (2.0-7.7); Basophil# 0.07 X10^3/uL; Basophil% 0.6 % (0-1); Eosinophil# 0.43 X10^3/uL; Eosinophils% 3.6 % (0-5); Hemoglobin 12.8 g/dL (12.0-15.0); Lymphocyte # 2.99 X10^3/ul (0.83-4.51); Lymphocyte % 25.1 % (19-41); Mean Corp Hgb Conc 32.8 g/dL (32-36); Mean Corpuscular Volume 88.2 fL (81-99); Mean Platelet Vol. 11.5 fl (6.2-12.0); Monocyte# 0.73 X10^3/uL; Monocyte% 6.1 % (0-10); NRBC Flagged by Analyzer 0 % (0-5); Neutrophil # 7.61 X10^3/uL (2.7-7.7); Neutrophil % 64.1 % (47-70); Platelet Count 263 K/mm3 (150-450); RBC Distribution Width CV 13.1 % (11.6-14.6); RBC Distribution Width SD 42.5 fl (35.1-43.9); Red Blood Count 4.42 M/mm3 (4.2-5.4); White Blood Count 11.9 K/mm3 (4.4-11.0)
[2025-01-15 16:26] LABS: hCG Titer Quant., Serum 112 mIU/mL (<9 non-preg)
[2025-01-15 17:00] VITALS: BP 153/86; PULSE 66
[2025-01-15 17:05] LABS: Color, Urine Yellow (Yellow); Glucose, Dipstick Normal (Normal); Ketone-Dipstick 5 mg/dl (Negative); Leukocyte Esterase-Dipstick 100 /ul (Negative); Nitrite-Dipstick Negative (Negative); Occult Blood-Urine 250 /ul (Negative); Protein-Dipstick 30 mg/dl (Negative); Specific Gravity, Urine 1.015 (1.002-1.030); Urine Bilirubin Dipstick Negative (Negative); Urine Clarity Cloudy (Clear); Urine Urobilinogen 1 mg/dl (Normal)
--- NOTE | 2025-01-15 17:34 | US_ITS ---
PROCEDURE: TRANSVAGINAL NON- REASON FOR EXAM: 29 y/o F, vaginal bleeding, s/p miscarriage last week. COMPARISON: None. TECHNIQUE: Transvaginal pelvic ultrasound. Color and spectral doppler analysis of the ovaries. FINDINGS: Measurements: Uterus: 9.0 x 5.7 x 4.6 cm with a volume of 123 mL Endometrial Thickness: 1.1 cm Right Ovary: Nonvisualized. Left Ovary: Nonvisualized. Uterus: Anteverted. Normal contour and myometrial echotexture. Endometrium: Normal echotexture. Other adnexal findings: None. Cul-de-sac: Minimal free fluid in the pelvis within normal limits. No tenderness. DOPPLER: Color Doppler: Normal color flow doppler signal at both ovaries. Spectral Doppler: Normal arterial inflow and venous outflow signal at both ovaries. US/Transvaginal Non- IMPRESSION: NORMAL TRANSVAGINAL PELVIC ULTRASOUND WITH DOPPLER. Reading Location: [id number]
[2025-01-15 17:39] LABS: ALB/GLOB Ratio 1.4 RATIO (0.9-2.4); AST(SGOT) 18 U/L (<=31); Alanine Aminotransfer ALT/SGPT 22 U/L (<=34); Alkaline Phosphatase 71 U/L (35-104); Anion Gap 11 (5-15); BUN 11 mg/dL (4-19); BUN/Creat Ratio 17.3 RATIO (10-20); Calcium 8.7 mg/dL (7.6-11.0); Carbon Dioxide 22.5 mmol/L (22.0-29.0); Chloride 104 mmol/L (96-108); Creatinine, Serum 0.6 mg/dL (0.6-1.0); EST Glomerular Filtration Rate 123 (>60); Estimated Creatinine Clearance 226.94 ml/min; Globulin 2.9 g/dL (2.2-4.2); Glucose 98 mg/dL (70-99); Lipase 24 U/L (13-75); Potassium 4.2 mmol/L (3.3-5.1); Protein, Total 6.8 g/dL (5.9-8.4); Sodium Level 137 mmol/L (133-145); Total Bilirubin 0.24 mg/dL (0.00-1.30)
[2025-01-15 17:40] LABS: Bacteria 1+ /hpf (None Seen); Mucous, Urine 1+ /hpf (<or=2+); Red Blood Cells-Urine > 100 SEEN /hpf (0-5); Squamous Epithelial Cells - UA 5-10 SEEN /hpf (5-10); White Blood Cells 25-50 SEEN /hpf (0-5)
--- NOTE | 2025-01-15 17:41 | ED.VIS.FEGU ---
HPI HPI - Female History of Present Illness Chief Complaint: Vag Bld, Preg Narrative Narrative: Chief complaint and HPI: Vaginal bleeding in first trimester . 29-year-old female who is A3 presents for evaluation of vaginal bleeding in first trimester . Patient states that she found out she was about a week and a half ago. She states at that time she was 5 weeks by last menstrual period. She states last she developed vaginal bleeding. Suspected miscarriage given her history. Patient follows with [facility] Dr. Srinivasan Sanon. Patient since the vaginal bleeding she has been having pelvic abdominal pain. She states that her bleeding was improving until today where she had increased clots. States she has seen tissue. She endorses some lightheadedness. Denies any nausea or vomiting. Denies any fever or chills. On chart review patient had a beta-hCG on 01/13 that was 239. Beta-hCG earlier this morning was 112. She has yet to have an ultrasound. Patient is not on blood thinners. Denies any dysuria or vaginal discharge. Review of systems: See HPI Medications: As listed on the chart Allergies: As listed on the chart PFSH: Per chart Vital signs: As listed on the chart. Reviewed. Physical exam: Gen: A&O x3, NAD Head: Normocephalic, atraumatic Eyes: No sclera icterus, conjunctiva clear ENT: Moist mucous membranes Neck: Trachea midline, No JVD CV: RRR, no murmurs, no peripheral edema Resp: Lungs CTA BL, no w/r/c GI: Abd soft, non-distended, non-tender, no r/r/g Pelvic: Normal external genitalia. No lesions, masses, or rashes appreciated. No vaginal discharge noted. Blood pooling in the vaginal vault. No tissue visualized. Unable to observe cervix due to blood pooling as well as body habitus. Exam not significantly painful. Musc: Full ROM, no deformity Skin: Warm, dry Neuro: Alert, oriented, grossly intact, sensation intact Psych: Cooperative, appropriate mood and affect [facility] Medical History (Updated 01/15/25 @ 20:[address] Jersey Michlele, DO) Wears glasses Fatty liver Excessive bleeding History of IBS Gastric reflux Shortness of breath on exertion History of Holter monitoring Bilateral carpal tunnel syndrome Alcohol abuse Anxiety Depression GERD (gastroesophageal reflux disease) Smoker Asthma Irregular heart beat Migraines Home Medications ?Medication ?Instructions ?Recorded ?Last Taken ?Type fluoxetine 20 mg capsule 20 mg PO BID Check with primary 05/30/21 05/28/21 History doctor omeprazole 40 mg capsule,delayed 40 mg PO DAILY 05/30/21 05/29/21 History release albuterol sulfate 90 mcg/actuation 2 - 4 puff inhalation Q4H PRN 05/31/21 Unknown Rx aerosol inhaler shortness of breath or wheezing #8.5 grams hydroxyzine HCl 50 mg tablet 50 mg PO TID PRN anxiety 09/19/24 Unknown History cephalexin 500 mg capsule 500 mg PO Q6H 7 days #28 caps 01/15/25 Unknown Rx Allergy/AdvReac Type Severity Reaction Status Date / Time escitalopram (From The History [employer]) AdvReac unknown Verified 01/15/25 15:00 Family History Mother CVA (cerebral vascular accident) Liver disease Myocardial infarction x5 Diabetes Retinal detachment Hypertrophic cardiomyopathy Grandmother Breast cancer and great-grandmother Father Liver disease Diabetes Other Heart disease Surgical History S/P D&C (status post dilation and curettage) Social History adopted: No household members: spouse housing: apartment current occupational status: employed current occupation: [email or web address] current occupational exposures/hazards: No pets and animals: No history of recent travel: No sexually active: Yes Smoking Status: Current every day smoker tobacco type: cigarettes Tobacco: How many years used: 8 alcohol intake: never substance use type: former substance user and marijuana well-balanced diet: about half the time caffeine: Yes Type: carbonated beverages and coffee eating out: 1-3 times/week during the past year weight has: remained stable what type of physical activity do you participate in: walking and bicycling frequency: 1-2 times per week duration: 30-45 minutes/day mireya/jain: Sikh seatbelt use: sometimes do you feel safe at home: Yes 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 history: -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 Physical Exam Const Vital Signs: 01/15/25 14:57 01/15/25 17:00 01/15/25 19:00 Temperature 96.8 F L Temperature Source Temporal Pulse Rate 113 H 66 70 Respiratory Rate 16 14 Blood Pressure 160/90 H 153/86 H 152/89 H Blood Pressure Mean 113 108 110 Pulse Ox 99 98 Oxygen Delivery Method Room Air 01/15/25 20:24 Temperature 98.5 F Temperature Source Pulse Rate 70 Respiratory Rate 16 Blood Pressure 133/67 H Blood Pressure Mean 89 Pulse Ox 96 Oxygen Delivery Method MDM MDM MDM Narrative Medical decision making narrative: 29-year-old female who is A3 presents for evaluation of vaginal bleeding in first trimester . Patient has been actively miscarriage he for several days. Bleeding increased today which is why she presents. Associated symptom is pelvic cramping. See physical exam. Differential diagnosis includes but is not limited to complete , inedible , retained products, ectopic , anemia, UTI. Chart review, I was able to see the patient's beta-hCG from earlier today. We will get another 1 to see if this is already downtrending. Patient had protocol labs drawn in triage. Agree with the labs are ordered. Given that patient has not had an official transvaginal ultrasound will obtain 1 to rule out ectopic with her bleeding and pain. Tylenol and NS bolus ordered. CBC with mild leukocytosis 11.9. No anemia. No thrombocytopenia. CMP relatively unremarkable. Lipase unremarkable.Beta-hCG 106. This is already downtrending from earlier today at 112. UA is positive for protein, ketones, blood, leuk esterase and bacteria. Positive for UTI. Keflex ordered. Urine culture sent. Urine is also consistent with mild dehydration. Transvaginal ultrasound without IUP. Right and left ovary not visualized. Given her downtrending beta hCG as well as transvaginal ultrasound, suspect completed . I called Dr. Srinivasan Sanon, patient's [facility] and she was updated on the patient's workup. She agrees likely complete . Patient needs to follow-up in her office next week to have repeat beta hCGs to make sure that they resolved to 0. They will offer emotional support. She did recommend me giving Cytotec 800 mg prior to discharge. Recommendation was to rest with legs elevated to help bleeding. On reevaluation, patient's lightheadedness has improved. Her cramping has improved. Patient and updated of the results. They were offered emotional support. Patient discharged home with a prescription for Keflex for UTI. Follow-up with [facility]. Return precautions explained. She confirmed understanding the plan. Impression: 1. Complete 2. Mild dehydration 3. UTI Lab Data Labs: Laboratory Results - last 24 hr 01/15/25 01/15/25 01/15/25 15:26 16:55 17:02 WBC 11.9 H RBC 4.42 Hgb 12.8 Hct 39.0 MCV 88.2 MCH 29.0 MCHC 32.8 RDW Std Deviation 42.5 RDW Coeff of Cruz 13.1 Plt Count 263 MPV 11.5 Immature Gran % (Auto) 0.500 Neut % (Auto) 64.1 Lymph % (Auto) 25.1 [place] % (Auto) 6.1 Eos % (Auto) 3.6 Baso % (Auto) 0.6 Absolute Neuts (auto) 7.6 Absolute Lymphs (auto) 2.99 Nucleated RBC % 0 Sodium Cancelled 137 Potassium Cancelled 4.2 Chloride Direct Cancelled 104 Carbon Dioxide Cancelled 22.5 Anion Gap Cancelled 11 BUN Cancelled 11 Creatinine Cancelled 0.6 Estim Creat Clear Calc Cancelled 226.94 Est GFR (MDRD) Non-Af Cancelled 123 BUN/Creatinine Ratio Cancelled 17.3 Glucose Cancelled 98 Calcium Cancelled 8.7 Total Bilirubin Cancelled 0.24 AST Cancelled 18 ALT Cancelled 22 Alkaline Phosphatase Cancelled 71 Total Protein Cancelled 6.8 Albumin Cancelled 4.0 Globulin Cancelled 2.9 Albumin/Globulin Ratio Cancelled 1.4 Lipase Cancelled 24 HCG, Quant 112 H Urine Color Yellow Urine Clarity Cloudy Urine pH 7.0 Ur Specific [place] 1.015 Urine Protein 30 H Urine Glucose (UA) Normal Urine Ketones 5 H Urine Occult Blood 250 H Urine Nitrite Negative Urine Bilirubin Negative Urine Urobilinogen 1 H Ur Leukocyte Esterase 100 H Urine RBC > 100 SEEN Urine WBC 25-50 SEEN Ur Squamous Epith Cells 5-10 SEEN Urine Bacteria 1+ Urine Mucus 1+ 01/15/25 18:00 WBC RBC Hgb Hct MCV MCH MCHC RDW Std Deviation RDW Coeff of Cruz Plt Count MPV Immature Gran % (Auto) Neut % (Auto) Lymph % (Auto) [place] % (Auto) Eos % (Auto) Baso % (Auto) Absolute Neuts (auto) Absolute Lymphs (auto) Nucleated RBC % Sodium Potassium Chloride Direct Carbon Dioxide Anion Gap BUN Creatinine Estim Creat Clear Calc Est GFR (MDRD) Non-Af BUN/Creatinine Ratio Glucose Calcium Total Bilirubin AST ALT Alkaline Phosphatase Total Protein Albumin Globulin Albumin/Globulin Ratio Lipase HCG, Quant 106 H Urine Color Urine Clarity Urine pH Ur Specific [place] Urine Protein Urine Glucose (UA) Urine Ketones Urine Occult Blood Urine Nitrite Urine Bilirubin Urine Urobilinogen Ur Leukocyte Esterase Urine RBC Urine WBC Ur Squamous Epith Cells Urine Bacteria Urine Mucus Radiography Diagnostic Testing: Clinical Impression(s) from Imaging Studies Transvaginal US 01/15/25 17:34 IMPRESSION: NORMAL TRANSVAGINAL PELVIC ULTRASOUND WITH DOPPLER. Reading Location: [facility] Discharge Plan Triage Chief Complaint: Vag Bld, Preg ED Provider: Jersey Michelle Dx/Rx/DC Orders Clinical Impression: Complete miscarriage Instructions: Understanding Miscarriage: Emotions, Miscarriage Dc Prescriptions: New cephalexin 500 mg capsule 500 mg PO Q6H 7 Days Qty: 28 0RF No Action hydroxyzine HCl 50 mg tablet 50 mg PO TID PRN (Reason: anxiety) fluoxetine 20 mg Capsule 20 mg PO BID omeprazole 40 mg Capsule,Delayed Release(Dr/Ec) 40 mg PO DAILY albuterol sulfate 90 mcg/actuation HFA aerosol inhaler 2 - 4 puff inhalation Q4H PRN (Reason: shortness of breath or wheezing) Qty: 8.5 0RF Stand Alone Forms: ED Work / School Excuse Primary Care Provider: Wicho Jackson Referrals: Wicho Jackson MD [Primary Care Provider] - Alicia Gutierrez MD [Med Staff - Active Staff] - 3-5 Days Activity Restrictions/Additional Instructions: Follow-up with your [facility]. Call tomorrow to make an appointment to be seen in the office next week. Drink plenty of fluids. Rest with legs elevated to minimize bleeding. Take Keflex for your urinary tract infection. Return back to the ED if symptoms change or worsen. Print Language: Macedonian Disposition Disposition: Home, Self Care Discharge Date/Time: 01/15/25 20:30
[2025-01-15] MEDS: 0.9% Normal Saline (1000mL) 1,000 ML 999 ML IV (18:08)
--- NOTE | 2025-01-15 18:33 | ED.RN ---
Assisted Dr Lr with pelvic exam.
[2025-01-15 18:35] LABS: hCG Titer Quant., Serum 106 mIU/mL (<9 non-preg)
[2025-01-15 19:00] VITALS: BP 152/89; PULSE 70; RESP 14; O2SAT 98
[2025-01-15] MEDS: Acetaminophen 500 MG Tablet 1000 MG PO (19:42)
[2025-01-15] MEDS: miSOPROStol 200 MCG Tablet 800 MCG PO (20:21)
[2025-01-15] MEDS: Cephalexin 250 MG Capsule 500 MG PO (20:21)
[2025-01-15 20:24] VITALS: BP 133/67; PULSE 70; RESP 16; TEMP 36.9; O2SAT 96
== END 2025-01-15 20:30 | disposition home or self-care (01) ==
PROVIDERS: Emergency Provider Surgery; PCP Family Medicine; Visit Provider Surgery
DX: O03.9 Complete or unspecified spontaneous abortion without complication (principal); Z3A.01 Less than 8 weeks gestation of pregnancy; O23.41 Unspecified infection of urinary tract in pregnancy, first trimester; O99.331 Smoking (tobacco) complicating pregnancy, first trimester; E86.0 Dehydration; O99.281 Endocrine, nutritional and metabolic diseases complicating pregnancy, first trimester; O99.611 Diseases of the digestive system complicating pregnancy, first trimester; K21.9 Gastro-esophageal reflux disease without esophagitis; O99.341 Other mental disorders complicating pregnancy, first trimester; F41.9 Anxiety disorder, unspecified; F32.A Depression, unspecified; Z79.899 Other long term (current) drug therapy
CPT/HCPCS: 76830; 80053; 81001; 83690; 84702; 85025; 87086; 87088; 96360; 96361; 99284; A4216

== ENCOUNTER 2025-02-28 06:41 | Day surgery (SDC) | payer OTHER, SELFPAY ==
--- NOTE | 2025-01-01 12:25 | PAT.ANE_ITS ---
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 When Was Last Pacemaker Check QUESTION #4 FULL TEXT: You/Your Family Experience fever (hyperthermia) with Anesthesia Last Oral Intake Last Oral intake: Last Oral Intake NPO since Meds taken in AM with sips of water? 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 Female Yes 01/01/25 10:27 HX of Motion Sickness Yes 01/01/25 10:27 HX of N/V After Surgery No 01/01/25 10:27 Non-Smoker No 01/01/25 10:27 Duration of Surgery greater Yes 01/01/25 10:27 than 60 minutes Number of Risk Factors 3 01/01/25 10:27 PONV Score Moderate Risk 01/01/25 10:27 Height & Weight Height & Weight: Anesthesia: Height & Weight Height 5 ft 7 in 09/19/24 15:27 Respiratory Assessment Respiratory Assessment - truck crane operator helper: Respiratory Tract Infection Hx - 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 Has anyone observed you stop No 01/01/25 10:27 breathing during sleep? STOP Results Negative 01/01/25 10:27 QUESTION #5 FULL TEXT : Do you snore loudly (louder than talking or can be heard through closed doors)? 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 Specify any problems Hx of Preganancy in last 3 No 01/01/25 10:27 Months Nurse Filling Out Transfusion VCHRISTIN 01/01/25 10:27 & Questions: Date: 01/01/25 01/01/25 10:27 Time: 10:27 01/01/25 10:27 Patient unable to answer at this time (ie. 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: /Reproductive Hx- truck crane operator helper Hx Now No 01/01/25 10:27 Gestational Age (in weeks): EDC: Hx Hx Para Hx Section SAB No 01/01/25 10:27 [facility] Medical History (Updated 01/01/25 @ 10:26 by Cierra Lyle) Wears glasses Fatty liver Excessive bleeding History of IBS Gastric reflux Shortness of breath on exertion History of Holter monitoring Bilateral carpal tunnel syndrome Alcohol abuse Anxiety Depression GERD (gastroesophageal reflux disease) Smoker Asthma Irregular heart beat Migraines Home Medications ?Medication ?Instructions ?Recorded ?Last Taken ?Type fluoxetine 20 mg capsule 20 mg PO BID Check with prim shyanne 05/30/21 05/28/21 History doctor omeprazole 40 mg capsule,delayed 40 mg PO DAILY 05/29/21 History release albuterol sulfate 90 mcg/actuation 2 - 4 puff inhalati on Q4H PRN 05/31/21 Unknown Rx aerosol inhaler shortness of breath or wheez ing #8.5 grams hydroxyzine HCl 50 mg tablet 50 mg PO TID PRN anxiety 09/19/24 Unknown History Allergy/AdvReac Type Severity Reaction Status Date / Time escitalopram (From Lexapro) AdvReac unknown Verified 01/01/25 10:20 Family History Mother CVA (cerebral vascular accident) Liver disease Myocardial infarction x5 Diabetes Retinal detachment Hypertrophic cardiomyopathy Grandmother Breast cancer and great-grandmother Father Liver disease Diabetes Other Heart disease Surgical History S/P D&C (status post dilation and curettage) Social History adopted: No household members: spouse housing: apartment current occupational status: employed current occupation: [employer] current occupational exposures/hazards: No pets and animals: No history of recent travel: No sexually active: Yes Smoking Status: Current every day smoker tobacco type: cigarettes Tobacco: How many years used: 8 alcohol intake: never substance use type: former substance user and marijuana well-balanced diet: about half the time caffeine: Yes Type: carbonated beverages and coffee eating out: 1-3 times/week during the past year weight has: remained stable what type of physical activity do you participate in: walking and bicycling frequency: 1-2 times per week duration: 30-45 minutes/day mireya/cheondoism: Spiritism seatbelt use: sometimes do you feel safe at home: Yes 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
[2025-02-28] VITALS (9 sets, daily range): BP systolic 142–159; BP diastolic 56–85; PULSE 75–90; RESP 16; TEMP 36.3–36.5; O2SAT 94–98; BMI 56.4
--- NOTE | 2025-02-28 06:53 | HP.PCM_ITS ---
HPI - General HPI Narrative SCARLETT MANCERA, is a 29 F who presents for bilateral endoscopic carpal tunnel release. No changes to history and physical exam. Bilateral wrists marked. Risks alternatives benefits postoperative counseling and narcotic counseling given. The patient understands wished to proceed no further questions. MR#: [id number] Acct: [id number] Name: SCARLETT MANCERA Rep #: [id number] : 1995 Provider: Dr. Jose Redding MD Age/Sex: 28/F Location: [facility] [place].[facility] Status: Signed Intake Vital Signs 09/19/2415:27 Height 5 ft 7 in Weight: 325 lb BMI 50.8 Intake Visit Reasons: BL WRISTS Chief Complaint: EMG review Accompanied by: Self Allergies escitalopram (From [email or web address]) Adverse Reaction (Verified 11/18/24 15:48) unknown Medications ?Medication ?Instructions ?Recorded ?Confirmed ?Type fluoxetine 20 mg capsule 20 mg PO BID Check with primary 05/30/21 11/18/24 History doctor omeprazole 40 mg capsule,delayed 40 mg PO BID Check with primary 05/30/21 11/18/24 History release doctor albuterol sulfate 90 mcg/actuation 2 - 4 puff inhalation Q4H PRN 05/31/21 11/18/24 Rx aerosol inhaler shortness of breath or wheezing #8.5 grams hydroxyzine HCl 50 mg tablet 50 mg PO TID PRN 09/19/24 11/18/24 History PFSH Medical History Bilateral carpal tunnel syndrome Alcohol abuse Anxiety Depression GERD (gastroesophageal reflux disease) Smoker Asthma Irregular heart beat Migraines Surgical History S/P D&C (status post dilation and curettage) Family History Mother CVA (cerebral vascular accident) Liver disease Myocardial infarction x5 Diabetes Retinal detachment Hypertrophic cardiomyopathyGrandmother Breast cancer and great-grandmother Father Liver disease DiabetesOther Heart disease Social History adopted: No household members: spouse housing: apartment current occupational status: employed current occupation: [employer] current occupational exposures/hazards: No pets and animals: No history of recent travel: No sexually active: Yes Smoking Status: Current every day smoker tobacco type: cigarettes Tobacco: How many years used: 8 alcohol intake: never substance use type: former substance user and marijuana well-balanced diet: about half the time caffeine: Yes Type: carbonated beverages and coffee eating out: 1-3 times/week during the past year weight has: remained stable what type of physical activity do you participate in: walking and bicycling frequency: 1-2 times per week duration: 30-45 minutes/day mireya/amish: Zoroastrian seatbelt use: sometimes do you feel safe at home: Yes 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 history: -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 Jose Redding MD 11/18/24 1052. Part of today?s visit was documented by [ ], acting as scribe. SCARLETT MANCERA is a 28 year old F here today for FU bilat NCS for carpal tunnel syndrome. Both hands still going numb worse on the left side. 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 Has been trying night splints without improvement. Supplemental Info [facility]Ne[facility] [address] [place] [address] MR#: [id number] Acct: [id number] Name: SCARLETT MANCERA Rep #: [id number] : 1995 28 From: Long Barahona MD Referring Dr: Jose Redding MD Status: REG CLI Location: PSN Date: 10/23/24 Sex: F C NCS and/or EMG Patient Report Ordering Doctor: Jose Redding DATE OF SERVICE: 10/23/24 Scarlett presents with complaints of numbness and tingling in both hands. Symptoms are worse on the left side. Electrodiagnostic findings: Left median motor nerve demonstrates prolonged distal latency with normal amplitude and reduced conduction velocity. Right median motor nerve demonstrates normal distal latency with normal amplitude and conduction velocity. Ulnar motor response within normal limits bilaterally. Normal median and ulnar F?waves. Borderline prolonged median sensory latency at the wrist bilaterally. Absent right median palmar response. Normal ulnar and radial sensory responses. Needle EMG testing was performed upper limbs. All muscles tested showed no evidence of denervation with normal motor units potentials Electrodiagnostic impression: This is an abnormal study 1. Electrodiagnostic findings suggestive of bilateral median mononeuropathy. This consistent with a moderate left carpal tunnel syndrome and a mild right carpal tunnel syndrome 2. No electrodiagnostic evidence is noted for cervical radiculopathy Multi Select Codes Neurology Neurology Interp Codes: 43323-89 Musc test done w/n test comp (interp) (2) and 22203-08 Nrv cndj test 11-12 studies (interp) Coding Level of Care Code Off vis,est,level 4 Diagnoses Bilateral carpal tunnel syndrome G56.03 Assessment and Plan Assessment and Plan (1) Bilateral carpal tunnel syndrome: Status: Acute Plan: 28-year-old female bilateral carpal tunnel syndrome. NCS shows findings suggestive of bilateral median mononeuropathy. This consistent with a moderate left carpal tunnel syndrome and a mild right carpal tunnel syndrome. We again discussed the pros and cons risks and benefits of different forms of treatment open versus endoscopic carpal tunnel release. Possibly quicker return to function less pain with endoscopic but potentially higher rates of incomplete release. The patient understands and wished to go ahead with bilateral endoscopic carpal tunnel release on the consent for surgery they understood well increase the risks of surgery with 1 pack-a-day smoking and I encouraged the patient to quit or cut back that can increase the risk of infection or other complications they understood no further questions. Pros and cons risks and benefits were discussed with the patient including but not limited to infection, pain, stiffness, bleeding, damage to surrounding structures, neurovascular injury, recurrence or retear, failure or wear of hardware or fixation, instability, fracture, deep vein thrombosis and pulmonary embolism, anesthetic risks, , patient dissatisfaction, need for further surgery and other risks. Patient understood and wished to proceed with surgery, and signed the informed consent documentation. Ortho Exam General General: Yes no acute distress Neurologic: Yes alert and Yes oriented x3 Psychologic: Yes reasonable and appropriate [facility], [facility] Medical History (Updated 01/15/25 @ 20:[address] Jersey Michelle, DO) Wears glasses Fatty liver Excessive bleeding History of IBS Gastric reflux Shortness of breath on exertion History of Holter monitoring Bilateral carpal tunnel syndrome Alcohol abuse Anxiety Depression GERD (gastroesophageal reflux disease) Smoker Asthma Irregular heart beat Migraines Home Medications ?Medication ?Instructions ?Recorded ?Last Taken ?Type fluoxetine 20 mg capsule 20 mg PO BID Check with prim shyanne 05/30/21 05/28/21 History doctor omeprazole 40 mg capsule,delayed 40 mg PO DAILY 05/29/21 History release albuterol sulfate 90 mcg/actuation 2 - 4 puff inhalati on Q4H PRN 05/31/21 Unknown Rx aerosol inhaler shortness of breath or wheez ing #8.5 grams hydroxyzine HCl 50 mg tablet 50 mg PO TID PRN anxiety 09/19/24 Unknown History Allergy/AdvReac Type Severity Reaction Status Date / Time escitalopram (From Lexapro) AdvReac unknown Verified 02/19/25 10:52 Family History Mother CVA (cerebral vascular accident) Liver disease Myocardial infarction x5 Diabetes Retinal detachment Hypertrophic cardiomyopathy Grandmother Breast cancer and great-grandmother Father Liver disease Diabetes Other Heart disease Surgical History S/P D&C (status post dilation and curettage) Social History adopted: No household members: spouse housing: apartment current occupational status: employed current occupation: [employer] current occupational exposures/hazards: No pets and animals: No history of recent travel: No sexually active: Yes Smoking Status: Current every day smoker tobacco type: cigarettes Tobacco: How many years used: 8 alcohol intake: never substance use type: former substance user and marijuana well-balanced diet: about half the time caffeine: Yes Type: carbonated beverages and coffee eating out: 1-3 times/week during the past year weight has: remained stable what type of physical activity do you participate in: walking and bicycling frequency: 1-2 times per week duration: 30-45 minutes/day mireya/amish: Zoroastrian seatbelt use: sometimes do you feel safe at home: Yes 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 history: -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
[2025-02-28 07:06] LABS: Internal QC Validated? YES +Cl - CLEAR BKGD; Pregnancy, Urine Negative Negative
--- NOTE | 2025-02-28 07:11 | PRE.ANES_ITS ---
ASA Classification* ASA Classification ASA Classification: 3 Assessment & Plan Anesthesia* Anesthesia Assessment Anesthesia Assessment: Discussed sedation and/or anesthesia options, risks, benefits, and alternatives with patient/parents/legal guardian/POA. Questions invited. The patient/parents/legal guardian/POA seems to understand and agrees to proceed with anesthesia plan. Reviewed the physical assessment, medical history, allergy history and patient home medications list prior to surgery/procedure/anesthetic and documented any changes. Performed airway and anesthesia risk assessments. Anesthesia Type Anesthesia Type: MAC Anesthesia Focused Assessment* Airway Assessment Mouth opens: >3 cm Mallampati Score: II Focused Labs Anesthesia Preop lab: CBC WBC 11.9 K/mm3 (4.4-11.0) H 01/15/25 15: 5 RBC 4.42 M/mm3 (4.2-5.4) 01/15/25 15:01/15/25 Hgb 12.8 g/dL (12.0-15.0) 01/15/25 15:26 01/15/25 Hct 39.0 % (37-47) 01/15/25 15:26 01/15/25 Plt Count 263 K/mm3 (150-450) 01/15/25 15:26 01/15/25 CHEMISTRY Potassium 4.2 mmol/L (3.3-5.1) 01/15/25 17:02 01/15/25 Sodium 137 mmol/L (133-145) 01/15/25 17:02 01/15/25 Magnesium 2.3 mg/dL (1.6-2.6) 07/17/24 16:56 07/17/24 BUN 11 mg/dL (4-19) 01/15/25 17:02 01/15/25 Creatinine 0.6 mg/dL (0.6-1.0) 01/15/25 17:02 01/15/25 Glucose 98 mg/dL (70-99) 01/15/25 17:02 01/15/25 TSH 3.780 uIU/mL (0.358-3.740) H 07/17/24 16:56 COAG HCG, Quant 106 mIU/mL (<9 non-preg) H 01/15/25 18:00 12/22 05/14 Urine Test Negative Negative 02/28/25 06:55 02/28/25 Pre-Assessment Diagnosis/Proposed Procedure Planned Operative Procedure(s): (B) Bilateral Endoscopic Carpal Tunnel Release Anesthesia History 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 When Was Last Pacemaker Check QUESTION #4 FULL TEXT: You/Your Family Experience fever (hyperthermia) with Anesthesia Last Oral Intake Last Oral intake: Last Oral Intake NPO since Meds taken in AM with sips of water? 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 - atmospheric physics professor: PONV - atmospheric physics professor Female Yes 02/19/25 10:54 HX of Motion Sickness Yes 02/19/25 10:54 HX of N/V After Surgery No 02/19/25 10:54 Non-Smoker No 02/19/25 10:54 Duration of Surgery greater Yes 02/19/25 10:54 than 60 minutes Number of Risk Factors 3 02/19/25 10:54 PONV Score Moderate Risk 02/19/25 10:54 Height & Weight Height & Weight: Anesthesia: Height & Weight Height 5 ft 7 in 02/27/25 09:45 Weight: 147.418 kg 02/27/25 09:45 Respiratory Assessment Respiratory Assessment - atmospheric physics professor: Respiratory Tract Infection Hx - atmospheric physics professor Hx Respiratory Tract Infection No 02/19/25 10:54 STOP Sleep Apnea STOP Sleep Apnea - atmospheric physics professor: STOP Sleep Apnea - atmospheric physics professor Hx Hypertension No 02/19/25 10:54 Hx Sleep Apnea No 02/19/25 10:54 CPAP BIPAP Do you snore loudly (louder No 02/19/25 10:54 than talking or can be heard Do you often feel tired/ No 02/19/25 10:54 fatigued/ sleepy during daytime? Has anyone observed you stop No 02/19/25 10:54 breathing during sleep? STOP Results Negative 02/19/25 10:54 QUESTION #5 FULL TEXT : Do you snore loudly (louder than talking or can be heard through closed doors)? 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 Specify any problems Hx of Preganancy in last 3 Yes 02/19/25 10:54 Months Nurse Filling Out Transfusion NBUCHER 02/19/25 10:54 & Questions: Date: 02/19/25 02/19/25 10:54 Time: 10:54 02/19/25 10:54 Patient unable to answer at this time (ie. confused, unrespo /Reproduction History /Reproductive History - atmospheric physics professor: /Reproductive Hx- atmospheric physics professor Hx Now No 01/01/25 10:27 Gestational Age (in weeks): EDC: Hx Hx Para Hx Section SAB No 02/19/25 10:54 Active Medications Active Medications: Current Medications Generic Name Dose Route Start Last Admin Trade Name Freq PRN Reason Stop Dose Admin Cefazolin Sodium 3 gm/ N/A 30 mls @ 600 mls/hr 02/28/25 08:15 IV 02/28/25 08:17 X1 ONE [facility] Medical History Wears glasses Fatty liver Excessive bleeding History of IBS Gastric reflux Shortness of breath on exertion History of Holter monitoring Bilateral carpal tunnel syndrome Alcohol abuse Anxiety Depression GERD (gastroesophageal reflux disease) Smoker Asthma Irregular heart beat Migraines Home Medications ?Medication ?Instructions ?Recorded ?Last Taken ?Type fluoxetine 20 mg capsule 20 mg PO BID Check with prim shyanne 05/30/21 05/28/21 History doctor omeprazole 40 mg capsule,delayed 40 mg PO DAILY 05/29/21 History release albuterol sulfate 90 mcg/actuation 2 - 4 puff inhalati on Q4H PRN 05/31/21 Unknown Rx aerosol inhaler shortness of breath or wheez ing #8.5 grams hydroxyzine HCl 50 mg tablet 50 mg PO TID PRN anxiety 09/19/24 Unknown History Allergy/AdvReac Type Severity Reaction Status Date / Time escitalopram (From Lexapro) AdvReac unknown Verified 02/19/25 10:52 Family History Mother CVA (cerebral vascular accident) Liver disease Myocardial infarction x5 Diabetes Retinal detachment Hypertrophic cardiomyopathy Grandmother Breast cancer and great-grandmother Father Liver disease Diabetes Other Heart disease Surgical History S/P D&C (status post dilation and curettage) Social History adopted: No household members: spouse housing: apartment current occupational status: employed current occupation: [employer] current occupational exposures/hazards: No pets and animals: No history of recent travel: No sexually active: Yes Smoking Status: Current every day smoker tobacco type: cigarettes Tobacco: How many years used: 8 alcohol intake: never substance use type: former substance user and marijuana well-balanced diet: about half the time caffeine: Yes Type: carbonated beverages and coffee eating out: 1-3 times/week during the past year weight has: remained stable what type of physical activity do you participate in: walking and bicycling frequency: 1-2 times per week duration: 30-45 minutes/day mireya/anabaptism: Catholic seatbelt use: sometimes do you feel safe at home: Yes 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
[2025-02-28] MEDS: Cefazolin 3 GM in Syringe IV (08:20)
[2025-02-28] MEDS: Bupivacaine 0.25% 30 ML Vial (08:34)
--- NOTE | 2025-02-28 09:04 | OP.PCM_ITS ---
Problems Associated Problem List Diagnoses (1) Bilateral carpal tunnel syndrome: Procedures Musculoskeletal [id number]: Other Procedure See Report Operative Report (Standard) Operative Information Date of Procedure: 02/28/25 Pre-Operative Diagnosis: bilateral carpal tunnel syndrome Post-Operative Diagnosis: same Surgery/Procedure Performed: bilateral endoscopic carpal tunnel release multiple needle stitcher: No Type of Anesthesia: Local RN Documented Start/Stop Times: Operation Date: 02/28/25 08:15 Case Time Into Pre-Op 02/28/25 06:54 Out of Pre-Op 02/28/25 08:04 Anesthesia Start 02/28/25 08:07 Into Room 02/28/25 08:07 Procedure Start 02/28/25 08:34 Procedure End 02/28/25 09:02 Procedure Start Time: 08:34 Procedure Stop Time: 09:02 Select all DRAINS/GRAFTS/IMPLANTS that apply: None Estimated Blood Loss: 10 Specimen collected: No Description of surgery: Patient brought to the operating room theater. Placed upon on the table. 3g iv ancef before the start of the case. Local/MAC induced by the anesthetic team. Patient placed supine on the table all bony prominences padded. SCDs on the legs. Hand table used both sides. Tourniquet applied properly padded to both upper extremity. Upper extremity prepped and draped in the usual sterile fashion with chlorhexidine-based prep solution allowing over 3 minutes drying time prior to draping. Preoperative timeout performed to confirm the site patient and the surgery. Did the same procedure on both sides. Began by elevating the limb and inflated the tourniquet to 250 mmHg. I used the Arthex center line endoscopic carpal tunnel technique. I made a transverse 2 cm incision in line with the transverse wrist crease.? This was in line with the fourth digit.? I carried the dissection down through skin and subcutaneous tissue achieved meticulous hemostasis. Just ulnar to palmaris tendon.? I incised the antebrachial fascia.? I passed sequential dilators into the carpal tunnel along the radial border of the Guyon's canal aiming for the fourth digit with the hand in extension.? I used a synovial elevator to identify the transverse fibers of the transverse carpal tunnel ligament.? Passed the scope into the carpal tunnel. Once I had identified the full proximal and distal extent of the ligament I fully released the ligament under direct visualization by deploying the blade and slowly withdrawing the scope made sequential passes until I no longer felt tension as well as the entire extent of the ligament was released under direct visualization.? Sounded the tunnel with oakes tenotomy scissors, complete release, no bands. Arthroscope light was more visible through the skin. Release the forearm fascia also. Pictures taken and saved. Wounds thoroughly irrigated.? 3cc 0.25% bupivicaine for local anesthesia (6 total). Tourniquet let down prior to end of the case and meticulous hemostasis achieved.? Thorough irrigation.? ? Incisions closed with 3-0 vicryl and dermabond for skin. ?Then adaptic 4x4 gauze and bridgette wrap loosely wrapped. Patient woken up,? transferred off the operating room table and taken to postanesthetic care unit in stable condition. All sponge needle instrument counts were correct no complications.?Plan for the patient to be discharged home according to day surgery criteria when they are comfortable. Follow-up in the office in 2 days time. Gentle ROM fingers and elbow no heavy lifting or repetitive [place]. cpt 02479 x2 Surgical Findings: as above Complications Complications: No Admit VTE Documentation VTE Present on Admission: No VTE Mechan Device Prophylaxis: SCD's VTE Pharm Prophylaxis ordered?: No Reason prophylaxis not ordered: Treatment Not Indicated
--- NOTE | 2025-02-28 09:07 | EX.PCM.DISCH ---
Discharge Instructions Diet Discharge Diet: No restrictions Activity Discharge Activity: May Shower Ice area for (Minutes): 10 Lifting Restrictions: Gentle ROM fingers and elbow no heavy lifting or repetitive wrist ROM. Keep extremity elevated above heart level: Operative Extremity Dressing / Incision Call your doctor if your incision/area has: Continuous Slow Oozing, Sudden Increased Bleeding, Increased Pain/ Swelling, Increased Redness, Foul Smelling Discharge and Swelling at the incision site Call your doctor if you observe: Fever of 101 or Higher, Coldness, Increased Pain and Numbness or Tingling Change Dressing in: 1 day Cleanse incision/area with: Do not get Incision Wet Follow Up Care Please Follow Up With: Jose Redding MD When: within 2 weeks Test Results: Test results from this visit will be discussed in further detail at your follow-up appointment, if applicable. Discharge Plan Admission Attending Provider: Jose Redding Primary Care Provider: Wicho Jackson Instructions Patient Instructions: Carpal Tunnel Release Surgery Print Language: South African Discharge Orders/Prescriptions Prescriptions: No Action hydroxyzine HCl 50 mg tablet 50 mg PO TID PRN (Reason: anxiety) fluoxetine 20 mg Capsule 20 mg PO BID omeprazole 40 mg Capsule,Delayed Release(Dr/Ec) 40 mg PO DAILY albuterol sulfate 90 mcg/actuation HFA aerosol inhaler 2 - 4 puff inhalation Q4H PRN (Reason: shortness of breath or wheezing) Qty: 8.5 0RF Referrals / Follow Up: Wicho Jackson MD [Primary Care Provider] - Jose Redding MD [Med Staff - Active Staff] - Disposition Disposition (needs filled in before D/C Order can be placed): Home, Self Care
--- NOTE | 2025-02-28 09:17 | PCM.POST.ANE ---
Anesthesia: Postop Eval I Current Vital Signs Temperature: 97.4 F Pulse Rate: 87 Blood Pressure: 148/65 Respiratory Rate: 16 Pulse Ox: 98 Assessment Airway patent: Yes Spontaneous unlabored respirations: Yes nausea: No Vomiting: No Anesthesia Complication: No Fluid Hydration Crystalloid volume administer (ml): 800 Total IV fluid infused: 800 Progress Note Anesthesia document: Postop Eval 1 completed: Yes
[2025-02-28] MEDS: HYDROcodone Bitartrate/Apap 5/325 Tablet PO (09:52)
--- NOTE | 2025-02-28 11:10 | POSTOPAN2_ITS ---
Anesthesia Postop Eval I Sum Postop Eval Completion status Anesthesia document: Postop Eval 1 completed: Yes Anesthesia Postop Eval I Summary Anesthesia Postop Eval I Summary: Anesthesia Postop Eval I: Assessment Summary Airway patent Yes 02/28/25 09:17 [email or web address] Spontaneous unlabored Yes 02/28/25 09:17 [email or web address] respirations Mental status nausea No 02/28/25 09:17 [email or web address] Vomiting No 02/28/25 09:17 [email or web address] Anesthesia Postop Eval I: Fluid Summary Crystalloid volume administer 800 02/28/25 09:17 [email or web address] (ml) Colloids volume administered ( ml) Blood Product volume administered (ml) Total IV fluid infused 800 02/28/25 09:17 [email or web address] Anesthesia Postop Eval I: Summary Notes Anesthesia Complication No 02/28/25 09:17 [email or web address] Anesthesia Complication Comment: Post-operative progress note Anesthesia: Postop Eval II Evaluation Mental status: Awake Pain Level: 0 nausea: No Vomiting: No
--- NOTE | 2025-02-28 11:10 | PCM.POSTANE2 ---
Anesthesia Postop Eval I Sum Postop Eval Completion status Anesthesia document: Postop Eval 1 completed: Yes Anesthesia Postop Eval I Summary Anesthesia Postop Eval I Summary: Anesthesia Postop Eval I: Assessment Summary Airway patent Yes 02/28/25 09:17 ANALYTICAL [email or web address] [email or web address] Spontaneous unlabored Yes 02/28/25 09:17 ANALYTICAL SCIENCES [email or web address] respirations Mental status nausea No 02/28/25 09:17 ANALYTICAL [email or web address] [email or web address] Vomiting No 02/28/25 09:17 ANALYTICAL [email or web address] Anesthesia Postop Eval I: Fluid Summary Crystalloid volume administer 800 02/28/25 09:17 ANALYTICAL [email or web address] [email or web address] (ml) Colloids volume administered ( ml) Blood Product volume administered (ml) Total IV fluid infused 800 02/28/25 09:17 ANALYTICAL [email or web address] [email or web address] Anesthesia Postop Eval I: Summary Notes Anesthesia Complication No 02/28/25 09:17 ANALYTICAL [email or web address] [email or web address] Anesthesia Complication Comment: Post-operative progress note Anesthesia: Postop Eval II Evaluation Mental status: Awake Pain Level: 0 nausea: No Vomiting: No
== END 2025-02-28 10:47 | disposition home or self-care (01) ==
LOC: SDC 06:42 → AC 06:43
PROVIDERS: Anesthesiology; PCP Family Medicine; Referring Provider Orthopaedic Surgery Sports Medicine; Visit Provider Orthopaedic Surgery Sports Medicine
PROC: (CPT 29848; principal; 2025-02-28 08:00)
DX: G56.03 Carpal tunnel syndrome, bilateral upper limbs (principal); F17.210 Nicotine dependence, cigarettes, uncomplicated
CPT/HCPCS: 29848; 01810; 81025; A4216; J2405

== ENCOUNTER 2025-05-13 01:51 | Observation (INO) | payer OTHER, SELFPAY ==
[2025-05-13] VITALS (19 sets, daily range): BP systolic 115–173; BP diastolic 68–98; PULSE 62–100; RESP 16–18; TEMP 36.2–36.9; O2SAT 94–99; BMI 59.3; BMI 58.9
--- NOTE | 2025-05-13 02:37 | ED.VIS.GI ---
HPI HPI - GI History of Present Illness Chief Complaint: Abd Pain Informant: patient Narrative Narrative: 29-year-old female has been having upper abdominal pain radiating to the right low back and right shoulder blade associated with nausea and vomiting for the past 8 hours or so. Started about an hour after eating oatmeal, sausage, egg. States she has had episodes like this before, but never lasted this long or been this severe. This is the first time she has had any of it evaluated. She has had no history of abdominal surgeries in the past. She denies any recent cough or shortness of breath. No fevers or chills or jaundice, and no confusion. No urinary symptoms or hematuria. [facility] Medical History Wears glasses Fatty liver Excessive bleeding History of IBS Gastric reflux Shortness of breath on exertion History of Holter monitoring Bilateral carpal tunnel syndrome Alcohol abuse Anxiety Depression GERD (gastroesophageal reflux disease) Smoker Asthma Irregular heart beat Migraines Home Medications ?Medication ?Instructions ?Recorded ?Last Taken ?Type fluoxetine 20 mg capsule 20 mg PO BID Check with primary 05/30/21 05/28/21 History doctor omeprazole 40 mg capsule,delayed 40 mg PO DAILY 05/30/21 05/29/21 History release albuterol sulfate 90 mcg/actuation 2 - 4 puff inhalation Q4H PRN 05/31/21 Unknown Rx aerosol inhaler shortness of breath or wheezing #8.5 grams hydroxyzine HCl 50 mg tablet 50 mg PO TID PRN anxiety 09/19/24 Unknown History Allergy/AdvReac Type Severity Reaction Status Date / Time escitalopram (From Lexapro) AdvReac unknown Verified 04/11/25 10:59 Family History Mother CVA (cerebral vascular accident) Liver disease Myocardial infarction x5 Diabetes Retinal detachment Hypertrophic cardiomyopathy Grandmother Breast cancer and great-grandmother Father Liver disease Diabetes Other Heart disease Surgical History S/P D&C (status post dilation and curettage) Social History adopted: No household members: spouse housing: apartment current occupational status: employed current occupation: [employer] current occupational exposures/hazards: No pets and animals: No history of recent travel: No sexually active: Yes Smoking Status: Current every day smoker tobacco type: cigarettes Tobacco: How many years used: 8 alcohol intake: never substance use type: former substance user and marijuana well-balanced diet: about half the time caffeine: Yes Type: carbonated beverages and coffee eating out: 1-3 times/week during the past year weight has: remained stable what type of physical activity do you participate in: walking and bicycling frequency: 1-2 times per week duration: 30-45 minutes/day mireya/sikh: Hinduism seatbelt use: sometimes do you feel safe at home: Yes 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 ROS ED Constitutional Constitutional ED: Denies chills or fever(s) Eyes Eyes: Denies change in vision or diplopia ENT ENT ED: Denies rhinorrhea or sore throat Cardiovascular Cardiovascular: Denies chest pain or palpitations Respiratory/Chest Respiratory/Chest: Denies cough or dyspnea Gastrointestinal Gastrointestinal: Reports abdominal pain, nausea and vomiting; Denies diarrhea, hematemesis, hematochezia or melena Genitourinary Genitourinary ED: Denies dysuria or hematuria Musculoskeletal Musculoskeletal: Reports back pain; Denies neck pain Integumentary Denies abscess or rash Neurologic Neurologic: Denies headache(s), paresthesias or weakness Psychiatric Psychiatric: Denies suicidal thoughts EXAM Physical Exam Const Vital Signs: 05/13/25 01:52 05/13/25 03:52 05/13/25 05:00 Temperature 98.4 F 98.3 F Temperature Source Oral Oral Pulse Rate 63 79 78 Respiratory Rate 18 18 16 Blood Pressure 159/80 H 147/98 H 129/74 H Blood Pressure Mean 106 114 92 Pulse Ox 99 99 98 Oxygen Delivery Method Room Air Room Air Room Air 05/13/25 07:00 Temperature Temperature Source Pulse Rate 76 Respiratory Rate 16 Blood Pressure 145/89 H Blood Pressure Mean 107 Pulse Ox 97 Oxygen Delivery Method Room Air Positive well nourished, well developed and obese General Appearance ED: well developed and NAD Nutritional Appearance: obese HEENT Reports moist mucous membranes normocephalic and atraumatic Eyes PERRL and EOMs intact bilaterally Neck full ROM and supple Resp normal respiratory effort and clear to auscultation bilaterally Cardio regular rate, regular rhythm and no murmurs GI non-distended GI Narrative: tender right upper quadrant more so than epigastrium. Negative Costa's. Otherwise nontender. Auscultation: normoactive bowel sounds Palpation: soft Back/Spine no CVA tenderness General Back: other FROM Extremity normal to inspection General Extremety ED: Negative for edema, pulses abnormal or tenderness General Extremity: Negative for edema or pulses abnormal Neuro oriented x3, CN's II-XII intact bilaterally and no sensory deficits noted Sensorium / Orientation: awake and alert Motor Exam: strength 5/5 throughout Psych mental status grossly normal and thought process normal Skin no rashes or lesions noted and no wounds MDM MDM MDM Narrative Medical decision making narrative: Suspicious for biliary colic, would ordinarily order an official ultrasound however she presents after 2 AM when ultrasound is not available. Labs ordered to evaluate for possible early acute cholecystitis, and she was given Zofran and morphine for her symptoms and we did a bedside ultrasound. She was feeling better, and on my screening ultrasound of the gallbladder, she has what appears to be a large stone lodged in the neck. She has a positive sonographic Costa, although she is not in severe pain after the medications. White blood count is slightly elevated at 12.6, her ALT is slightly abnormal at 38 but the rest of her liver enzymes are normal and her lipase is normal. Clinically she is doing well. I discussed with surgery, they recommend getting an official ultrasound when it is available around 0730 this morning, and will see and evaluate in the ED after. Surgery saw the patient after the ultrasound results, which I reviewed and agree with, and plan is for antibiotics which were given in the ED, admission, and surgery later today for early acute cholecystitis. Lab Data Attestation: I reviewed the patient's lab results. Labs: Laboratory Results - last 24 hr 05/13/25 05/13/25 02:00 04:00 WBC 12.6 H RBC 4.64 Hgb 12.8 Hct 39.3 MCV 84.7 MCH 27.6 MCHC 32.6 RDW Std Deviation 42.6 RDW Coeff of Cruz 13.9 Plt Count 339 MPV 11.9 Immature Gran % (Auto) 0.400 Neut % (Auto) 74.8 H Lymph % (Auto) 18.3 L Grundy % (Auto) 3.9 Eos % (Auto) 2.1 Baso % (Auto) 0.5 Absolute Neuts (auto) 9.5 H Absolute Lymphs (auto) 2.31 Nucleated RBC % 0 Sodium 138 Potassium 3.9 Chloride 102 Carbon Dioxide 22.4 Anion Gap 14 BUN 9 Creatinine 0.65 L Estim Creat Clear Calc 212.97 Est GFR (MDRD) Non-Af 122 BUN/Creatinine Ratio 13.4 Glucose 130 H Calcium 9.5 Total Bilirubin 0.23 AST 22 ALT 38 H Alkaline Phosphatase 84 Total Protein 7.2 Albumin 4.1 Globulin 3.1 Albumin/Globulin Ratio 1.3 Lipase 23 Serum , Qual NEGATIVE Urine Color Yellow Urine Clarity Cloudy Urine pH 7.0 Ur Specific [place] 1.015 Urine Protein 15 H Urine Glucose (UA) Normal Urine Ketones Negative Urine Occult Blood Negative Urine Nitrite Negative Urine Bilirubin Negative Urine Urobilinogen Normal Ur Leukocyte Esterase Negative Urine RBC 0 SEEN Urine WBC 0 SEEN Ur Squamous Epith Cells 5-10 SEEN Amorphous Sediment 3+ Urine Bacteria 1+ Urine Mucus 0 SEEN Radiography Diagnostic Testing: Clinical Impression(s) from Imaging Studies Abdomen Ultrasound 05/13/25 04:24 IMPRESSION: Diffuse fatty infiltration of the liver. Hepatomegaly. Solitary gallstone measuring 2 cm x 2.6 cm 1.6 cm. The stone is in the neck of the gallbladder. Reading Location: [id number] Management Discussion w/another healthcare provider: [employer] Department Intern (Surgery Dr. Mckay) Discharge Plan Triage Chief Complaint: Abd Pain ED Provider: Deepak Longo Dx/Rx/DC Orders Clinical Impression: Acute calculous cholecystitis Prescriptions: No Action hydroxyzine HCl 50 mg tablet 50 mg PO TID PRN (Reason: anxiety) fluoxetine 20 mg Capsule 20 mg PO BID omeprazole 40 mg Capsule,Delayed Release(Dr/Ec) 40 mg PO DAILY albuterol sulfate 90 mcg/actuation HFA aerosol inhaler 2 - 4 puff inhalation Q4H PRN (Reason: shortness of breath or wheezing) Qty: 8.5 0RF Primary Care Provider: Wicho Jackson Referrals: Wicho Jackson MD [Primary Care Provider] - Print Language: Lithuanian Disposition Disposition: Acute Care Hospital [facility]
--- OUTSIDE RECORDS SUMMARY | 2025-05-13 02:49 | XMS RPT_ITS | CCD ---
Author Organization [facility] CliniSyla Care Team Providers Care Tool Liaison Name Role Phone Dr. Juan Francisco Jackson Primary Care Provider [phone] Dr. Juan Francisco Jackson Referring Provider Dr. Richard Nunez Attending Provider Dr. Richard Nunez Referring Provider Dr. Richard Nunez Other Provider Dr. Faizan Srinivasan Attending Provider [phone] Juan Francisco Jackson Primary Care Provider [phone] RENETTA RECINOS, DR AGUILAR Primary Care Physician LACEY BAIRES, DR. CALLE Attending [facility] juventino JACKSON MD., DR. AGUILAR Primary Care Unav Dr. Juan Francisco Donis Primary Care Provider [phone] Dr. Juan Francisco Jackson Referring Provider Dr. Pastora Fernandez Attending Provider Dr. Juan Francisco Jackson Primary Care Provider [phone] Dr. Juan Francisco Jackson Referring Provider Dr. Pastora Fernandez Attending Provider ASHIA Ravi Attending Provider UnavailDr. Alicia Alfred Attending Provider Dr. Lauren Jackson MD Primary Care Provider Jose Redding MD Attending Provider [phone] Jose Redding MD Referring Provider [phone] Jose Redding MD Other Provider Brooklyn RECINOS, Dr. Alves Attending Provider [phone] Renetta RECINOS, Dr. Aguilar Referring Provider Matt RECINOS, Dr. Vargas Attending Provider Matt RECINOS, Dr. Vargas Referring Provider Viviana MARIE, Dr. Putnam Emergency Provider Renetta RECINOS, Dr. Aguilar Primary Care Provider Renetta RECINOS, Dr. Aguilar Referring Provider Jose Redding MD Attending Provider [phone] Matt RECINOS, Dr. Vargas Attending Provider Matt RECINOS, Dr. Vargas Referring Provider Viviana MARIE, Dr. Putnam Attending Provider Viviana MARIE, Dr. Putnam Emergency Provider Jose Redding MD Referring Provider [phone] Vahid RECINOS, Jose Other Provider Ranney, Christopher Primary Care Unavailable Deepak Longo Attending Unavailable Ranney, Christopher Primary Care Unavailable Jersey Michelle Attending Unavailabl e Jose Redding Attending Unavailable Mollison, Jose Referring Unavailable Ranney, Christopher Primary Care Unavailable Ranney, Christopher Referring Unavailable Mollison, Jose Attending Unavailable Ranney, Christopher Primary Care Unavailable MollisonJose Attending Unavailable Mollison, Jose Consulting Unavailable Mollison, Jose Referring Unavailable Ranney, Christopher Primary Care Unavailable Mollison Jose Consulting Unavailable Mollison, Jose Referring Unavailable Ranney, Christopher Primary Care Unavailable Long Barahona Attending Unavailable Ranney, Christopher Referring Unavailable Mollison, Jose Attending Unavailable Ranney, Christopher Primary Care Unavailable Ranney, Christopher Referring Unavailable Mollison, Jose Attending Unavailable Ranney, Christopher Primary Care Unavailable Ranney, Christopher Referring Unavailable Mollison, Jose Attending Unavailable Ranney, Christopher Primary Care Unavailable Kendrick Reyes Attending Unavailable Ranney, Christopher Primary Care Unavailable Ranney, Christopher Referring Unavailable Mollison, Jose Attending Unavailable [facility] Primary Care Unavailable Lauren Jackson Referring Unavailable Lauren Jackson Referring Unavailable Jose Redding Attending Unavailable [facility] Unavailable Alicia Gutierrez Referring Unavailable Alicia Gutierrez Attending Unavailable Lauren Jackson Attending [facility]available [facility] Unavailable Jose Redding Referring Unavailable Jose Redding Attending Unavailable [facility] Unavailable Allergies Allergy Classification Reported Allergen(s) Allergy Type Date of Onset Reaction(s) Facility (15 sources) Escitalopram; Translations: [escitalopram] Drug Allergy 02-04-2022 unknown [facility] (1 source) Escitalopram Drug Allergy 04-11-2025 [facility] Repository Medications Current Medications Medication Drug Class(es) Dates Sig (Normalized) Sig (Original) [id number] 200 actuat albuterol 0.09 mg/actuat metered dose inhaler (13 sources) beta2-Adrenergic Agonist Start: 05-31-2021 Albuterol Sulfate 90 mcg/actuation HFA aerosol inhaler Active 2 - 4 NMA INHALATION Q4H as needed for shortness of breath or wheezing 8.May 31, 2021 12:00am Start: 05-31-2021 take 1 puff(s) by in halation every four hours Albuterol Sulfate Active 2 - 4 PUFF INHALATION Q4H 8.May 30, 2021 11:00pm albuterol MDI (90 mcg/inh) CFC free inhalation aerosol (1 source) Start: 07-26-2023 take 2 puff(s) by inhalation every four hours as needed for wheezing albuterol MDI (90 mcg/inh) CFC free inhalation aerosol 2 puff(s), Inhalation, q4h, PRN as needed for wheezing, # 18 gram(s), 0 Refill(s), Pharmacy: [facility]/pharmacy #[id number], 170.1, cm, 07/26/23 13:49:00 EDT, Height, kg, 08/08/22 10:18:00 EDT, Dosing Weight Start Date: 07/26/23 Status: Ordered FLUoxetine 20 mg oral capsule (15 sources) Serotonin Reuptake Inhibitor Start: 05-30-2021 take 1 capsule by mouth twice daily Fluoxetine 20 mg Capsule Active 20 mg PO TWICE A DAY May 30, 2021 12:00am hydrOXYzine hydrochloride 50 mg oral tablet (2 sources) Antihistamine Start: 09-19-2024 take 1 tablet by mouth three times daily as needed for anxiety Hydroxyzine Hcl 50 mg tablet Active 50 mg PO THREE TIMES A DAY as needed for anxiety September 19, 2024 12:00am omeprazole 40 mg delayed release oral capsule (15 sources) Proton Pump Inhibitor Start: 05-30-2021 take 1 capsule by mouth once daily Omeprazole 40 mg Capsule,Delayed Release(Dr/Ec) Active 40 mg PO DAILY May 30, 2021 12:00am Start: 05-30-2021 take 40 mg by mouth twice narayan y Omeprazole Active 40 MG PO TWICE A DAY May 29, 2021 11:00pm Multivitamins (1 source) Start: 07-26-2023 take 1 tablet by mouth once daily Multivitamins Dose = 1 tab(s), Oral, qDay, 0 Refill(s) Start Date: 07/26/23 Status: Ordered Completed/Discontinued Medications Medication Drug Class(es) Dates Sig (Normalized) Sig (Original) acetaminophen 325 mg / oxyCODONE hydrochloride 5 mg oral tablet (11 sources) Opioid Agonist Start: 11-16-2023 End: 09-19-2024 Oxycodone-Acetamino phen 5-325 mg tablet Discontinued 1 {tbl} PO EVERY 4 HOURS NEEDED as needed for Pain 10 November 16, 2023 September 19, 2024 3:30pm Start: 11-16-2023 take 1 tablet by catherine th every four hours as needed Oxycodone-Acetaminophen Active 1 TABLET PO EVERY 4 HOURS NEEDED 10 November 16, 2023 Start: 08-09-2023 End: 08-12-2023 Oxycodone-Acetaminophen (Per cocet) 5-325 mg tablet Discontinued 1 {tbl} PO Q4H as needed for pain 4 August 09, 2023 August 11, 2023 12:00am August 12, 2023 12:41am cephalexin 500 mg oral capsule (2 sources) Cephalosporin Antibacterial Start: 01-15-2025 End: 02-19-2025 take 1 capsule by mouth every six hours Cephalexin 500 mg capsule Discontinued 500 mg PO EVERY 6 HOURS 16 06January 15, 2025 9:30pm February 19, 2025 10:53am miSOPROStol 0.2 mg oral tablet (11 sources) Prostaglandin E1 Analog Start: 11-16-2023 End: 11-23-2023 Misoprostol (Cytotec) 200 mcg tablet Discontinued 1000 ug PO TWICE A DAY November 16, 2023 1:00am November 23, 2023 10:53am Take 48 hours after dose given in the Emergency Department (1400 hours on 18 Nov 2023) Start: 08-09-2023 End: 10-31-2023 take 1 tablet by mouth once Misoprostol (Cytotec) 200 mcg tablet Discontinued 600 ug PO ONCE August 09, 2023 12:00am October 31, 2023 4:36pm ondansetron 8 mg oral tablet (2 sources) Serotonin-3 Receptor Antagonist Start: 08-01-2024 End: 09-19-2024 take 1 tablet by mouth every eight hours as needed for nausea and your incision/area has: Continuous Slow Oozing, Sudden Increased Bleeding, Increased Pain/ Swelling, Increased Redness, Foul Smelling Discharge and Swelling at the incision site Call your doctor if you observe: Fever of 101 or Higher, Coldness, Increased Pain and Numbness or Tingling Change Dressing in: 1 day Cleanse incision/area with: Do not get Incision Wet Follow Up Care Please Follow Up With: Jose Redding MD When: within 2 weeks Test Results: Test results from this visit will be discussed in further detail at your follow-up appointment, if applicable. Discharge Plan Admission Attending Provider: Jose Redding Primary Care Provider: Lauren Jackson Instructions Patient Instructions: Carpal Tunnel Release Surgery Print Language: German Discharge Orders/Prescriptions Prescriptions: No Action hydroxyzine HCl 50 mg tablet 50 mg PO TID PRN (Reason: anxiety) fluoxetine 20 mg Capsule 20 mg PO BID omeprazole 40 mg Capsule,Delayed Release(Dr/Ec) 40 mg PO DAILY albuterol sulfate 90 mcg/actuation HFA aerosol inhaler 2 - 4 puff inhalation Q4H PRN (Reason: shortness of breath or wheezing) Qty: 8.5 0RF Referrals / Follow Up: Lauren Jackson MD [Primary Care Provider] - Jose Redding MD [Med Staff - Active Staff] - Disposition Disposition (needs filled in before D/C Order can be placed): Home, Self Care 02/28/25907 Jose Redding MD CC: Dr. Lauren Jackson MD Signed [facility] MR/POSTOP.ANEon 02-28-2025 MR/POSTOP.[facility] Medical Records Department [address] [place] [address] Anesthesia Postop Eval I 02/28/25916 MR#: [id number] Acct: [id number] Name: JAIRO MANCERA Rep #: [id number] : 1995 29 From: Joel López CRNA PCP: Dr. Lauren Jackson MD Status:REG [facility] Y Race: C Location: [place] [address] Anesthesia: Postop Eval I Current Vital Signs Temperature: 97.4 F Pulse Rate: 87 Blood Pressure: 148/65 Respiratory Rate: 16 Pulse Ox: 98 Assessment Airway patent: Yes Spontaneous unlabored respirations: Yes nausea: No Vomiting: No Anesthesia Complication: No Fluid Hydration Crystalloid volume administer (ml): 800 Total IV fluid infused: 800 Progress Note Anesthesia document: Postop Eval 1 completed: Yes 02/28/25917 Date Joel López CRNA Cosigner Signature: Date CC: Signed [facility] MR/[id number] 02-28-2025 MR/POSTOPAN2 [facility] Medical Records Department [address] [place] [address] Anesthesia Postop Eval II 02/28/25 1110 MR#: [id number] Acct: [id number] Name: JAIRO MANCERA Rep #: [id number] : 1995 29 From: Demetri Cheng MD PCP: Dr. Lauren Jackson MD Status:[facility] Y Race: C Location: [facility] Anesthesia Postop Eval I Sum Postop Eval Completion status Anesthesia document: Postop Eval 1 completed: Yes Anesthesia Postop Eval I Summary Anesthesia Postop Eval I Summary: Anesthesia Postop Eval I: Assessment Summary Airway patent Yes 02/28/25 09:17 [email or web address] Spontaneous unlabored Yes 02/28/25 09:17 [email or web address] respirations Mental status nausea No 02/28/25 09:17 [email or web address] Vomiting No 02/28/25 09:17 [email or web address] Anesthesia Postop Eval I: Fluid Summary Crystalloid volume administer 800 02/28/25 09:17 [email or web address] (ml) Colloids volume administered ( ml) Blood Product volume administered (ml) Total IV fluid infused 800 02/28/25 09:17 [email or web address] Anesthesia Postop Eval I: Summary Notes Anesthesia Complication No 02/28/25 09:17 [email or web address] Anesthesia Complication Comment: Post-operative progress note Anesthesia: Postop Eval II Evaluation Mental status: Awake Pain Level: 0 nausea: No Vomiting: No 02/28/25 1110 Date Demetri Orozco Signature: Date CC: Signed Normal [facility] Operative Reporton 5 Operative Report [facility] Medical Records Department [address] [place] [address] Operative Report 02/28/2504 MR#: [id number] Acct: [id number] Name: JAIRO MANCERA HU Rep #: [id number] : 1995 29 From: Jose Redding MD PCP: Dr. 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 Placed upon on the table. 3g iv ancef before the start of the case. Local/MAC induced by the anesthetic team. Patient placed supine on the table all bony prominences padded. SCDs on the legs. Hand table used both sides. Tourniquet applied properly padded to both upper extremity. Upper extremity prepped and draped in the usual sterile fashion with chlorhexidine-based prep solution allowing over 3 minutes drying time prior to draping. Preoperative timeout performed to confirm the site patient and the surgery. Did the same procedure on both sides. Began by elevating the limb and inflated the tourniquet to 250 mmHg. I used the Arthex center line endoscopic carpal tunnel technique. I made a transverse 2 cm incision in line with the transverse wrist crease.??? This was in line with the fourth digit.??? I carried the dissection down through skin and subcutaneous tissue achieved meticulous hemostasis. Just ulnar to palmaris tendon.??? I incised the antebrachial fascia.??? I passed sequential dilators into the carpal tunnel along the radial border of the Guyon's canal aiming for the fourth digit with the hand in extension.??? I used a synovial elevator to identify the transverse fibers of the transverse carpal tunnel ligament.??? Passed the scope into the carpal tunnel. Once I had identified the full proximal and distal extent of the ligament I fully released the ligament under direct visualization by deploying the blade and slowly withdrawing the scope made sequential passes until I no longer felt tension as well as the entire extent of the ligament was released under direct visualization.??? Sounded the tunnel with oakes tenotomy scissors, complete release, no bands. Arthroscope light was more visible through the skin. Release the forearm fascia also. Pictures taken and saved. Wounds thoroughly irrigated.??? 3cc 0.25% bupivicaine for local anesthesia (6 total). Tourniquet let down prior to end of the case and meticulous hemostasis achieved.??? Thorough irrigation.? Incisions closed with 3-0 vicryl and dermabond for skin. ???Then adaptic 4x4 gauze and bridgette wrap loosely wrapped. Patient woken up,??? transferred off the operating room table and taken to postanesthetic care unit in stable condition. All sponge needle instrument counts were correct no complications.???Hanh n for the patient to be discharged home according to day surgery criteria when they are comfortable. Follow-up in the office in 2 days time. Gentle ROM fingers and elbow no heavy lifting or repetitive wrist ROM. cpt 72221 x2 Surgical Findings: as above Complications Complications: No Admit VTE Documentation VTE Present on Admission: No VTE Mechan Device Prophylaxis: SCD's VTE Pharm Prophylaxis ordered?: No Reason prophylaxis not ordered: Treatment Not Indicated 02/28/25 0907 Cosigner Signature (if applicable): CC: Dr. Lauren Jackson MD; Dr. Jose Redding MD Signed Normal [facility] ,Urineon 02-28-2025 Beta HCG ( test) Ql (U) Negative Normal [facility] Comment on above: Result Comment: Very dilute urine specimens, as indicated by a low specific gravity, may not contain manufacturing sales representative levels of hCG. If is still suspected, a first morning urine specimen should be collected 48 hours later and tested. Performed By: #### L 198.6273 ####[facility] [address] [place], [place], [id number] Urine testOrdered By: Demetri Cheng on 02-28-2025 HCG ( test) Ql (U) Negative [facility] Comment on above: Very dilute urine sp ecimens, as indicated by a low specificgravity, may not contain manufacturing sales representative levels of hCG. If is still suspected, a first morning urinespecimen should be collected 48 hours later and tested. Urine Cultureon 01-18-2025 URC Below infection level. Mixed Gram Pos Gram Neg Org Harper Count <1000 MIXC Mixed contaminants. Submit a new specimen if indicated. Normal [facility] Comment on above: Performed By: #### M 100.2200 ####[facility] [address] [place], [address] Absolute neutrophil countOrd ered By: ED PROVIDER on 01-15-2025 Neutrophils (Bld) [#/Vol] 7.6 10*3/uL 2.0-7.7 [facility] BUN/creatinine ratioOrdered By: ED PROVIDER on 01-15-2025 Urea nitrogen/Creatinine [Mass ratio] 17.3 mg/mg 10-20 [facility] Basophil percentageOrdered B y: ED PROVIDER on 01-15-2025 Basophils/100 WBC (Bld) 0.6 % 0-1 [facility] Bilirubin Test strip Ql (U)O rdered By: ED PROVIDER on 01-15-2025 Bilirubin Ql (U) Negative Negative [facility] Bilirubin, totalOrdered By: ED PROVIDER on 01-15-2025 Bilirubin [Mass/Vol] 0.24 mg/dL 0.00-1.30 [facility] CBC W/Diff, Automatedon 12-22 Absolute Lymph 2.99 X10 3/uL Normal 0.83-4.51 [facility] Comment on above: Performed By: #### L 100.0100, L500.4050, L501.2450, L700.8000 ####[facility] [address] [place], [address] Absolute Neut 7.6 X10 3/uL Normal 2.0-7.7 [facility] Comment on above: Performed By: #### L 100.0100, L500.4050, L501.2450, L700.8000 ####[facility] [address] [place], [address] Basophils/100 WBC (Bld) 0.6 % Normal 0-1 [facility] Comment on above: Performed By: #### L 100.0100, L500.4050, L501.2450, L700.8000 ####[facility] [address] [place], [address] Eosinophils/100 WBC (Bld) 3.6 % Normal 0-5 [facility] Comment on above: Performed By: #### L 100.0100, L500.4050, L501.2450, L700.8000 ####[facility] [address] [place], [address] Erythrocyte distribution width (RBC) [Ratio] 13.1 % Normal 11.6-14.6 [facility] Comment on above: Performed By: #### L 100.0100, L500.4050, L501.2450, L700.8000 ####[facility] [address] [place], [address] Hematocrit (Bld) [Volume fraction] 39.0 % Normal 37-47 [facility] Comment on above: Performed By: #### L 100.0100, L500.4050, L501.2450, L700.8000 ####[facility] [address] [place], [address] Hemoglobin (Bld) [Mass/Vol] 12.8 g/dL Normal 12.0-15.0 [facility] Comment on above: Performed By: #### L 100.0100, L500.4050, L501.2450, L700.8000 ####[facility] [address] [place], [address] IG% 0.500 Normal 0.0-0.9 [facility] Comment on above: Result Comment: IG% - Immature Granulocytes (promyelocytes, myelocytes and metamyelocytes) > 1% indicates that a LEFT SHIFT is Present. Performed By: #### L 100.0100, L500.4050, L501.2450, L700.8000 ####[facility] [address] [place], [address] Lymphocytes/100 WBC (Bld) 25.1 % Normal 19-41 [facility] Comment on above: Performed By: #### L 100.0100, L500.4050, L501.2450, L700.8000 ####[facility] [address] [place], [address] MCH (RBC) [Entitic mass] 29.0 pg Normal 27.0-32.0 [facility] Comment on above: Performed By: #### L 100.0100, L500.4050, L501.2450, L700.8000 ####[facility] [address] [place], [address] MCHC (RBC) [Mass/Vol] 32.8 g/dL Normal 32-36 [facility] Comment on above: Performed By: #### L 100.0100, L500.4050, L501.2450, L700.8000 ####[facility] [address] [place], [address] MCV (RBC) [Entitic vol] 88.2 fL Normal 81-99 [facility] Comment on above: Performed By: #### L 100.0100, L500.4050, L501.2450, L700.8000 ####[facility] [address] [place], [address] Monocytes/100 WBC (Bld) 6.1 % Normal 0-10 [facility] Comment on above: Performed By: #### L 100.0100, L500.4050, L501.2450, L700.8000 ####[facility] [address] [place], [address] Neutrophils/100 WBC (Bld) 64.1 % Normal 47-70 [facility] Comment on above: Performed By: #### L 100.0100, L500.4050, L501.2450, L700.8000 ####[facility] [address] [place], [address] Nucleated RBC (Bld) [#/Vol] 0 10*3/uL Normal 0-5 [facility] Comment on above: Performed By: #### L 100.0100, L500.4050, L501.2450, L700.8000 ####[facility] [address] [place], [address] Platelet mean volume (Bld) [Entitic vol] 11.5 fL Normal 6.2-12.0 [facility] Comment on above: Performed By: #### L 100.0100, L500.4050, L501.2450, L700.8000 ####[facility] [address] [place], [address] Platelets (Bld) [#/Vol] 263 10*3/uL Normal 150-450 [facility] Comment on above: Performed By: #### L 100.0100, L500.4050, L501.2450, L700.8000 ####[facility] [address] [place], [address] RBC (Bld) [#/Vol] 4.42 10*6/uL Normal 4.2-5.[address] [facility] Comment on above: Performed By: #### L 100.0100, L500.4050, L501.2450, L700.8000 ####[facility] [address] [place], [address] RDW SD 42.5 fl Normal 35.1-43.9 [facility] Comment on above: Performed By: #### L 100.0100, L500.4050, L501.2450, L700.8000 ####[facility] [address] [place], [address] WBC (Bld) [#/Vol] 11.9 10*3/uL High 4.4-11.[address] [facility] Comment on above: Performed By: #### L 100.0100, L500.4050, L501.2450, L700.8000 ####[facility] [address] [place], [address] Carbon dioxide measurementOr dered By: ED PROVIDER on 01-15-2025 CO2 [Moles/Vol] 22.5 mmol/L 22.0-29.0 [facility] Chloride measurementOrdered By: ED PROVIDER on 01-15-2025 Chloride [Moles/Vol] 104 mmol/L 96-108 [facility] Comprehensive Metabolic Prof ilon 01-15-2025 Albumin [Mass/Vol] 4.0 g/dL Normal 3.5-5.0 [facility] Comment on above: Order Comment: REDRA W. PREVIOUS SPECIMEN REJECTED DUE TO HEMOLYSIS. 01/15/25 1640 Reyes Florian White. Performed By: #### L 500.4050, L501.2450 #### [facility] [address] [place], [address] Albumin/Globulin [Mass ratio] 1.4 {ratio} Normal 0.9-2.4 [facility] Comment on above: Order Comment: REDRA W. PREVIOUS SPECIMEN REJECTED DUE TO HEMOLYSIS. 01/15/25 1640 Reyes L White. Performed By: #### L 500.4050, L501.2450 #### [facility] [address] [place], [address] ALK PHOS 71 U/L Normal 35-104 [facility] Comment on above: Order Comment: REDRA W. PREVIOUS SPECIMEN REJECTED DUE TO HEMOLYSIS. 01/15/25 1640 Reyes L White. Performed By: #### L 500.4050, L501.2450 #### [facility] [address] [place], [address] ALT [Catalytic activity/Vol] 22 U/L Normal <=34 [facility] Comment on above: Order Comment: REDRA W. PREVIOUS SPECIMEN REJECTED DUE TO HEMOLYSIS. 01/15/25 Shelly [place]. Performed By: #### L 500.4050, L501.2450 #### [facility] [address] [place], [address] Anion gap [Moles/Vol] 11 mmol/L Normal 5-15 [facility] Comment on above: Order Comment: REDRA W. PREVIOUS SPECIMEN REJECTED DUE TO HEMOLYSIS. 01/15/25 Shelly Palacios. Performed By: #### L 500.4050, L501.2450 #### [facility] [address] [place], [address] AST [Catalytic activity/Vol] 18 U/L Normal <=31 [facility] Comment on above: Order Comment: REDRA W. PREVIOUS SPECIMEN REJECTED DUE TO HEMOLYSIS. 01/15/25 Shelly Palacios. Performed By: #### L 500.4050, L501.2450 #### [facility] [address] [place], [address] Bilirubin [Mass/Vol] 0.24 mg/dL Normal 0.00-1.30 [facility] Comment on above: Order Comment: REDRA W. PREVIOUS SPECIMEN REJECTED DUE TO HEMOLYSIS. 01/15/25 Shelly Palacios. Performed By: #### L 500.4050, L501.2450 #### [facility] [address] [place], [address] BUN/CRE 17.3 RATIO Normal 10-20 [facility] Comment on above: Order Comment: REDRA W. PREVIOUS SPECIMEN REJECTED DUE TO HEMOLYSIS. 01/15/25 Shelly Palacios. Performed By: #### L 500.4050, L501.2450 #### [facility] [address] [place], [address] Calcium [Mass/Vol] 8.7 mg/dL Normal 7.6-11.0 [facility] Comment on above: Order Comment: REDRA W. PREVIOUS SPECIMEN REJECTED DUE TO HEMOLYSIS. 01/15/25 Shelly Du White. Performed By: #### L 500.4050, L501.2450 #### [facility] [address] [place], [address] Chloride [Moles/Vol] 104 mmol/L Normal 96-108 [facility] Comment on above: Order Comment: REDRA W. PREVIOUS SPECIMEN REJECTED DUE TO HEMOLYSIS. 01/15/25 1640 Reyes Du White. Performed By: #### L 500.4050, L501.2450 #### [facility] [address] [place], [address] CO2 [Moles/Vol] 22.5 mmol/L Normal 22.0-29.0 [facility] Comment on above: Order Comment: REDRA W. PREVIOUS SPECIMEN REJECTED DUE TO HEMOLYSIS. 01/15/25 Shelly Du White. Performed By: #### L 500.4050, L501.2450 #### [facility] [address] [place], [address] Creatinine [Mass/Vol] 0.6 mg/dL Normal 0.6-1.0 [facility] Comment on above: Order Comment: REDRA W. PREVIOUS SPECIMEN REJECTED DUE TO HEMOLYSIS. 01/15/25 Shelly Du White. Performed By: #### L 500.4050, L501.2450 #### [facility] [address] [place], [address] ECRCL 226.94 ml/min Normal [facility] Comment on above: Order Comment: REDRA W. PREVIOUS SPECIMEN REJECTED DUE TO HEMOLYSIS. 01/15/25 Shelly Du White. Performed By: #### L 500.4050, L501.2450 #### [facility] [address] [place], [address] GFR/1.73 sq M.predicted among non-blacks MDRD (S/P/Bld) [Vol rate/Area] 123 mL/min/{1.73_m2} Normal >60 [facility] Comment on above: Order Comment: REDRA W. PREVIOUS SPECIMEN REJECTED DUE TO HEMOLYSIS. 01/15/25 Shelly Du White. Result Comment: mL/m in/1.73m2 CKD-EPI Creatinine Equation (2020) Performed By: #### L 500.4050, L501.2450 #### [facility] [address] [place], [address] Globulin (S) [Mass/Vol] 2.9 g/dL Normal 2.2-4.2 [facility] Comment on above: Order Comment: REDRA W. PREVIOUS SPECIMEN REJECTED DUE TO HEMOLYSIS. 01/15/25 1640 Reyes Du White. Performed By: #### L 500.4050, L501.2450 #### [facility] [address] [place], [address] Glucose [Mass/Vol] 98 mg/dL Normal 70-99 [facility] Comment on above: Order Comment: REDRA W. PREVIOUS SPECIMEN REJECTED DUE TO HEMOLYSIS. 01/15/25 1640 Reyes Du White. Performed By: #### L 500.4050, L501.2450 #### [facility] [address] [place], [address] Potassium [Moles/Vol] 4.2 mmol/L Normal 3.3-5.1 [facility] Comment on above: Order Comment: REDRA W. PREVIOUS SPECIMEN REJECTED DUE TO HEMOLYSIS. 01/15/25 1640 Reyes L White. Performed By: #### L 500.4050, L501.2450 #### [facility] [address] [place], [address] Sodium [Moles/Vol] 137 mmol/L Normal 133-145 [facility] Comment on above: Order Comment: REDRA W. PREVIOUS SPECIMEN REJECTED DUE TO HEMOLYSIS. 01/15/25 1640 Reyes Du White. Performed By: #### L 500.4050, L501.2450 #### [facility] [address] [place], [address] T PROT 6.8 g/dL Normal 5.9-8.4 [facility] Comment on above: Order Comment: REDRA W. PREVIOUS SPECIMEN REJECTED DUE TO HEMOLYSIS. 01/15/25 1640 Reyes Du White. Performed By: #### L 500.4050, L501.2450 #### [facility] [address] [place], [address] Urea nitrogen [Mass/Vol] 11 mg/dL Normal 4-19 [facility] Comment on above: Order Comment: REDRA W. PREVIOUS SPECIMEN REJECTED DUE TO HEMOLYSIS. 01/15/25 1640 Reyes L White. Performed By: #### L 500.4050, L501.2450 #### [facility] [address] [place], [address] ALB Normal 3.5-5.0 [facility] Comment on above: Result Comment: This specimen has been REJECTED due to Laboratory criteria: Hemolyzed. ED has been notified of need of recollection. 01/15/25 1639 Reyes L White Performed By: #### L 100.0100, L500.4050, L501.2450, L700.8000 ####[facility] [address] [place], [address] ALK PHOS Normal 35-104 [facility] Comment on above: Result Comment: This specimen has been REJECTED due to Laboratory criteria: Hemolyzed. ED has been notified of need of recollection. 01/15/25 1639 Reyes L White Performed By: #### L 100.0100, L500.4050, L501.2450, L700.8000 ####[facility] [address] [place], [address] ALT Normal <=34 [facility] Comment on above: Result Comment: This specimen has been REJECTED due to Laboratory criteria: Hemolyzed. ED has been notified of need of recollection. 01/15/25 1639 Reyes L White Performed By: #### L 100.0100, L500.4050, L501.2450, L700.8000 ####[facility] [address] [place], [address] Anion Gap Normal 5-15 [facility] Comment on above: Result Comment: This specimen has been REJECTED due to Laboratory criteria: Hemolyzed. ED has been notified of need of recollection. 01/15/25 1639 Reyes L White Performed By: #### L 100.0100, L500.4050, L501.2450, L700.8000 ####[facility] [address] [place], [address] AST Normal <=31 [facility] Comment on above: Result Comment: This specimen has been REJECTED due to Laboratory criteria: Hemolyzed. ED has been notified of need of recollection. 01/15/25 1639 Reyes L White Performed By: #### L 100.0100, L500.4050, L501.2450, L700.8000 ####[facility] [address] [place], [address] BUN Normal 4-19 [facility] Comment on above: Result Comment: This specimen has been REJECTED due to Laboratory criteria: Hemolyzed. ED has been notified of need of recollection. 01/15/25 1639 Reyes L White Performed By: #### L 100.0100, L500.4050, L501.2450, L700.8000 ####[facility] [address] [place], [address] BUN/CRE Normal 10-20 [facility] Comment on above: Result Comment: This specimen has been REJECTED due to Laboratory criteria: Hemolyzed. ED has been notified of need of recollection. 01/15/25 1639 Reyes L White Performed By: #### L 100.0100, L500.4050, L501.2450, L700.8000 ####[facility] [address] [place], [address] Calcium Normal 7.6-11.0 [facility] Comment on above: Result Comment: This specimen has been REJECTED due to Laboratory criteria: Hemolyzed. ED has been notified of need of recollection. 01/15/25 1639 Reyes Du White Performed By: #### L 100.0100, L500.4050, L501.2450, L700.8000 ####[facility] [address] [place], [address] Chloride Normal 96-108 [facility] Comment on above: Result Comment: This specimen has been REJECTED due to Laboratory criteria: Hemolyzed. ED has been notified of need of recollection. 01/15/25 1639 Reyes L White Performed By: #### L 100.0100, L500.4050, L501.2450, L700.8000 ####[facility] [address] [place], [address] CO2 Normal 22.0-29.0 [facility] Comment on above: Result Comment: This specimen has been REJECTED due to Laboratory criteria: Hemolyzed. ED has been notified of need of recollection. 01/15/25 1639 Reyes L White Performed By: #### L 100.0100, L500.4050, L501.2450, L700.8000 ####[facility] [address] [place], [address] CREAT,SERUM Normal 0.6-1.0 [facility] Comment on above: Result Comment: This specimen has been REJECTED due to Laboratory criteria: Hemolyzed. ED has been notified of need of recollection. 01/15/25 1639 Reyes L White Performed By: #### L 100.0100, L500.4050, L501.2450, L700.8000 ####[facility] [address] [place], [address] eGFR Normal >60 [facility] Comment on above: Result Comment: This specimen has been REJECTED due to Laboratory criteria: Hemolyzed. ED has been notified of need of recollection. 01/15/25 1639 Reyes L White Performed By: #### L 100.0100, L500.4050, L501.2450, L700.8000 ####[facility] [address] [place], [address] GLU Normal 70-99 [facility] Comment on above: Result Comment: This specimen has been REJECTED due to Laboratory criteria: Hemolyzed. ED has been notified of need of recollection. 01/15/25 1639 Reyes L White Performed By: #### L 100.0100, L500.4050, L501.2450, L700.8000 ####[facility] [address] [place], [address] Potassium Normal 3.3-5.1 [facility] Comment on above: Result Comment: This specimen has been REJECTED due to Laboratory criteria: Hemolyzed. ED has been notified of need of recollection. 01/15/25 1639 Reyes L White Performed By: #### L 100.0100, L500.4050, L501.2450, L700.8000 ####[facility] [address] [place], [address] Sodium Normal 133-145 [facility] Comment on above: Result Comment: This specimen has been REJECTED due to Laboratory criteria: Hemolyzed. ED has been notified of need of recollection. 01/15/25 1639 Reyes L White Performed By: #### L 100.0100, L500.4050, L501.2450, L700.8000 ####[facility] [address] [place], [address] T BILI Normal 0.00-1.30 [facility] Comment on above: Result Comment: This specimen has been REJECTED due to Laboratory criteria: Hemolyzed. ED has been notified of need of recollection. 01/15/25 1639 Reyes L White Performed By: #### L 100.0100, L500.4050, L501.2450, L700.8000 ####[facility] [address] [place], [address] T PROT Normal 5.9-8.4 [facility] Comment on above: Result Comment: This specimen has been REJECTED due to Laboratory criteria: Hemolyzed. ED has been notified of need of recollection. 01/15/25 1639 Reyes Palacios Performed By: #### L 100.0100, L500.4050, L501.2450, L700.8000 ####[facility] [address] [place], [address] Creatinine [Moles/Vol]Ordere d By: ED PROVIDER on 01-15-2025 Creatinine [Mass/Vol] 0.6 mg/dL 0.6-1.0 [facility] Emergency Department Summary on 01-15-2025 Emergency Department Summary [facility] Medical Records Department [address] [place] [address] Emergency Department Summary 01/15/25 MR#: [id number] Acct: [id number] Name: JAIRO MANCERA Rep #: [id number] : 1995 29 From: [place] Michelle DO PCP: Dr. Lauren Jackson MD Status:DEP ER Location: ED HPI HPI - Female History of Present Illness Chief Complaint: Vag Bld, Preg Narrative Narrative: Chief complaint and HPI: Vaginal bleeding in first trimester . 29-year-old female who is A3 presents for evaluation of vaginal bleeding in first trimester . Patient states that she found out she was about a week and a half ago. She states at that time she was 5 weeks by last menstrual period. She states last she developed vaginal bleeding. Suspected miscarriage given her history. Patient follows with [facility] Dr. Srinivasan Sanon. Patient since the vaginal bleeding she has been having pelvic abdominal pain. She states that her bleeding was improving until today where she had increased clots. States she has seen tissue. She endorses some lightheadedness. Denies any nausea or vomiting. Denies any fever or chills. On chart review patient had a beta-hCG on 01/13 that was 239. Beta-hCG earlier this morning was 112. She has yet to have an ultrasound. Patient is not on blood thinners. Denies any dysuria or vaginal discharge. Review of systems: See HPI Medications: As listed on the chart Allergies: As listed on the chart PFSH: Per chart Vital signs: As listed on the chart. Reviewed. Physical exam: Gen: A O x3, NAD Head: Normocephalic, atraumatic Eyes: No sclera icterus, conjunctiva clear ENT: Moist mucous membranes Neck: Trachea midline, No JVD CV: RRR, no murmurs, no peripheral edema Resp: Lungs CTA BL, no w/r/c GI: Abd soft, non-distended, non-tender, no r/r/g Pelvic: Normal external genitalia. No lesions, masses, or rashes appreciated. No vaginal discharge noted. Blood pooling in the vaginal vault. No tissue visualized. Unable to observe cervix due to blood pooling as well as body habitus. Exam not significantly painful. Musc: Full ROM, no deformity Skin: Warm, dry Neuro: Alert, oriented, grossly intact, sensation intact Psych: Cooperative, appropriate mood and affect [facility] Medical History (Updated 01/15/25 @ 20:[address] [place] Michelle, ) Wears glasses Fatty liver Excessive bleeding History of IBS Gastric reflux Shortness of breath on exertion History of Holter monitoring Bilateral carpal tunnel syndrome Alcohol abuse Anxiety Depression GERD (gastroesophageal reflux disease) Smoker Asthma Irregular heart beat Migraines Home Medications ???Medication ???Instructions ???Recorded ???Last Taken ???Type fluoxetine 20 mg capsule 20 mg PO BID Check with primary 05/28/21 History doctor omeprazole 40 mg capsule,delayed 40 mg PO DAILY 05/30/21 05/29/21 H istory release albuterol sulfate 90 mcg/actuation 2 - 4 puff inhalation Q4H PRN Unknown Rx aerosol inhaler shortness of breath or wheezing #8.5 grams hydroxyzine HCl 50 mg tablet 50 mg PO TID PRN anxiety 09/19/24 Unknown History cephalexin 500 mg capsule 500 mg PO Q6H 7 days #28 caps 12/22 05/14 Unknown Rx Allergy/AdvReac Type Severity Reaction Status Date / Time escitalopram (From Lexapro) AdvReac unknown Verified 01/15/25 15:00 Family History Mother CVA (cerebral vascular accident) Liver disease Myocardial infarction x5 Diabetes Retinal detachment Hypertrophic cardiomyopathy Grandmother Breast cancer and great-grandmother Father Liver disease Diabetes Other Heart disease Surgical History S/P D C (status post dilation and curettage) Social History adopted: No household members: spouse housing: apartment current occupational status: employed current occupation: [employer] current occupational exposures/hazards: No pets and animals: No history of recent travel: No sexually active: Yes Smoking Status: Current every day smoker tobacco type: cigarettes Tobacco: How many years used: 8 alcohol intake: never substance use type: former substance user and marijuana well-balanced diet: about half the time caffeine: Yes Type: carbonated beverages and coffee eating out: 1-3 times/week during the past year weight has: remained stable what type of physical activity do you participate in: walking and bicycling frequency: 1-2 times per week duration: 30-45 minutes/day mireya/baptism: Confucianist seatbelt use: sometimes do you feel safe at home: Yes 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 history: -Joann: [employer] (more content not included)... Normal [facility] Eosinophil percentageOrdered By: ED PROVIDER on 01-15-2025 Eosinophils/100 WBC (Bld) 3.6 % 0-5 [facility] Epithelial cells.squamous LM Ql (Urine sed)Ordered By: [place] Michelle on 01-15-2025 Epithelial cells.squamous LM.HPF (Urine sed) [#/Area] 5 /[HPF] 5-10 [facility] Erythrocyte distribution wid th ratioOrdered By: ED PROVIDER on 01-15-2025 Erythrocyte distribution width (RBC) [Ratio] 13.1 % 11.6-14.6 [facility] Erythrocyte distribution wid th standard deviationOrdered By: ED PROVIDER on 01-15-2025 Erythrocyte distribution width (RBC) [Entitic vol] 42.5 fL 35.1-43.9 [facility] Estimation of creatinine wendy aranceOrdered By: ED PROVIDER on 01-15-2025 Estimated Creatinine Clearance Calc 226.94 ml/min [facility] GFR/1.73 sq M.predicted jsoe enrique g non-blacks MDRD (S/P/Bld) [Vol rate/Area]Ordered By: ED PROVIDER on 01-15-2025 Estimated GFR (MDRD) Non-Af Amer 123 >60 [facility] Comment on above: mL/min/1.73m2 CKD-EP I Creatinine Equation (2020) Glucose Ql (U)Ordered By: ED PROVIDER on 01-15-2025 Urine Glucose (UA) Normal mg/dl Normal [facility] HCG ( test) QlOrder ed By: [place] Michelle on 01-15-2025 Human Chorionic Gonadotropin, Quant 106 mIU/mL High <9 [facility] Comment on above: Gestational Age0.2-1 Week: 5-50 mIU/mL1-2 Weeks: 50-500 mIU/mL2-3 Weeks: 100-5000 mIU/mL3-4 Weeks: 500-10,000 mIU/mL4-5 Weeks:1000-50,000 mIU/mL5-6 Weeks: 10,000-100,000 mIU/mL6-8 Weeks: 15,000-200,000 mIU/mL2-3 Months:10,000-100,000 mIU/mL Hematocrit Auto (Bld) [Volum e fraction]Ordered By: ED PROVIDER on 01-15-2025 Hematocrit (Bld) [Volume fraction] 39.0 % 37-47 [facility] Hemoglobin measurementOrdere d By: ED PROVIDER on 01-15-2025 Hemoglobin (Bld) [Mass/Vol] 12.8 g/dL 12.0-15.0 [facility] Immature granulocytes/100 WB C Auto (Bld)Ordered By: ED PROVIDER on 01-15-2025 Immature granulocytes/100 WBC (Bld) 0.500 % 0.0-0.9 [facility] Comment on above: IG% - Immature Granu locytes (promyelocytes, myelocytes and metamyelocytes) > 1% indicates that a LEFT SHIFT is Present. Ketones Test strip Ql (U)Ord ered By: ED PROVIDER on 01-15-2025 Ketones Ql (U) 5 mg/dl High Negative [facility] - Chemistry and C hemistry - challengeOrdered By: ED PROVIDER on 01-15-2025 AST [Catalytic activity/Vol] 18 U/L <32 [facility] Lipaseon 01-15-2025 Lipase [Catalytic activity/Vol] 24 U/L Normal 13-75 [facility] Comment on above: Order Comment: RED W. PREVIOUS SPECIMEN REJECTED DUE TO HEMOLYSIS. 01/15/25 1640 Reyes L White. Result Comment: Plesourav beltrán note: LIPASE revised reference range effective 23. New Lipase methodology. Expected to produce lower values than the previous assay method. NEW Reference Range: 13 - 75 U/L Performed By: #### L 500.4050, L501.2450 #### [facility] [address] [place], [address] Lipase [Catalytic activity/Vol] 27 U/L Normal [address] [place] [address] Comment on above: Order Comment: This specimen has been REJECTED due to Laboratory criteria:Hemolyzed.ED has been notified of need of recollection.01/15/25 1639 Reyes Du White Result Comment: This specimen has been REJECTED due to Laboratory criteria: Hemolyzed. ED has been notified of need of recollection. 01/15/25 1639 Reyes Du White Please note: LIPASE revised reference range effective 23. New Lipase methodology. Expected to produce lower values than the previous assay method. NEW Reference Range: 13 - 75 U/L Performed By: #### L 100.0100, L500.4050, L501.2450, L700.8000 ####[facility] [address] [place], [address] Lipase measurementOrdered By : ED PROVIDER on 01-15-2025 Lipase [Catalytic activity/Vol] 24 U/L 13-[address] [place] [address] Comment on above: Please note:LIPASE r evised reference range effective 23. New Lipase methodology. Expected to produce lower values than the previous assay method. NEW Reference Range: 13 - 75 U/L Lymphocytes Auto (Unsp spec) [#/Vol]Ordered By: ED PROVIDER on 01-15-2025 Lymphocytes (Bld) [#/Vol] 2.99 10*3/uL 0.83-4.51 [facility] Lymphocytes/100 WBC Auto (Un sp spec)Ordered By: ED PROVIDER on 01-15-2025 Lymphocytes/100 WBC (Bld) 25.1 % 19-41 [facility] MCV (mean corpuscular volume ) determinationOrdered By: ED PROVIDER on 01-15-2025 MCV (RBC) [Entitic vol] 88.2 fL 81-99 [facility] Mean corpuscular hemoglobin (MCH) determinationOrdered By: ED PROVIDER on 01-15-2025 MCH (RBC) [Entitic mass] 29.0 pg 27.0-32.0 [facility] Mean corpuscular hemoglobin concentration (MCHC) determinationOrdered By: ED PROVIDER on 01-15-2025 MCHC (RBC) [Mass/Vol] 32.8 g/dL 32-36 [facility] Mean platelet volume determi nationOrdered By: ED PROVIDER on 01-15-2025 Platelet mean volume (Bld) [Entitic vol] 11.5 fL 6.2-12.0 [facility] Microscopic analysis of urin e for red blood cells (RBC)Ordered By: [place] Michelle on 01-15-2025 Urine RBC > 100 SEEN /hpf 0-5 [facility] Monocyte percentageOrdered B y: ED PROVIDER on 01-15-2025 Monocytes/100 WBC (Bld) 6.1 % 0-10 [facility] Mucus LM Ql (Urine sed)Order ed By: [place] Michelle on 01-15-2025 Mucus Ql (Urine sed) 1+ /hpf [facility] Neutrophil percentageOrdered By: ED PROVIDER on 01-15-2025 Neutrophils/100 WBC (Bld) 64.1 % 47-70 [facility] Nitrite Test strip Ql (U)Ord ered By: ED PROVIDER on 01-15-2025 Nitrite Ql (U) Negative Negative [facility] Nucleated red blood cell per centageOrdered By: ED PROVIDER on 01-15-2025 Nucleated RBC/100 WBC (Bld) [Ratio] 0 % 0-5 [facility] Platelet countOrdered By: ED PROVIDER on 01-15-2025 Platelets (Bld) [#/Vol] 263 10*3/uL 150-450 [facility] Protein Test strip Ql (U)Ord ered By: ED PROVIDER on 01-15-2025 Protein Ql (U) 30 mg/dl High Negative [facility] RBC Auto (Bld) [#/Vol]Ordere d By: ED PROVIDER on 01-15-2025 RBC (Bld) [#/Vol] 4.42 10*6/uL 4.2-5.[address] [facility] Serum globulin measurementOr dered By: ED PROVIDER on 01-15-2025 Globulin (S) [Mass/Vol] 2.9 g/dL 2.2-4.2 [facility] Serum glucose measurement (m ass/volume)Ordered By: ED PROVIDER on 01-15-2025 Glucose [Mass/Vol] 98 mg/dL 70-99 [facility] Serum or plasma alanine aguilera otransferase (ALT) measurementOrdered By: ED PROVIDER on 01-15-2025 ALT [Catalytic activity/Vol] 22 U/L <35 [facility] Serum or plasma albumin ottoniel urement (mass/volume)Ordered By: ED PROVIDER on 01-15-2025 Albumin [Mass/Vol] 4.0 g/dL 3.5-5.0 [facility] Serum or plasma albumin/glob ulin mass ratioOrdered By: ED PROVIDER on 01-15-2025 Albumin/Globulin [Mass ratio] 1.4 {ratio} 0.9-2.4 [facility] Serum or plasma alkaline buffy sphatase measurementOrdered By: ED PROVIDER on 01-15-2025 ALP [Catalytic activity/Vol] 71 U/L 35-104 [facility] Serum or plasma anion gap de termination (moles/volume)Ordered By: ED PROVIDER on 01-15-2025 Anion gap [Moles/Vol] 11 mmol/L 5-15 [facility] Serum or plasma calcium ottoniel urement (mass/volume)Ordered By: ED PROVIDER on 01-15-2025 Calcium [Mass/Vol] 8.7 mg/dL 7.6-11.0 [facility] Serum or plasma potassium me asurementOrdered By: ED PROVIDER on 01-15-2025 Potassium [Moles/Vol] 4.2 mmol/L 3.3-5.1 [facility] Serum or plasma sodium measu rement (moles/volume)Ordered By: ED PROVIDER on 01-15-2025 Sodium [Moles/Vol] 137 mmol/L 133-145 [facility] Serum or plasma urea nitroge n measurement (mass/volume)Ordered By: ED PROVIDER on 01-15-2025 Urea nitrogen [Mass/Vol] 11 mg/dL 4-19 [facility] Total proteinOrdered By: ED PROVIDER on 01-15-2025 Protein [Mass/Vol] 6.8 g/dL 5.9-8.4 [facility] Transvaginal Non-on 01-15-2025 Transvaginal Non- [facility] Imaging Services [address] [place] [address] Transvaginal Non- MR#: [id number] Acct: [id number] Name: JAIRO MANCERA Rep #: [id number] : 1995 F 29 From: Sabine Camarillo nd, MD PCP: Dr. Lauren Jackson MD Status: [facility] Study: Transvaginal Non- Date of Exam: Exam# [id number] Ordering Dr: Jersey Michelle DO PROCEDURE: TRANSVAGINAL NON- REASON FOR EXAM: 29 y/o F, vaginal bleeding, s/p miscarriage last week. COMPARISON: None. TECHNIQUE: Transvaginal pelvic ultrasound. Color and spectral doppler analysis of the ovaries. FINDINGS: Measurements: Uterus: 9.0 x 5.7 x 4.6 cm with a volume of 123 mL Endometrial Thickness: 1.1 cm Right Ovary: Nonvisualized. Left Ovary: Nonvisualized. Uterus: Anteverted. Normal contour and myometrial echotexture. Endometrium: Normal echotexture. Other adnexal findings: None. Cul-de-sac: Minimal free fluid in the pelvis within normal limits. No tenderness. DOPPLER: Color Doppler: Normal color flow doppler signal at both ovaries. Spectral Doppler: Normal arterial inflow and venous outflow signal at both ovaries. US/Transvaginal Non- IMPRESSION: NORMAL TRANSVAGINAL PELVIC ULTRASOUND WITH DOPPLER. Reading Location: [id number] CC: Dr. Jersey Michelle, DO; Dr. Lauren Jackson MD Broadcast Operations Engineer: Signed Normal [facility] Urinalysis, Completeon 01-15 BACTERIA 1+ /hpf Normal None Seen [facility] Comment on above: Order Comment: CLEAN CATCH Performed By: #### L 400.0001 ####[facility] [id number] [place], [address] EPI,SQUAMOUS 5-10 SEEN Normal 5-10 [facility] Comment on above: Order Comment: CLEAN CATCH Performed By: #### L 400.0001 ####[facility] [id number] [place], [address] Mucus Ql (Urine sed) 1+ /hpf Normal [facility] Comment on above: Order Comment: CLEAN CATCH Performed By: #### L 400.0001 ####[facility] [id number] [place], [address] RBC > 100 SEEN Normal 0-5 [facility] Comment on above: Order Comment: CLEAN CATCH Performed By: #### L 400.0001 ####[facility] [address] [place], [address] WBC 25-50 SEEN Normal 0-5 [facility] Comment on above: Order Comment: CLEAN CATCH Performed By: #### L 400.0001 ####[facility] [address] [place], [address] Urine blood detectionOrdered By: ED PROVIDER on 01-15-2025 Urine Occult Blood 250 /ul High Negative [facility] Urine clarityOrdered By: ED PROVIDER on 01-15-2025 Clarity (U) Cloudy Clear [facility] Urine color determinationOrd ered By: ED PROVIDER on 02-26-2025 Color (U) Yellow Yellow [facility] Urine cultureOrdered By: Khanh Michelle on 01-15-2025 Bacteria identified Cx Nom (U) Mixed Gram Pos & Gram Neg Org Abnormal [facility] Bacteria identified Cx Nom (U) Mixed Gram Pos & Gram Neg Org Abnormal [facility] Urine leukocyte esterase det ection by dipstickOrdered By: ED PROVIDER on 01-15-2025 Leukocyte esterase Test strip Ql (U) 100 /ul High Negative [facility] Urine pHOrdered By: ED PROVI UNA on 01-15-2025 pH (U) 7.0 [pH] 5.0 - 8.0 [facility] Urine sediment bacteria coun t by microscopy (number/high power field)Ordered By: Jersey Michelle on 01-15-2025 Bacteria LM.HPF (Urine sed) [#/Area] 1 /[HPF] None Seen [facility] Urine specific gravity measu rementOrdered By: ED PROVIDER on 01-15-2025 Specific gravity (U) [Rel density] 1.015 1.002-1.030 [facility] Urobilinogen Ql (U)Ordered B y: ED PROVIDER on 01-15-2025 Urobilinogen (U) [Mass/Vol] 1 mg/dL High Normal [facility] White blood cell (WBC) count Ordered By: ED PROVIDER on 01-15-2025 WBC (Bld) [#/Vol] 11.9 10*3/uL High 4.4-11.[address] [facility] White blood cell countOrdere d By: Jersey Michelle on 01-15-2025 Urine WBC 25-50 SEEN /hpf 0-5 [facility] hCG Titer Quant., Serumon HCG QUANT. 106 mIU/mL High <9 non-preg [facility] Comment on above: Result Comment: Gest ational Age 0.2-1 Week: 5-50 mIU/mL 1-2 Weeks: 50-500 mIU/mL 2-3 Weeks: 100-5000 mIU/mL 3-4 Weeks: 500-10,000 mIU/mL 4-5 Weeks:1000-50,000 mIU/mL 5-6 Weeks: 10,000-100,000 mIU/mL 6-8 Weeks: 15,000-200,000 mIU/mL 2-3 Months:10,000-100,000 mIU/mL Performed By: #### L 700.8000 #### [facility] [address] [place], [place], [address] HCG QUANT. 112 mIU/mL High <9 non-preg [facility] Comment on above: Result Comment: Gest ational Age 0.2-1 Week: 5-50 mIU/mL 1-2 Weeks: 50-500 mIU/mL 2-3 Weeks: 100-5000 mIU/mL 3-4 Weeks: 500-10,000 mIU/mL 4-5 Weeks:1000-50,000 mIU/mL 5-6 Weeks: 10,000-100,000 mIU/mL 6-8 Weeks: 15,000-200,000 mIU/mL 2-3 Months:10,000-100,000 mIU/mL Performed By: #### L 100.0100, L500.4050, L501.2450, L700.8000 ####[facility] [address] [place], [place], [phone] HCG ( test) QlOrder ed By: Alicia Gutierrez on 01-13-2025 Human Chorionic Gonadotropin, Quant 239 mIU/mL High <4 [facility] Comment on above: hCG levels with Gest ational AgeGestational Age hCG mIU/mL (IU/L)0.2 - 1 week 5 - 501-2 weeks 50 - 5002-3 weeks 100 - 82213-9 weeks 500 - 210786-2 weeks 1000 - 158790-7 weeks 68348 - 100,0006-8 weeks 14239 - 200,0002-3 months 01062 - 100,000 hCG Titer Quant., Serumon HCG QUANT. 239 mIU/mL High 1-3 [facility] Comment on above: Result Comment: hCG levels with Gestational Age Gestational Age hCG mIU/mL (IU/L) 0.2 - 1 week 5 - 50 1-2 weeks 50 - 500 2-3 weeks 100 - 5000 3-4 weeks 500 - 49204 4-5 weeks 1000 - 63689 5-6 weeks 78671 - 100,000 6-8 weeks 72334 - 200,000 2-3 months 85894 - 100,000 Performed By: #### L 700.8000 #### [facility] [address] [place], [place], [address] MR/PAT.IRAJlori 01-01-2025 MR/PAT.IRAJ [facility] Medical Records Department [address] [place] [address] PAT - Anesthesia 01/01/25 1225 MR#: [id number] Acct: [id number] Name: JAIRO MANCERA Rep #: [id number] : 1995 29 From: Demetri Cheng MD PCP: Dr. 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 When Was Last Pacemaker Check QUESTION #4 FULL TEXT: You/Your Family Experience fever (hyperthermia) with Anesthesia Last Oral Intake Last Oral intake: Last Oral Intake NPO since Meds taken in AM with sips of water? 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 Has anyone observed you stop No 01/01/25 10:27 breathing during sleep? STOP Results Negative 01/01/25 10:27 QUESTION #5 FULL TEXT : Do you snore loudly (louder than talking or can be heard through closed doors)? 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 Specify any problems Hx of Preganancy in last 3 No 01/01/25 10:27 Months Nurse Filling Out Transfusion VCHRISTIN 01/01/25 10:27 Questions: Date: 01/01/25 01/01/25 10:27 Time: 10:27 01/01/25 10:27 Patient unable to answer at this time (ie. 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 Hx Now No 01/01/25 10:27 Gestational Age (in weeks): EDC: Hx Hx Para Hx Section SAB No 01/01/25 10:27 PFS Medical History (Updated 01/01/25 @ 10:26 by Cierra Lyle) Wears glasses Fatty liver Excessive bleeding History of IBS Gastric reflux Shortness of breath on exertion History of Holter monitoring Bilateral carpal tunnel syndrome Alcohol abuse Anxiety Depression GERD (gastroesophageal reflux disease) Smoker Asthma Irregular heart beat Migraines Home Medications ???Medication ???Instructions ???Recorded ???Last Taken ???Type fluoxetine 20 mg capsule 20 mg PO BID Check with primary 05/28/21 History doctor omeprazole 40 mg capsule,delayed 40 mg PO DAILY 05/30/21 05/29/21 H istory release albuterol sulfate 90 mcg/actuation 2 - 4 puff inhalation Q4H PRN Unknown Rx aerosol inhaler shortness of breath or wheezing #8.5 grams hydroxyzine HCl 50 mg tablet 50 mg PO TID PRN anxiety 09/19/24 Unknown History Allergy/AdvReac Type Severity Reaction Status Date / (more content not included)... Normal [facility] Orthopedic Visit Reporton Orthopedic Visit Report [facility] [address] [place] [address] OFFICE VISIT Date of Service: 11/18/24 MR#: [id number] Acct: [id number] Name: JAIRO MANCERA HU Rep #: [id number] : 1995 Provider: Dr. Jose sandoval MD Age/Sex: 28/F Location: [facility] Status: Signed Intake Vital Signs 09/19/24 15:27 Height 5 ft 7 in Weight: 325 lb BMI 50.8 Intake Visit Reasons: BL WRISTS Chief Complaint: EMG review Accompanied by: Self Allergies escitalopram (From Lexapro) Adverse Reaction (Verified 11/18/24 15:48) unknown Medications ???Medication ???Instructions ???Recorded ???Confirmed ???Type fluoxetine 20 mg capsule 20 mg PO BID Check with primary 05/30/21 11/18/24 History doctor omeprazole 40 mg capsule,delayed 40 mg PO BID Check with primary 05/30/21 11/18/24 History release doctor albuterol sulfate 90 mcg/actuation 2 - 4 puff inhalation Q4H PRN 05/31/21 11/18/24 Rx aerosol inhaler shortness of breath or wheezing #8.5 grams hydroxyzine HCl 50 mg tablet 50 mg PO TID PRN 09/19/24 11/18/24 History PFSH Medical History Bilateral carpal tunnel syndrome Alcohol abuse Anxiety Depression GERD (gastroesophageal reflux disease) Smoker Asthma Irregular heart beat Migraines Surgical History S/P D C (status post dilation and curettage) Family History Mother CVA (cerebral vascular accident) Liver disease Myocardial infarction x5 Diabetes Retinal detachment Hypertrophic cardiomyopathy Grandmother Breast cancer and great-grandmother Father Liver disease Diabetes Other Heart disease Social History adopted: No household members: spouse housing: apartment current occupational status: employed current occupation: [employer] current occupational exposures/hazards: No pets and animals: No history of recent travel: No sexually active: Yes Smoking Status: Current every day smoker tobacco type: cigarettes Tobacco: How many years used: 8 alcohol intake: never substance use type: former substance user and marijuana well-balanced diet: about half the time caffeine: Yes Type: carbonated beverages and coffee eating out: 1-3 times/week during the past year weight has: remained stable what type of physical activity do you participate in: walking and bicycling frequency: 1-2 times per week duration: 30-45 minutes/day mireya/baptism: Confucianist seatbelt use: sometimes do you feel safe at home: Yes 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 Jose Redding MD 11/18/24 1052. Part of today???s visit was documented by [ ], acting as scribe. JAIRO MANCERA is a 28 year old F here today for FU bilat NCS for carpal tunnel syndrome. Both hands still going numb worse on the left side. 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 Has been trying night splints without improvement. Supplemental Info [facility] Pulmonary Services/Neurology [address] [place] [address] MR#: [id number] Acct: [id number] Name: JAIRO MANCERA HU Rep #: [id number] : 1995 28 From: Long Barahona MD Referring Dr: Jose Redding MD Status: REG CLI Location: PSN Date: 10/23/24 Sex: F C NCS and/or EMG Patient Report Ordering Doctor: Jose Redding DATE OF SERVICE: 10/23/24 Jairo presents with complaints of numbness and tingling in both hands. Symptoms are worse on the left side. Electrodiagnostic findings: Left median motor nerve demonstrates prolonged distal latency with normal amplitude and reduced conduction velocity. Right median motor nerve demonstrates normal distal latency with normal amplitude and conduction velocity. Ulnar motor response within normal limits bilaterally. Normal median and ulnar F???waves. Borderline prolonged median sensory latency at the wrist bilaterally. Absent right median palmar response. Normal ulnar and radial sensory responses. Needle EMG testing was performed upper limbs. All muscles tested showed no evidence of denervation with normal motor units potentials Electrodiagnostic impression: This is an abnormal study 1. Electrodiagnostic findings suggestive of bilateral median mononeuropathy. This consistent with a moderate left carpal tunnel syndrome and a mild right car (more content not included)... Normal [facility] NCS and/or EMG Patienton NCS and/or EMG Patient [facility] Pulmonary Services/Neurology [address] [place] [address] MR#: [id number] Acct: [id number] Name: JAIRO MANCERA HU Rep #: [id number] : 1995 28 From: Long Barahona MD Referring Dr: Jose Redding MD Status: REG CLI Location: PSN Date: 10/23/24 Sex: F C NCS and/or EMG Patient Report Ordering Doctor: Jose Redding DATE OF SERVICE: 10/23/24 Jairo presents with complaints of numbness and tingling in both hands. Symptoms are worse on the left side. Electrodiagnostic findings: Left median motor nerve demonstrates prolonged distal latency with normal amplitude and reduced conduction velocity. Right median motor nerve demonstrates normal distal latency with normal amplitude and conduction velocity. Ulnar motor response within normal limits bilaterally. Normal median and ulnar F???waves. Borderline prolonged median sensory latency at the wrist bilaterally. Absent right median palmar response. Normal ulnar and radial sensory responses. Needle EMG testing was performed upper limbs. All muscles tested showed no evidence of denervation with normal motor units potentials Electrodiagnostic impression: This is an abnormal study 1. Electrodiagnostic findings suggestive of bilateral median mononeuropathy. This consistent with a moderate left carpal tunnel syndrome and a mild right carpal tunnel syndrome 2. No electrodiagnostic evidence is noted for cervical radiculopathy Multi Select Codes Neurology Neurology Interp Codes: 83028-46 Musc test done w/n test comp (interp) (2) and 73106-14 Nrv cndj test 11-12 studies (interp) 10/23/24 1513 Date Long Barahona MD CC: Dr. Long Barahona MD; Dr. Lauren Jackson MD; Dr. Jose Redding MD Date Dictated: 10/23/241453 Date Transcribed: 10/23/241453 Broadcast Operations Engineer: AA Signed Normal [facility] Orthopedic Visit Reporton Orthopedic Visit Report [facility] [address] [place] [address] OFFICE VISIT Date of Service: 09/19/24 MR#: [id number] Acct: [id number] Name: JAIRO MANCERA HU Rep #: [id number] : 1995 Provider: Dr. Jose sandoval MD Age/Sex: 28/F Location: [facility] Status: Signed Intake Vital Signs 08/01/24 11:52 09/16/24 13:43 09/19/24 15:27 Height 5 ft 7 in 5 ft 7 in 5 ft 7 in Weight: 334 lb 2 oz 325 lb BMI 52.3 50.8 BP 138/76 H Blood Pressure Location Rt brachial Position Sitting Respiration 18 Pulse 76 Pulse Source NIBP Temp 97.6 F L Temp Source Temporal Pulse Oximetry (%) 97 Oxygen Delivery Method room air Intake Visit Reasons: BI LAT WRISTS Chief Complaint: bilateral wrists Accompanied by: Self Is patient in pain?: Yes (right wrist) Pain scale (1-10): 3 Allergies escitalopram (From [employer]) Adverse Reaction (Verified 09/19/24 15:28) unknown Medications ???Medication ???Instructions ???Recorded ???Confirmed ???Type fluoxetine 20 mg capsule 20 mg PO BID Check with primary 05/30/21 09/19/24 History doctor omeprazole 40 mg capsule,delayed 40 mg PO BID Check with primary 05/30/21 09/19/24 History release doctor albuterol sulfate 90 mcg/actuation 2 - 4 puff inhalation Q4H PRN 05/31/21 09/19/24 Rx aerosol inhaler shortness of breath or wheezing #8.5 grams hydroxyzine HCl 50 mg tablet 50 mg PO TID PRN 09/19/24 09/19/24 History PFSH Medical History (Updated 09/19/24 @ 15:47 by Jose Redding MD) Bilateral carpal tunnel syndrome Alcohol abuse Anxiety Depression GERD (gastroesophageal reflux disease) Smoker Asthma Irregular heart beat Migraines Surgical History S/P D C (status post dilation and curettage) Family History Mother CVA (cerebral vascular accident) Liver disease Myocardial infarction x5 Diabetes Retinal detachment Hypertrophic cardiomyopathy Grandmother Breast cancer and great-grandmother Father Liver disease Diabetes Other Heart disease Social History adopted: No household members: spouse housing: apartment current occupational status: employed current occupation: [employer] current occupational exposures/hazards: No pets and animals: No history of recent travel: No sexually active: Yes Smoking Status: Current every day smoker tobacco type: cigarettes Tobacco: How many years used: 8 alcohol intake: never substance use type: former substance user and marijuana well-balanced diet: about half the time caffeine: Yes Type: carbonated beverages and coffee eating out: 1-3 times/week during the past year weight has: remained stable what type of physical activity do you participate in: walking and bicycling frequency: 1-2 times per week duration: 30-45 minutes/day mireya/baptism: Confucianist seatbelt use: sometimes do you feel safe at home: Yes 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 Jose Redding MD 09/19/24 1525. Part of today???s visit was documented by [ ], acting as scribe. JAIRO MANCERA is a 28 year old F here today for bilat hand numbness. RHD. 6 years. whole hand. 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 getting worse. going up the arm. bracing night time splints for 5 years. no cortisone injections. has to shake it out if holding things for more than 5 minutes. sore at night. worse at night, better in the mornings. Ortho Exam General General: Yes no acute distress Neurologic: Yes alert and Yes oriented x3 Psychologic: Yes reasonable and appropriate Right Wrist/Hand Skin/Wound: Yes CDI, No Swelling, No Ecchymosis, Yes nail intact and Yes capillary refill normal Right Wrist: Yes ROM-Extension 0-60, ROM-Flexion 0-80, ROM-Pronation 0-80, ROM-Supination 0-90 and Tinel's (pos at wrist, neg at elbow ); No Phalen's, Thenar Atrophy or Hypothenar Atrophy Motor: EPL: 5, FDP-2: 5, 1st Dorsal Interosseous: 5 and APB: 5 Sensation: Radial: I, Ulnar: I and Median: I Left Wrist/Hand Skin/Wound: Yes CDI, No Swelling, No Ecchymosis, Yes nail intact, Yes capillary refill normal and No erythema Left Wrist: Yes ROM-Extension 0-60, Yes ROM-Flexion 0-80, Yes ROM-Pronation 0-80, Yes ROM-Supination 0-90 and Yes Tinel's (pos wrist, neg elbow); No Phalen's, No Thenar Atrophy and No Hypothenar Atrophy Motor: EPL: 5, FDP-2: 5, 1st Dorsal Interosseous: 5 and APB: 5 Sensation: Radial: I, Ulnar: I and Median: I Coding Level of Care Code Off vis,new,level 3 Diagn (more content not included)... Normal [facility] Urgent Care Visit Reporton 0 08-01-2024 Urgent Care Visit Report [facility] [address], [address] [place] [address] OFFICE VISIT Date of Service: 08/01/24 MR#: [id number] Acct: [id number] Name: JAIRO MANCERA Rep #: [id number] : 1995 Provider: DAREK Penaloza Age/Sex: 28/F Location: [facility] Status: Signed Intake Vital Signs 07/30/24 22:26 08/01/24 11:52 Height 5 ft 7 in 5 ft 7 in Weight: 334 lb 2 oz BMI 52.3 BP 138/76 H Blood Pressure Location Rt brachial Position Sitting Respiration 18 Pulse 76 Pulse Source NIBP Temp 97.6 F L Temp Source Temporal Pulse Oximetry (%) 97 Oxygen Delivery Method room air 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 given Hydroxyzine RX, this is helping with anxiety but making pt nauseous and unable to eat. pt asking for nausea med so she can eat AND take medicine. [facility] Medical History Alcohol abuse Anxiety Depression GERD (gastroesophageal reflux disease) Smoker Asthma Irregular heart beat Migraines Surgical History S/P D C (status post dilation and curettage) Family History Mother CVA (cerebral vascular accident) Liver disease Myocardial infarction x5 Diabetes Retinal detachment Hypertrophic cardiomyopathy Grandmother Breast cancer and great-grandmother Father Liver disease Diabetes Other Heart disease Social History adopted: No household members: spouse housing: apartment current occupational status: employed current occupation: [employer] current occupational exposures/hazards: No pets and animals: No history of recent travel: No sexually active: Yes Smoking Status: Current every day smoker tobacco type: cigarettes Tobacco: How many years used: 8 alcohol intake: never substance use type: former substance user and marijuana well-balanced diet: about half the time caffeine: Yes Type: carbonated beverages and coffee eating out: 1-3 times/week during the past year weight has: remained stable what type of physical activity do you participate in: walking and bicycling frequency: 1-2 times per week duration: 30-45 minutes/day mireya/baptism: Confucianist seatbelt use: sometimes do you feel safe at home: Yes 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 Patient does have anxiety and was recently evaluated in the ED and started on hydroxyzine. Patient states that after that she started having nausea along with several episodes of vomiting. She denies abdominal or pelvic pain. No fever, chills, sweats. No hematochezia or hematemesis. No other associated symptoms or alleviating/aggravat ing factors. ROS Const Constitutional: No other (6 system ROS completed with pertinent findings in the HPI otherwise normal.) Exam Const General: cooperative HENMT Head: normocephalic and atraumatic Ears: hearing grossly normal bilaterally Face and sinus: face symmetric Eyes General: appearance normal, both eyes and all related structures Pupils: PERRL Resp Effort Inspection: normal respiratory effort Auscultation: Bilateral: Clear to Auscultation Cardio Rate: regular rate Rhythm: regular rhythm GI Inspection: normal to inspection Auscultation: hyperactive bowel sounds Percussion: normal to percussion Palpation: soft, no hepatosplenomegaly, no guarding and nontender General: bimanual renal exam normal bilaterally and No CVA tenderness Skin General: no rashes or lesions noted Neuro General: patient alert and CN's II-XI intact bilaterally Psych Appearance: grossly normal Mental Status: mental status grossly normal Coding Level of Care Code Off vis,new,level 3 Diagnoses Medication reaction T50.905A Assessment and Plan Assessment and Plan (1) Medication reaction: Status: Acute Medications: New ondansetron HCl 8 mg PO Q8H PRN 20 tabs 0RF nausea and vomiting Plan Zofran as prescribed today. Encouraged to get plenty of rest, drink lots of clear liquids only for the next 24 hours then sl (more content not included)... [facility] 12 Lead EKGon 07-30-2024 12 Lead EKG [facility] Cardiovascular Services [address] [place] [address] 12 Lead EKG 07/30/24 2307 MR#: [id number] Acct: [id number] Name: JAIRO MANCERA Rep #: [id number] : 1995 28 From: Yonny Ricks MD Attending Dr: Status: DEP ER Ordering Dr: Deepak Longo MD Date: 07/30/24 Location: ED Sex: F C Admitted: Test Reason : ANXIETY Blood Pressure : / mmHG Vent. Rate : 063 BPM Atrial Rate : 063 BPM P-R Int : 150 ms QRS Dur : 086 ms QT Int : 394 ms P-R-T Axes : 040 040 046 degrees QTc Int : 403 ms Normal sinus rhythm Low voltage QRS Borderline ECG Confirmed by YONNY RICKS MD ([id number]), acquisition editor DORETHA ADHIKARI ([id number]) on 07/31/2024 1:23:12 PM Referred By: Confirmed By:YONNY RICKS MD 07/31/24 1323 Date Yonny Ricks MD CC: Dr. Deepak Longo MD; Dr. Lauren Jackson MD Signed [facility] Emergency Department Summary on 07-30-2024 Emergency Department Summary [facility] Medical Records Department [address] [facility] [place] [address] Emergency Department Summary 07/30/24 MR#: [id number] Acct: [id number] Name: JAIRO MANCERA Rep #: [id number] : 1995 28 From: Deepak Longo MD PCP: Dr. Lauren Jackson MD Status:REG ER Location: ED HPI HPI - Psych History of Present Illness Chief Complaint: Anxiety Informant: patient and spouse/S.O. Narrative Narrative: 28-year-old female states she has had 3 anxiety/panic attacks in the last couple hours. She describes an overwhelming feeling of discomfort and anxiety, shaking, like once she has had often in the past except this is 3 in a row which is unusual and she had tingling down her left arm. She is feeling a little short of breath as well. No chest discomfort no presyncope or syncope. No focal neurologic symptoms otherwise. She just started fluoxetine 2 weeks ago for anxiety, after taking a hiatus from medication for her anxiety for the past year. Significant other states she has been having a lot more anxiety attacks in the past month or so hence getting back on the medication. PFSH [facility] Medical History Alcohol abuse Anxiety Depression GERD (gastroesophageal reflux disease) Smoker Asthma Irregular heart beat Migraines Home Medications ???Medication ???Instructions ???Recorded ???Last Taken ???Type fluoxetine 20 mg capsule 20 mg PO BID Check with primary 05/30/21 05/28/21 History doctor omeprazole 40 mg capsule,delayed 40 mg PO BID Check with primary 05/30/21 05/29/21 History release doctor albuterol sulfate 90 mcg/actuation 2 - 4 puff inhalation Q4H PRN 05/31/21 Unknown Rx aerosol inhaler shortness of breath or wheezing #8.5 grams oxycodone-acetaminop hen 5 mg-325 1 tab PO Q4H PRN PRN Pain 3 days 11/16/23 Unknown Rx mg tablet #10 TABLETS Allergy/AdvReac Type Severity Reaction Status Date / Time escitalopram (From Lexapro) AdvReac unknown Verified 07/30/24 22:26 Family History Mother CVA (cerebral vascular accident) Liver disease Myocardial infarction x5 Diabetes Retinal detachment Hypertrophic cardiomyopathy Grandmother Breast cancer and great-grandmother Father Liver disease Diabetes Other Heart disease Surgical History S/P D C (status post dilation and curettage) Social History adopted: No household members: spouse housing: apartment current occupational status: employed current occupation: [employer] current occupational exposures/hazards: No pets and animals: No history of recent travel: No sexually active: Yes Smoking Status: Current every day smoker tobacco type: cigarettes Tobacco: How many years used: 8 alcohol intake: never substance use type: former substance user and marijuana well-balanced diet: about half the time caffeine: Yes Type: carbonated beverages and coffee eating out: 1-3 times/week during the past year weight has: remained stable what type of physical activity do you participate in: walking and bicycling frequency: 1-2 times per week duration: 30-45 minutes/day mireya/baptism: Confucianist seatbelt use: sometimes do you feel safe at home: Yes 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 ROS ED Constitutional Constitutional ED: Denies chills or fever(s) Eyes Eyes: Denies change in vision or diplopia ENT ENT ED: Denies rhinorrhea, sore throat or vertigo Cardiovascular Cardiovascular: Reports lightheadedness; Denies chest pain or palpitations Respiratory/Chest Respiratory/Chest: Reports dyspnea; Denies cough Gastrointestinal Gastrointestinal: Reports nausea; Denies abdominal pain, diarrhea or vomiting Genitourinary Genitourinary ED: Denies dysuria or hematuria Musculoskeletal Musculoskeletal: Denies back pain or neck pain Integumentary Denies abscess or rash Neurologic Neurologic: Reports paresthesias LUE; Denies headache(s) or weakness Psychiatric Psychiatric: Reports anxiety; Denies suicidal ideation or suicidal thoughts EXAM Physical Exam Const Vital Signs: 07/30/24 22:26 Temperature 96.1 F L Temperature Source Temporal Pulse Rate 66 Respiratory Rate 16 Blood Pressure 136/76 H Blood Pressure Mean 96 Pulse Ox 97 Oxygen Delivery Method Room Air Positive well nourished, well developed and obese General Appearance ED: well developed and NAD Nutritional Appearance: obese HEENT Reports moist mucous membranes normocephalic and atraumatic Eyes PERRL and EOMs intact bilaterally Neck full ROM and supple Resp normal respiratory effort R (more content not included)... Normal [facility] T4 Free Directon 07-18-2024 T4 FREE DIRECT 0.98 ng/dL Normal 0.76-1.46 [facility] Comment on above: Order Comment: ADD O N T4F Performed By: #### L 501.9520, L100.0100, L500.4050, L501.5200, L506.0400 ####[facility] [address] [place], [address] CBC W/Diff, Automatedon 06-21 Absolute Lymph 3.65 X10 3/uL Normal 0.83-4.51 [facility] Comment on above: Performed By: #### L 501.9520, L100.0100, L500.4050, L501.5200, L506.0400 #### [facility] [address] [place], [address] Absolute Neut 6.4 X10 3/uL Normal 2.0-7.7 [facility] Comment on above: Performed By: #### L 501.9520, L100.0100, L500.4050, L501.5200, L506.0400 #### [facility] [address] [place], [address] Basophils/100 WBC (Bld) 0.8 % Normal 0-1 [facility] Comment on above: Performed By: #### L 501.9520, L100.0100, L500.4050, L501.5200, L506.0400 #### [facility] [address] [place], [address] Eosinophils/100 WBC (Bld) 3.4 % Normal 0-5 [facility] Comment on above: Performed By: #### L 501.9520, L100.0100, L500.4050, L501.5200, L506.0400 #### [facility] [address] [place], [address] Erythrocyte distribution width (RBC) [Ratio] 13.1 % Normal 11.6-14.6 [facility] Comment on above: Performed By: #### L 501.9520, L100.0100, L500.4050, L501.5200, L506.0400 #### [facility] [address] [place], [address] Hematocrit (Bld) [Volume fraction] 43.5 % Normal 37-47 [facility] Comment on above: Performed By: #### L 501.9520, L100.0100, L500.4050, L501.5200, L506.0400 #### [facility] [address] [place], [address] Hemoglobin (Bld) [Mass/Vol] 14.2 g/dL Normal 12.0-15.0 [facility] Comment on above: Performed By: #### L 501.9520, L100.0100, L500.4050, L501.5200, L506.0400 #### [facility] [address] [place], [address] IG% 0.400 Normal 0.0-0.9 [facility] Comment on above: Result Comment: IG% - Immature Granulocytes (promyelocytes, myelocytes and metamyelocytes) > 1% indicates that a LEFT SHIFT is Present. Performed By: #### L 501.9520, L100.0100, L500.4050, L501.5200, L506.0400 #### [facility] [address] [place], [address] Lymphocytes/100 WBC (Bld) 33.1 % Normal 19-41 [facility] Comment on above: Performed By: #### L 501.9520, L100.0100, L500.4050, L501.5200, L506.0400 #### [facility] [address] [place], [address] MCH (RBC) [Entitic mass] 28.5 pg Normal 27.0-32.0 [facility] Comment on above: Performed By: #### L 501.9520, L100.0100, L500.4050, L501.5200, L506.0400 #### [facility] [address] [place], [address] MCHC (RBC) [Mass/Vol] 32.6 g/dL Normal 32-36 [facility] Comment on above: Performed By: #### L 501.9520, L100.0100, L500.4050, L501.5200, L506.0400 #### [facility] [address] [place], [address] MCV (RBC) [Entitic vol] 87.2 fL Normal 81-99 [facility] Comment on above: Performed By: #### L 501.9520, L100.0100, L500.4050, L501.5200, L506.0400 #### [facility] [address] [place], [address] Monocytes/100 WBC (Bld) 4.5 % Normal 0-10 [facility] Comment on above: Performed By: #### L 501.9520, L100.0100, L500.4050, L501.5200, L506.0400 #### [facility] [address] [place], [address] Neutrophils/100 WBC (Bld) 57.8 % Normal 47-70 [facility] Comment on above: Performed By: #### L 501.9520, L100.0100, L500.4050, L501.5200, L506.0400 #### [facility] [address] [place], [address] Nucleated RBC (Bld) [#/Vol] 0 10*3/uL Normal 0-5 [facility] Comment on above: Performed By: #### L 501.9520, L100.0100, L500.4050, L501.5200, L506.0400 #### [facility] [address] [place], [address] Platelet mean volume (Bld) [Entitic vol] 12.1 fL High 6.2-12.0 [facility] Comment on above: Performed By: #### L 501.9520, L100.0100, L500.4050, L501.5200, L506.0400 #### [facility] [address] [place], [address] Platelets (Bld) [#/Vol] 337 10*3/uL Normal 150-450 [facility] Comment on above: Performed By: #### L 501.9520, L100.0100, L500.4050, L501.5200, L506.0400 #### [facility] [address] [place], [address] RBC (Bld) [#/Vol] 4.99 10*6/uL Normal 4.2-5.[address] [facility] Comment on above: Performed By: #### L 501.9520, L100.0100, L500.4050, L501.5200, L506.0400 #### [facility] [address] [place], [address] RDW SD 41.2 fl Normal 35.1-43.9 [facility] Comment on above: Performed By: #### L 501.9520, L100.0100, L500.4050, L501.5200, L506.0400 #### [facility] [address] [place], [address] WBC (Bld) [#/Vol] 11.0 10*3/uL Normal 4.4-11.[address] [facility] Comment on above: Performed By: #### L 501.9520, L100.0100, L500.4050, L501.5200, L506.0400 #### [facility] [address] [place], [address] Comprehensive Metabolic Prof kyon 07-17-2024 Albumin [Mass/Vol] 3.5 g/dL Normal 3.2-5.0 [facility] Comment on above: Performed By: #### L 501.9520, L100.0100, L500.4050, L501.5200, L506.0400 #### [facility] [address] [place], [address] Albumin/Globulin [Mass ratio] 0.9 {ratio} Normal 0.9-2.4 [facility] Comment on above: Performed By: #### L 501.9520, L100.0100, L500.4050, L501.5200, L506.0400 #### [facility] [address] [place], [address] ALK P 73 U/L Normal 45-117 [facility] Comment on above: Performed By: #### L 501.9520, L100.0100, L500.4050, L501.5200, L506.0400 #### [facility] [address] [place], [address] ALT [Catalytic activity/Vol] 33 U/L Normal 13-56 [facility] Comment on above: Performed By: #### L 501.9520, L100.0100, L500.4050, L501.5200, L506.0400 #### [facility] [address] [place], [address] AST [Catalytic activity/Vol] 15 U/L Normal 15-37 [facility] Comment on above: Performed By: #### L 501.9520, L100.0100, L500.4050, L501.5200, L506.0400 #### [facility] [address] [place], [address] Bilirubin [Mass/Vol] 0.30 mg/dL Normal 0.20-1.00 [facility] Comment on above: Result Comment: For patients on eltrombopag therapy, use of Dimension [place] TBIL is not recommended. Performed By: #### L 501.9520, L100.0100, L500.4050, L501.5200, L506.0400 #### [facility] [address] [place], [address] BUN/CRE 12.9 RATIO Normal 10-20 [facility] Comment on above: Performed By: #### L 501.9520, L100.0100, L500.4050, L501.5200, L506.0400 #### [facility] [address] [place], [address] CA,Total 9.2 mg/dL Normal 8.5-10.1 [facility] Comment on above: Performed By: #### L 501.9520, L100.0100, L500.4050, L501.5200, L506.0400 #### [facility] [address] [place], [address] Chloride [Moles/Vol] 109 mmol/L High 98-107 [facility] Comment on above: Performed By: #### L 501.9520, L100.0100, L500.4050, L501.5200, L506.0400 #### [facility] [address] [place], [address] CO2 [Moles/Vol] 25.0 mmol/L Normal 21.0-32.0 [facility] Comment on above: Performed By: #### L 501.9520, L100.0100, L500.4050, L501.5200, L506.0400 #### [facility] [address] [place], [address] Creatinine [Mass/Vol] 0.78 mg/dL Normal 0.55-1.02 [facility] Comment on above: Result Comment: The validity of the calculated GFR GFRAA in patients over 70 years has not been determined. Clinical correlation is essential. Performed By: #### L 501.9520, L100.0100, L500.4050, L501.5200, L506.0400 #### [facility] [address] [place], [address] EST GFR - AA 114 mL/min Normal >60 [facility] Comment on above: Result Comment: Afri can Guyanese GFR Calc Performed By: #### L 501.9520, L100.0100, L500.4050, L501.5200, L506.0400 #### [facility] [address] [place], [address] GAP 5 Normal 5-15 [facility] Comment on above: Performed By: #### L 501.9520, L100.0100, L500.4050, L501.5200, L506.0400 #### [facility] [address] [place], [address] GFR/1.73 sq M.predicted among non-blacks MDRD (S/P/Bld) [Vol rate/Area] 94 mL/min/{1.73_m2} Normal >60 [facility] Comment on above: Result Comment: Non- GFR Calc Performed By: #### L 501.9520, L100.0100, L500.4050, L501.5200, L506.0400 #### [facility] [address] [place], [address] Globulin (S) [Mass/Vol] 3.8 g/dL Normal 2.2-4.2 [facility] Comment on above: Performed By: #### L 501.9520, L100.0100, L500.4050, L501.5200, L506.0400 #### [facility] [address] [place], [address] Glucose [Mass/Vol] 95 mg/dL Normal 74-106 [facility] Comment on above: Performed By: #### L 501.9520, L100.0100, L500.4050, L501.5200, L506.0400 #### [facility] [address] [place], [address] Potassium [Moles/Vol] 4.3 mmol/L Normal 3.5-5.1 [facility] Comment on above: Performed By: #### L 501.9520, L100.0100, L500.4050, L501.5200, L506.0400 #### [facility] [address] [place], [address] Sodium [Moles/Vol] 139 mmol/L Normal 136-145 [facility] Comment on above: Performed By: #### L 501.9520, L100.0100, L500.4050, L501.5200, L506.0400 #### [facility] [address] [place], [address] T PROT 7.3 g/dL Normal 6.4-8.2 [facility] Comment on above: Performed By: #### L 501.9520, L100.0100, L500.4050, L501.5200, L506.0400 #### [facility] [address] [place], [address] Urea nitrogen [Mass/Vol] 10 mg/dL Normal 7-18 [facility] Comment on above: Performed By: #### L 501.9520, L100.0100, L500.4050, L501.5200, L506.0400 #### [facility] [address] [place], [address] Magnesiumon 07-17-2024 Magnesium [Mass/Vol] 2.3 mg/dL Normal 1.6-2.6 [facility] Comment on above: Performed By: #### L 501.9520, L100.0100, L500.4050, L501.5200, L506.0400 ####[facility] [address] [place], [place], [address] Thyroid Stim Hormone (TSH)on 07-17-2024 TSH 3.780 uIU/mL High 0.358-3.740 [facility] Comment on above: Performed By: #### L 501.9520, L100.0100, L500.4050, L501.5200, L506.0400 ####[facility] [address] [place], [place], [id number] Serum or plasma choriogonado tropin detectionOrdered By: Alicia Gutierrez on 11-22-2023 HCG ( test) Ql 79 mIU/mL <4 [facility] Comment on above: hCG levels with Gest ational AgeGestational Age hCG mIU/mL (IU/L)0.2 - 1 week 5 - 501-2 weeks 50 - 5002-3 weeks 100 - 53257-9 weeks 500 - 374747-4 weeks 1000 - 753234-2 weeks 60968 - 100,0006-8 weeks 94592 - 200,0002-3 months 05393 - 100,000 Blood hemoglobin measurement (mass/volume)Ordered By: Garo Zuniga on 11-16-2023 Hemoglobin (Bld) [Mass/Vol] 13.2 g/dL 12.0-15.0 [facility] Hematocrit Auto (Bld) [Volum e fraction]Ordered By: Garo Zuniga on 11-16-2023 Hematocrit (Bld) [Volume fraction] 40.8 % 37-47 [facility] Serum or plasma choriogonado tropin detectionOrdered By: Garo Zuniga on 11-16-2023 HCG ( test) Ql 2867 mIU/mL <4 [facility] Comment on above: hCG levels with Gest ational AgeGestational Age hCG mIU/mL (IU/L)0.2 - 1 week 5 - 501-2 weeks 50 - 5002-3 weeks 100 - 37060-7 weeks 500 - 835197-1 weeks 1000 - 508655-2 weeks 43014 - 100,0006-8 weeks 81682 - 200,0002-3 months 34019 - 100,000 Serum or plasma choriogonado tropin detectionOrdered By: Alicia Gutierrez on 11-08-2023 HCG ( test) Ql 2674 mIU/mL <4 [facility] Comment on above: hCG levels with Gest ational AgeGestational Age hCG mIU/mL (IU/L)0.2 - 1 week 5 - 501-2 weeks 50 - 5002-3 weeks 100 - 50309-8 weeks 500 - 653258-1 weeks 1000 - 993342-4 weeks 94645 - 100,0006-8 weeks 99801 - 200,0002-3 months 64710 - 100,000 Cervical or vagninal specime n microscopic examination by cytology stain (reported asOrdered By: Alicia Gutierrez on 11-06-2023 Cytology report Cyto stain Doc (Cvx/Vag) Comment . [facility] Comment on above: The Pap smear is a s creening test designed to aid in thedetection of premalignant and malignant conditions of theuterine cervix. It is not a diagnostic procedure andshould not be used as the sole means of detecting cervicalcancer. Both false-positive and false-negative reports dooccur. Chlamydia trachomatis rRNA d etection by probe and target amplification methodOrdered By: Pastora Mclaughlin on 11-06-2023 C. 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 [facility] Comment on above: Tatiana Murdock [employer] hnologist (ASCP) Laboratory - Microbiology an d Antimicrobial susceptibilityOrdered By: Pastora Mclaughlin on 11-06-2023 N. gonorrhoeae DNA JUNAID+probe Ql (Unsp spec) Negative Negative [facility] Comment on above: Performed at: [address] [id number] Director: Cyndee David MD, Phone: [phone] Laboratory - Miscellaneous t estsOrdered By: Alicia Gutierrez on 11-06-2023 Service comment (Unsp spec) [Interp] Comment . [facility] Comment on above: This liquid based Th inPrep(R) pap test was screened withthe use of an image guided system. Service comment (Unsp spec) [Interp] . . [facility] No Panel InformationOrdered By: Alicia Gutierrez on 11-06-2023 Human Papillomavirus Screen Comment . [facility] Comment on above: The HPV DNA reflex c kenrick were not met with this specimenresult therefore, no HPV testing was performed.Performed at: [facility] [id number] Director: Cyndee David MD, Phone: [phone] Pathology report final diagnosis Narrative Comment . [facility] Comment on above: NEGATIVE FOR INTRAEP ITHELIAL LESION OR MALIGNANCY. Serum or plasma choriogonado tropin detectionOrdered By: Alicia Gutierrez on 11-06-2023 HCG ( test) Ql 2159 mIU/mL <4 [facility] Comment on above: hCG levels with Gest ational AgeGestational Age hCG mIU/mL (IU/L)0.2 - 1 week 5 - 501-2 weeks 50 - 5002-3 weeks 100 - 28806-4 weeks 500 - 270867-8 weeks 1000 - 961938-6 weeks 43580 - 100,0006-8 weeks 45628 - 200,0002-3 months 77886 - 100,000 Serum or plasma choriogonado tropin detectionOrdered By: Morena Oreilly on 08-07-2023 HCG ( test) Ql 3023 mIU/mL <4 [facility] Comment on above: hCG levels with Gest ational AgeGestational Age hCG mIU/mL (IU/L)0.2 - 1 week 5 - 501-2 weeks 50 - 5002-3 weeks 100 - 47060-6 weeks 500 - 726277-0 weeks 1000 - 118294-1 weeks 85515 - 100,0006-8 weeks 70932 - 200,0002-3 months 33345 - 100,000 Serum or plasma choriogonado tropin detectionOrdered By: Morena Oreilly on 08-02-2023 HCG ( test) Ql 2625 mIU/mL <4 [facility] Comment on above: hCG levels with Gest ational AgeGestational Age hCG mIU/mL (IU/L)0.2 - 1 week 5 - 501-2 weeks 50 - 5002-3 weeks 100 - 25159-4 weeks 500 - 496005-4 weeks 1000 - 824097-7 weeks 81041 - 100,0006-8 weeks 57038 - 200,0002-3 months 14615 - 100,000 Serum or plasma choriogonado tropin detectionOrdered By: Morena Oreilly on 07-31-2023 HCG ( test) Ql 2178 mIU/mL <4 [facility] Comment on above: hCG levels with Gest ational AgeGestational Age hCG mIU/mL (IU/L)0.2 - 1 week 5 - 501-2 weeks 50 - 5002-3 weeks 100 - 97716-7 weeks 500 - 944389-9 weeks 1000 - 659948-4 weeks 50362 - 100,0006-8 weeks 10947 - 200,0002-3 months 16146 - 100,000 LABORATORYOrdered By: Whitney Velásquez on 07-26-2023 Amphetamines Screen Ql (U) Negative *NA* (07/26/23 4:44 PM) Invalid Interpretation Code Negative AH ADM SS Barbiturates Screen Ql (U) Negative *NA* (07/26/23 4:44 PM) Invalid Interpretation Code Negative AH ADM SS Benzodiazepines Ql (U) Negative *NA* (07/26/23 4:44 PM) Invalid Interpretation Code Negative AH ADM SS Benzoylecgonine Screen Ql (U) Negative *NA* (07/26/23 4:44 PM) Invalid Interpretation Code Negative AH ADM SS Cannabinoids Screen Ql (U) Positive *ABN* (07/26/23 4:44 PM) Invalid Interpretation Code Negative AH ADM SS fentaNYL Screen Ql (U) Negative 1 *NA* (07/26/23 4:44 PM) Invalid Interpretation Code Negative AH ADM SS Comment on above: Interpretive Data: T esting has been performed FOR MEDICAL PURPOSES ONLY. Methadone Screen Ql (U) Negative *NA* (07/26/23 4:44 PM) Invalid Interpretation Code Negative AH ADM SS Opiates Screen Ql (U) Negative *NA* (07/26/23 4:44 PM) Invalid Interpretation Code Negative AH ADM SS oxyCODONE Ql (U) Negative 2 *NA* (07/26/23 4:44 PM) Invalid Interpretation Code Negative AH ADM SS Comment on above: Interpretive Data: T esting has been performed FOR MEDICAL PURPOSES ONLY. pH (U) 5.5 [pH] Invalid Interpretation Code 5.0 - 8.0 AH Chemistry S Phencyclidine Ql (U) Negative *NA* (07/26/23 4:44 PM) Invalid Interpretation Code Negative AH ADM SS Propoxyphene Screen Ql (U) Negative *NA* (07/26/23 4:44 PM) Invalid Interpretation Code Negative AH ADM SS Urine Drugs screened: See Below 3 (07/26/23 4:44 PM) Invalid Interpretation Code AH Chemistry S Comment on above: Interpretive Data: T his drug screen is a presumptive screening only. No confirmation will be performed unless requested. Drugs screened include: Threshold Amphetamines/Methamphetamines 1,000 ng/mL Barbiturates 200 ng/mL Benzodiazepine metabolites 200 ng/mL Cannabinoids (THC metabolites) 50 ng/mL Benzoylecognine (Cocaine metab) 300 ng/mL Opiates 300 ng/mL Phencyclidine (PCP) 25 ng/mL Methadone 300 ng/mL Propoxyphene 300 ng/mL Fentanyl 1.0 ng/mL Oxycodone 100 ng/mL Testing has been performed FOR MEDICAL PURPOSES ONLY. No Panel Informationon 07-26 Culture Urine 10,000 - 50,000 cfu/ml Mixed growth consistent with normal urogenital edita. [facility] Work Phone: Serum or plasma choriogonado tropin detectionOrdered By: Morena Oreilly on 07-26-2023 HCG ( test) Ql 1371 mIU/mL <4 [facility] Comment on above: hCG levels with Gest ational AgeGestational Age hCG mIU/mL (IU/L)0.2 - 1 week 5 - 501-2 weeks 50 - 5002-3 weeks 100 - 59083-9 weeks 500 - 878873-7 weeks 1000 - 982356-6 weeks 85130 - 100,0006-8 weeks 71027 - 200,0002-3 months 43484 - 100,000 LABORATORYOrdered By: Marisela Hawkins on 08-08-2022 HCG ( test) Ql Negative (08/08/22 10:24 AM) Invalid Interpretation Code AO Manual Urine SS test (u) int Not detected Invalid Interpretation Code AO Manual Urine SS PREGUon 08-08-2022 HCG ( test) Ql (U) Negative Normal [facility] ([place]) Comment on above: Performed By: #### P REGU #### [facility] [address] [place], [place] [address] test (u) int Not detected Invalid Interpretation Code [facility] ([place]) Comment on above: Performed By: #### P REGU #### [place] [id number] [place], [place] [address] Basophil percentageon 2021 Bilirubin [Mass/Vol] 0.50 mg/dL 0.20-1.00 [facility] Work Phone: Comment on above: For patients on eltr ombopag therapy, use of Dimension [place] TBIL is not recommended. Chloride [Moles/Vol] 105 mmol/L 98-107 [facility] Work Phone: Glucose [Mass/Vol] 85 mg/dL 74-106 [facility] Work Phone: Potassium [Moles/Vol] 3.8 mmol/L 3.5-5.1 [facility] Work Phone: [phone] Protein [Mass/Vol] 7.6 g/dL 6.4-8.2 [facility] Work Phone: [phone] Sodium [Moles/Vol] 138 mmol/L 136-145 [facility] Work Phone: [phone] WBC (Bld) [#/Vol] 12.4 10*3/uL 4.4-11.[address] [facility] Work Phone: Blood erythrocytes count (nu mber/volume)on 08-01-2022 RBC (Bld) [#/Vol] 4.81 10*6/uL 4.2-5.[address] [facility] Work Phone: Blood hemoglobin measurement (mass/volume)on 08-01-2022 Hemoglobin (Bld) [Mass/Vol] 13.8 g/dL 12.0-15.0 [facility] Work Phone: [phone] Blood platelet mean volumeon 08-01-2022 Platelet mean volume (Bld) [Entitic vol] 12.1 fL 6.2-12.0 [facility] Work Phone: [phone] Determination of erythrocyte mean corpuscular volume (MCV)on 08-01-2022 MCV (RBC) [Entitic vol] 86.9 fL 81-99 [facility] Work Phone: [phone] Hematocrit Auto (Bld) [Volum e fraction]on 08-01-2022 Hematocrit (Bld) [Volume fraction] 41.8 % 37-47 [facility] Work Phone: [phone] Laboratory - Chemistry and C hemistry - challengeon 08-01-2022 ALP [Catalytic activity/Vol] 76 U/L 45-117 [facility] Work Phone: ALT [Catalytic activity/Vol] 38 U/L 13-56 [facility] Work Phone: CO2 [Moles/Vol] 24.0 mmol/L 21.0-32.0 [facility] Work Phone: Globulin (S) [Mass/Vol] 4.0 g/dL 2.2-4.2 [facility] Work Phone: T4 [Mass/Vol] 8.0 ug/dL 4.8-13.9 [facility] Work Phone: Urea nitrogen/Creatinine [Mass ratio] 12.8 mg/mg 10-20 [facility] Work Phone: [phone] Laboratory - Hematology and Cell countson 08-01-2022 Erythrocyte distribution width (RBC) [Entitic vol] 44.0 fL 35.1-43.9 [facility] Work Phone: [phone] Erythrocyte distribution width (RBC) [Ratio] 13.8 % 11.6-14.6 [facility] Work Phone: [phone] MCH (RBC) [Entitic mass] 28.7 pg 27.0-32.0 [facility] Work Phone: MCHC Auto (RBC) [Mass/Vol]on 08-01-2022 MCHC (RBC) [Mass/Vol] 33.0 g/dL 32-36 [facility] Work Phone: No Panel Informationon 08-01 Endomysial IgA Antibody Negative Negative [facility] Work Phone: Estimated GFR (MDRD) Amer 129 mL/min >60 [facility] Work Phone: Comment on above: GFR Calc Estimated GFR (MDRD) Non-Af Amer 107 mL/min >60 [facility] Work Phone: Comment on above: Non- GFR Calc Thyroid Stimulating Hormone (TSH) 4.00 uIU/mL 0.358-3.74 [facility] Work Phone: Platelets bldon 08-01-2022 Platelets (Bld) [#/Vol] 338 10*3/uL 150-450 [facility] Work Phone: Serum IgA measurement (units /volume)on 08-01-2022 IgA Qn (S) 178 mg/dL 87-352 [facility] Work Phone: Comment on above: Performed at: [place] [id number] Director: Chaparro Agosto PhD, Phone: [phone] Serum or plasma C reactive p rotein measurement (mass/volume)on 08-01-2022 CRP [Mass/Vol] 8.91 mg/L 0.0-3.0 [facility] Work Phone: Comment on above: C-Reactive Protein ( CRP) provides useful information for thediagnosis, therapy and monitoring of inflammatory processesand associated diseases. For the evaluation of Relative Riskfor Cardiovascular Disease, a High Sensitivity CRP (HSCRP)should be ordered. Serum or plasma albumin ottoniel urement (mass/volume)on 08-01-2022 Albumin [Mass/Vol] 3.6 g/dL 3.2-5.0 [facility] Work Phone: Serum or plasma albumin/glob ulin mass ratioon 08-01-2022 Albumin/Globulin [Mass ratio] 0.9 {ratio} 0.9-2.4 [facility] Work Phone: Serum or plasma calcium ottoniel urement (mass/volume)on 08-01-2022 Calcium [Mass/Vol] 8.8 mg/dL 8.5-10.1 [facility] Work Phone: Serum or plasma creatinine m easurement (mass/volume)on 08-01-2022 Creatinine [Mass/Vol] 0.70 mg/dL 0.55-1.02 [facility] Work Phone: Comment on above: The validity of the calculated GFR & GFRAA in patients over 70 years has not been determined. Clinical correlation is essential. Serum or plasma urea nitroge n measurement (mass/volume)on 08-01-2022 Urea nitrogen [Mass/Vol] 9 mg/dL 7-18 [facility] Work Phone: Serum tissue transglutaminas e IgA antibody assay (units/volume)on 08-01-2022 tTG IgA Qn (S) <2 U/mL 0-3 [facility] Work Phone: Comment on above: Negative 0 - 3 Weak Positive 4 - 10 Positive >10 Tissue Transglutaminase (tTG) has been identified as the endomysial antigen. Studies have demonstr- ated that endomysial IgA antibodies have over 99% specificity for gluten sensitive enteropathy. Thin prep Papanicolaou smear with manual screeningon 08-01-2022 Thin prep Papanicolaou smear with manual screening 17 U/L 15-37 [facility] Work Phone: Thin prep Papanicolaou smear with manual screening 9 5-15 [facility] Work Phone: Vital Signs Date Time Vital Sign Value Performing Clinician Faci lity 02-28-2025 10:46-0400 Body temperature 97.6 [degF] Dr. Lauren Jackson MD Work Phone: [phone] [place] [address] 02-28-2025 10:46-0400 Diastolic blood pressure 65 mm[Hg] Dr. Lauren Jackson MD Work Phone: [phone] [place] [address] 02-28-2025 10:46-0400 Heart rate 78 /min Dr. Lauren Jackson MD Work Phone: [phone] [place] [address] 02-28-2025 10:46-0400 Respiratory rate 16 /min Dr. Lauren Jackson MD Work Phone: [phone] [place] [address] 02-28-2025 10:46-0400 SaO2% (BldA) [Mass fraction] 96 % Dr. Lauren Jackson MD Work Phone: [phone])248-230189 [place] [address] 02-28-2025 10:46-0400 Systolic blood pressure 142 mm[Hg] Dr. Lauren Jackson MD Work Phone: [phone] [place] [address] 02-28-2025 07:18-0400 Body height 172.[address] Lauren Jackson MD Work Phone: [phone] [place] [address] 02-28-2025 07:18-0400 Body mass index (BMI) [Ratio] 56.4 kg/m2 Dr. Lauren Jackson MD Work Phone: [phone])778-744189 [place] [address] 02-28-2025 07:18-0400 Body weight 168.[address] Lauren Jackson MD Work Phone: [phone] [place] [address] 01-15-2025 20:24-0500 Body temperature 98.5 [degF] Dr. Lauren Jackson MD Work Phone: [phone])732-343020 [address] 01-15-2025 20:24-0500 Diastolic blood pressure 67 mm[Hg] Dr. Lauren Jackson MD Work Phone: [phone] [place] [address] 01-15-2025 20:24-0500 Heart rate 70 /min Dr. Lauren Jackson MD Work Phone: [phone] [address] 01-15-2025 20:24-0500 Respiratory rate 16 /min Dr. Lauren Jackson MD Work Phone: [facility] 01-15-2025 20:24-0500 SaO2% (BldA) [Mass fraction] 96 % Dr. Lauren Jackson MD Work Phone: [facility] 01-15-2025 20:24-0500 Systolic blood pressure 133 mm[Hg] Dr. Lauren Jackson MD Work Phone: [facility] 01-15-2025 14:57-0500 Body height 170.[address] Lauren Jackson MD Work Phone: [facility] 01-15-2025 14:57-0500 Body mass index (BMI) [Ratio] 57.8 kg/m2 Dr. Lauren Jackson MD Work Phone: [facility] 01-15-2025 14:57-0500 Body weight 167.[address] Lauren Jackson MD Work Phone: [phone] [place] [address] 11-23-2023 09:54-0500 Body height 170.[address] Juan Francisco Jackson Work Phone: [facility] 11-23-2023 09:52-0500 Body mass index (BMI) [Ratio] 54.6 kg/m2 Dr. uJan Francisco Jackson Work Phone: [facility] 11-23-2023 09:52-0500 Body weight 158.[address] Juan Francisco Jackson Work Phone: [facility] 11-23-2023 09:52-0500 Diastolic blood pressure 79 mm[Hg] Dr. Juan Francisco Jackson Work Phone: [facility] 11-23-2023 09:52-0500 Systolic blood pressure 124 mm[Hg] Dr. Juan Francisco Jackson Work Phone: [facility] 11-16-2023 14:03-0500 Diastolic blood pressure 66 mm[Hg] Dr. Juan Francisco Jackson Work Phone: [facility] 11-16-2023 14:03-0500 Heart rate 78 /min Dr. Juan Francisco Jackson Work Phone: [facility] 11-16-2023 14:03-0500 Respiratory rate 15 /min Dr. Juan Francisco Jackson Work Phone: [facility] 11-16-2023 14:03-0500 SaO2% (BldA) [Mass fraction] 99 % Dr. Juan Francisco Jackson Work Phone: [facility] 11-16-2023 14:03-0500 Systolic blood pressure 124 mm[Hg] Dr. Juan Francisco Jackson Work Phone: [facility] 11-16-2023 09:57-0500 Body height 170.[address] Juan Francisco Jackson Work Phone: [phone] [address] 11-16-2023 09:57-0500 Body mass index (BMI) [Ratio] 53 kg/m2 Dr. Juan Francisco Jackson Work Phone: [facility] 11-16-2023 09:57-0500 Body temperature 97.3 [degF] Dr. Juan Francisco Jackson Work Phone: [facility] 11-16-2023 09:57-0500 Body weight 153.[address] Juan Francisco Jackson Work Phone: [facility] 11-06-2023 08:27-0500 Body height 175.[address] Juan Francisco Jackson Work Phone: [facility] 11-06-2023 08:24-0500 Body mass index (BMI) [Ratio] 53.8 kg/m2 Dr. Juan Francisco Jackson Work Phone: [facility] 11-06-2023 08:24-0500 Body weight 156.[address] Juan Francisco Jackson Work Phone: [facility] 11-06-2023 08:24-0500 Diastolic blood pressure 78 mm[Hg] Dr. Juan Francisco Jackson Work Phone: [facility] 11-06-2023 08:24-0500 Systolic blood pressure 124 mm[Hg] Dr. Juan Francisco Jackson Work Phone: [facility] 08-09-2023 08:37-0400 Body height 175.[address] Juan Francisco Jackson Work Phone: [facility] 08-09-2023 08:34-0400 Body mass index (BMI) [Ratio] 50.1 kg/m2 Dr. Juan Francisco Jackson Work Phone: [facility] 08-09-2023 08:34-0400 Body weight 153.[address] Juan Francisco Jackson Work Phone: [facility] 08-09-2023 08:34-0400 Diastolic blood pressure 80 mm[Hg] Dr. Juan Francisco Jackson Work Phone: [facility] 08-09-2023 08:34-0400 Systolic blood pressure 128 mm[Hg] Dr. Juan Francisco Jackson Work Phone: [facility] 08-08-2022 11:30-0400 Diastolic Blood Pressure NBP [address] CHAPARRO RAHMAN MD [facility] 08-08-2022 11:30-0400 Heart rate 66 /min DR CHAPARRO RAHMAN MD [facility] 08-08-2022 11:30-0400 Respiratory rate 16 /min DR CHAPARRO RAHMAN MD [facility] 08-08-2022 11:30-0400 Systolic Blood Pressure NBP [address] CHAPARRO RAHMAN MD [facility] 08-08-2022 11:15-0400 Diastolic Blood Pressure NBP [address] CHAPARRO RAHMAN MD [facility] 08-08-2022 11:15-0400 Heart rate 73 /min DR CHAPARRO RAHMAN MD [facility] 08-08-2022 11:15-0400 Respiratory rate 20 /min DR CHAPARRO RAHMAN MD [facility] 08-08-2022 11:15-0400 Systolic Blood Pressure NBP [address] CHAPARRO RAHMAN MD [facility] 08-08-2022 11:03-0400 Diastolic Blood Pressure NBP [address] CHAPARRO RAHMAN MD [facility] 08-08-2022 11:03-0400 Heart rate 75 /min DR CHAPARRO RAHMAN MD [facility] 08-08-2022 11:03-0400 Respiratory rate 20 /min DR CHAPARRO RAHMAN MD [facility] 08-08-2022 11:03-0400 Systolic Blood Pressure NBP [address] CHAPARRO RAHMAN MD [facility] 08-08-2022 10:30-0400 Body height 170.[address] CHAPARRO RAHMAN MD [facility] 08-08-2022 09:57-0400 Body height 170.[address] CHAPARRO RAHMAN MD [facility] 08-08-2022 09:57-0400 Body temperature 97.34 [degF] DR CHAPARRO RAHMAN MD [facility] 08-08-2022 09:57-0400 Body weight [address] CHAPARRO RAHMAN MD [facility] 08-08-2022 09:57-0400 Diastolic blood pressure 78 mm[Hg] DR CHAPARRO RAHMAN MD [facility] 08-08-2022 09:57-0400 Heart rate 72 /min DR CHAPARRO RAHMAN MD [facility] 08-08-2022 09:57-0400 Systolic blood pressure 113 mm[Hg] DR CHAPARRO RAHMAN MD [facility] 02-04-2022 10:35-0400 Body height 175.[address] Juan Francisco Jackson Work Phone: [facility] Work Phone: 02-04-2022 10:35-0400 Body mass index (BMI) [Ratio] 57.4 kg/m2 Dr. Juan Francisco Jackson Work Phone: [facility] Work Phone: 02-04-2022 10:35-0400 Body temperature 97.3 [degF] Dr. Juan Francisco Jackson Work Phone: [facility] Work Phone: 02-04-2022 10:35-0400 Body weight 176.[address] Juan Francisco Jackson Work Phone: [facility] Work Phone: 02-04-2022 10:35-0400 Diastolic blood pressure 79 mm[Hg] Dr. Juan Francisco Jackson Work Phone: [facility] Work Phone: 02-04-2022 10:35-0400 Heart rate 73 /min Dr. Juan Francisco Jackson Work Phone: [facility] Work Phone: 02-04-2022 10:35-0400 Respiratory rate 16 /min Dr. Juan Francisco Jackson Work Phone: [facility] Work Phone: 02-04-2022 10:35-0400 SaO2% (BldA) [Mass fraction] 98 % Dr. Juan Francisco Jackson Work Phone: [facility] Work Phone: 02-04-2022 10:35-0400 Systolic blood pressure 120 mm[Hg] Dr. Juan Francisco Jackson Work Phone: [facility] Work Phone: Encounters Encounter Date Encounter Type Care Provider Facility Start: 04-11-2025 End: 04-11-[facility] Start: 03-13-2025 End: 03-13-2025 ambulatory [facility] Facility:[facility] Start: 03-04-2025 Encounter for other preprocedural examination Jose Redding [facility] Start: 03-03-2025 End: 03-03-2025 ambulatory [facility] Facility:[facility] Start: 02-28-2025 Non-patient / Non-visit Dr. Jose diaz MD -[facility] Start: 02-28-2025 End: 02-28-2025 Admission to same day surgery center Dr. Jose Redding MD -[facility] Start: 02-28-2025 End: 02-28-[address] Lauren Jackson MD Work Phone: [facility] Work Phone: Start: 01-15-2025 End: 01-15-2025 Emergency department patient visit Dr. Lauren Jackson MD Work Phone: -Emergency Department Work Phone: Start: 01-13-2025 End: 01-13-[address] Lauren Jackson MD Work Phone: [facility] Work Phone: Start: 01-13-2025 End: 01-13-[address] Alicia Gutierrez MD -Laboratory Work Phone: Start: 01-13-2025 End: 01-13-2025 ambulatory Lauren Jackson Facility:[facility] Start: 11-18-2024 End: 11-18-[address] Jose Redding MD -[facility] Work Phone: Start: 11-18-2024 End: 11-18-2024 ambulatory Lauren Jackson Facility:[facility] Start: 11-11-2024 ambulatory Lauren Jackson Faci lity:[facility] Start: 10-23-2024 ambulatory Jose Redding Facility :[facility] Start: 10-23-2024 Non-patient / Non-visit Dr. Long louis MD -[facility]- Start: 10-23-2024 End: 10-23-[address] Jose Redding MD -Pulmonary Services/Neurology Work Phone: Start: 10-23-2024 End: 10-23-2024 ambulatory Jose Redding Facility:[facility] Start: 09-19-2024 End: 09-19-2024 ambulatory Jose Redding Facility:[facility] Start: 08-01-2024 End: 08-01-2024 ambulatory Kendrick Neymar OSWALD Facility:[facility] Start: 07-30-2024 End: 07-31-2024 Emergency department patient visit Lauren Jackson Facility:[facility] Start: 07-17-2024 End: 07-17-2024 ambulatory Lauren Jackson Facility:[facility] Start: 11-23-2023 End: 11-23-[address] Juan Francisco Jackson Work Phone: [facility] Work Phone: Start: 11-22-2023 End: 11-22-[address] Juan Francisco Jackson Work Phone: [facility] Work Phone: Start: 11-22-2023 End: 11-22-[address] Juan Francisco Jackson Work Phone: [facility]-Laboratory Work Phone: Start: 11-16-2023 End: 11-16-2023 Emergency department patient visit Dr. Juan Francisco Jackson Work Phone: [facility]-Emergency Department Work Phone: Start: 11-08-2023 End: 11-08-[address] Juan Francisco Jackson Work Phone: [facility] Work Phone: Start: 11-08-2023 End: 11-08-[address] Juan Francisco Jackson Work Phone: [facility]-Laboratory Work Phone: Start: 11-07-2023 End: 11-07-[address] Juan Francisco Jackson Work Phone: [facility] Work Phone: Start: 11-07-2023 End: 11-07-[address] Juan Francisco Jackson Work Phone: [facility]-Ultrasound, [facility] Work Phone: Start: 11-06-2023 End: 11-06-[address] Juan Francisco Jackson Work Phone: [facility] Work Phone: Start: 10-31-2023 Non-patient / Non-visit Dr. Juancho Jackson Work Phone: [facility] Work Phone: Start: 08-09-2023 End: 08-09-[address] Juan Francisco Jackson Work Phone: [facility] Work Phone: Start: 08-07-2023 End: 08-07-[address] Juan Francisco Jackson Work Phone: [facility] Work Phone: Start: 08-07-2023 End: 08-07-2023 Patient encounter procedure [facility]atory, [facility] Start: 08-03-2023 End: 08-03-[address] Juan Francisco Jackson Work Phone: [facility] Work Phone: Start: 08-03-2023 End: 08-03-2023 Patient encounter procedure [facility]-Ultrasound, [facility] Work Phone: Start: 08-02-2023 End: 08-02-2023 ambulatory [facility] Work Phone: Start: 08-02-2023 End: 08-02-2023 [facility] Start: 07-31-2023 End: 07-31-2023 ambulatory [facility] Work Phone: Start: 07-31-2023 End: 07-31-2023 Patient encounter procedure [facility]-Laboratory Work Phone: Start: 07-26-2023 End: 07-30-2023 Outreach [facility] MAX POP MD [facility] Start: 07-26-2023 End: 07-26-2023 ambulatory [facility] Work Phone: Start: 07-26-2023 End: 07-26-2023 [facility] Start: 08-08-2022 End: 08-09-[address] CHAPARRO RAHMAN MD. Facility:[facility] Start: 08-08-2022 End: 08-08-[address] CHAPARRO RAHMAN MD [facility] Start: 08-01-2022 End: 08-01-[address] Juan Francisco Jackson Work Phone: [facility] Work Phone: Start: 08-01-2022 End: 08-01-2022 Patient encounter procedure Dr. Juan Francisco [place] Work Phone: [facility] Start: 04-06-2022 Non-patient / Non-visit Dr. Juancho [place] Work Phone: [facility] Start: 04-06-2022 End: 04-06-[address] Juan Francisco [place] Work Phone: [facility]Neurology Start: 02-04-2022 End: 02-04-[address] Juan Francisco [place] Work Phone: [facility] Medicine [facility] Procedures Date Procedure Procedure Detail Performing Clinician Start: 02-28-[address] Clementina [place] MD Work Phone: Start: 01-15-[address] Lauren [place] MD Work Phone: Start: 01-15-[address] Carl [place] MD Work Phone: Start: 11-16-[address] Transv[address] obst[address] ic ultrasonography Dr. Juan Francisco [place] Work Phone: Start: 11-07-2023 Ultrasound scan - obstetric Dr. Juan Francisco [place] Work Phone: Start: 11-06-[address] Carl [place] Work Phone: Start: 08-03-2023 Transvaginal obstetr ic ultrasonography Start: 08-08-[address] CHAPARRO RAHMAN MD Plan of Treatment Date Care Activity Detail Author Start: 02-28-2025 Patient [address] [facility] Start: 02-28-2025 Application of ice c ollar, cap or bag [facility] Start: 02-28-2025 Assessment of risk o f venous thromboembolism [facility] Start: 02-28-2025 Catheterization of vein [facility] Start: 02-28-2025 Continuous positive airway pressure ventilation treatment [facility] Start: 02-28-2025 Elevation of affected extremity [facility] Start: 02-28-2025 Following clinical pathway protocol [facility] Start: 02-28-2025 Incentive spirometry [facility] Start: 02-28-2025 Introduction of urinary catheter [facility] Start: 02-28-2025 Provision of activity privileges [facility] Start: 02-28-2025 Vital signs measurements [facility] Start: 02-28-2025 [facility] Start: 01-15-2025 [facility] Start: 11-16-2023 [facility] Start: 11-06-2023 Liquid based cervica l cytology screening [facility] Beta 2 glycoprotein 1 Ab IgA and IgG and IgM panel - Serum [facility] Cardiolipin IgA and IgG and IgM panel - Serum [facility] Cardiolipin IgG and IgM panel - Serum [facility] CBC W Auto Different ial panel - Blood [facility] Choriogonadotropin ( test) [Presence] in Serum or Plasma [facility] Hemoglobin A1c/Hemog lobin.total in Blood [facility] Hemoglobin A1c/Hemtenet [place].total in Blood [facility] Hepatitis B surface antigen measurement [facility] Hepatitis C antibody measurement [facility] HIV 1+2 Ab+HIV1 p24 Ag [Presence] in Serum or Plasma by Immunoassay [facility] Lupus anticoagulant assay [facility] Patient Education [facility] Work Phone: Patient referral [facility] Work Phone: Rubella IgG measurement [facility] Thyroid stimulating hormone measurement [facility] Treponema sp Ab [Presence] in Serum [facility] Ultrasound scan - obstetric [facility] US Pelvis [facility] US Pelvis transv[facility]inal [facility] Payers Date Payer Category Payer Self-pay [id number] 2022 Unknown [id number] 1995 Unknown [id number] 2.16.8 [id number] Unknown [id number] Unknown [id number] 2.16.8 [id number] Unknown [id number] 2.16.8 40.1.019486.3.579.2.462 Unknown [id number] 2.16.8 40.1.590567.3.579.2.462 Unknown [id number] 2.16.8 40.1.613387.3.579.2.462 Unknown [id number] 2.16.8 40.1.467815.3.579.2.462 Unknown [id number] 2.16.8 40.1.385288.3.579.2.462 Unknown [id number] 2.16.8 40.1.410385.3.579.2.462 Unknown [id number] 2.16.8 40.1.399052.3.579.2.462 Unknown [id number] 2.16.8 40.1.430563.3.579.2.462 Unknown [id number] 2.16.8 40.1.589777.3.579.2.462 Unknown [id number] 2.16.8 40.1.601273.3.579.2.462 Unknown [id number] 2.16.8 40.1.293033.3.579.2.462 Unknown [id number] 2.16.8 40.1.049445.3.579.2.462 Unknown [id number] 2.16.8 40.1.960121.3.579.2.462 Unknown [id number] 2.16.8 40.1.689758.3.579.2.462 Social History Date Type Detail Facility Start: 02-04-2022 End: 11-23-2023 Tobacco smoking status KSIS Unknown if ever smoked [facility] Start: 1995 Sex Assigned At Female [facility] Start: 08-08-2022 Tobacco smoking status Heavy tobacco smoker (finding) [facility] Start: 07-26-2023 Tobacco smoking status Light tobacco smoker (finding) [facility] Start: 01-15-2025 End: 02-19-2025 Tobacco smoking status NHIS Smokes tobacco daily (finding) [facility] Start: 01-25-2025 End: 02-28-2025 Sex Female (finding) [facility] NEGATED: Highlighted row Not [facility] Goals Date Patient Goal Desired Activity /State Functional Status Date Assessment Result Facility 08-08-2022 [facility] 08-08-2022 Functional Status [facility] Mental Status Date Assessment Result Facility 02-28-2025 Cognitive function Voice/Name;Touch/Shaki ng [facility] Work Phone: 08-08-2022 Mental Status Orientation Oriented x 4 [facility] Clinical Notes 08-08-2022 to 02-28-2025 Note Date & Type Note Facility 02-28-2025 Consult note [facility] 02-28-2025 Consult note Note Date/Time February 28, 2025 7:12am [facility] Medical Records Department [address] [place] [address] Pre-Anesthesia Evaluation 02/28/25 0711 MR#: [id number] Acct: [id number] Name: JAIRO MANCERA Rep #:[id number] : 1995 29 From: Demetri Cheng MD PCP: Dr. Lauren [place] MD Status :REG [facility] Y Race: C Location: [place] [address] ASA Classification* ASA Classification ASA Classification: 3 Assessment & Plan Anesthesia* Anesthesia Assessment Anesthesia Assessment: Discussed sedation and/or anesthesia options, risks, benefits, and alternatives with patient/parents/legal guardian/POA. Questions invited. The patient/parents/legal guardian/POA seems to understand and agrees to proceedwith anesthesia plan. Reviewed the physical assessment, medical history, allergy history and patient home medications list prior to surgery/procedure/anesthetic and documented any changes. Performed airway and anesthesia risk assessments. Anesthesia Type Anesthesia Type: MAC Anesthesia Focused Assessment* Airway Assessment Mouth opens: >3 cm Mallampati Score: II Focused Labs Anesthesia Preop lab: CBC WBC 11.9 K/mm3 (4.4-11.0) H 01/15/25 15:26 5 RBC 4.42 M/mm3 (4.2-5.4) 01/15/25 15:26 01/15/25 Hgb 12.8 g/dL (12.0-15.0) 01/15/25 15:26 01/15/25 Hct 39.0 % (37-47) 01/15/25 15:26 01/15/25 Plt Count 263 K/mm3 (150-450) 01/15/25 15:26 01/15/25 CHEMISTRY Potassium 4.2 mmol/L (3.3-5.1) 01/15/25 17:02 01/15/25 Sodium 137 mmol/L (133-145) 01/15/25 17:02 01/15/25 Magnesium 2.3 mg/dL (1.6-2.6) 07/17/24 16:56 07/17/24 BUN 11 mg/dL (4-19) 01/15/25 17:02 01/15/25 Creatinine 0.6 mg/dL (0.6-1.0) 01/15/25 17:02 01/15/25 Glucose 98 mg/dL (70-99) 01/15/25 17:02 01/15/25 TSH 3.780 uIU/mL (0.358-3.740) H 07/17/24 16:56 COAG HCG, Quant 106 mIU/mL (<9 non-preg) H 01/15/25 18:00 12/22 05/14 Urine Test Negative Negative 02/28/25 06:55 02/28/25 Pre-Assessment Diagnosis/Proposed Procedure Planned Operative Procedure(s): (B) Bilateral Endoscopic Carpal Tunnel Release Anesthesia History 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 When Was Last Pacemaker Check QUESTION #4 FULL TEXT: You/Your Family Experience fever (hyperthermia) with Anesthesia Last Oral Intake Last Oral intake: Last Oral Intake NPO since Meds taken in AM with sips of water? 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 Female Yes 02/19/25 10:54 HX of Motion Sickness Yes 02/19/25 10:54 HX of N/V After Surgery No 02/19/25 10:54 Non-Smoker No 02/19/25 10:54 Duration of Surgery greater Yes 02/19/25 10:54 than 60 minutes Number of Risk Factors 3 02/19/25 10:54 PONV Score Moderate Risk 02/19/25 10:54 Height & Weight Height & Weight: Anesthesia: Height & Weight Height 5 ft 7 in 02/27/25 09:45 Weight: 147.418 kg 02/27/25 09:45 Respiratory Assessment Respiratory Assessment - professor of physics: Respiratory Tract Infection Hx - 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 Has anyone observed you stop No 02/19/25 10:54 breathing during sleep? STOP Results Negative 02/19/25 10:54 QUESTION #5 FULL TEXT : Do you snore loudly (louder than talking or can be heard through closed doors)? 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 Specify any problems Hx of Preganancy in last 3 Yes 02/19/25 10:54 Months Nurse Filling Out Transfusion NBUCHER 02/19/25 10:54 & Questions: Date: 02/19/25 02/19/25 10:54 Time: 10:54 02/19/25 10:54 Patient unable to answer at this time (ie. 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 Hx Now No 01/01/25 10:27 Gestational Age (in weeks): EDC: Hx Hx Para Hx Section SAB No 02/19/25 10:54 Active Medications Active Medications: Current Medications Generic Name Dose Route Start Last Admin Trade Name Freq PRN Reason Stop Dose Admin Cefazolin Sodium 3 gm/ N/A 30 mls @ 600 mls/hr 02/28/25 08:15 IV 02/28/25 08:17 X1 ONE [facility] Medical History Wears glasses Fatty liver Excessive bleeding History of IBS Gastric reflux Shortness of breath on exertion History of Holter monitoring Bilateral carpal tunnel syndrome Alcohol abuse Anxiety Depression GERD (gastroesophageal reflux disease) Smoker Asthma Irregular heart beat Migraines Home Medications ?Medication ?Instructions ?Recorded ?Last Taken ?Type fluoxetine 20 mg capsule 20 mg PO BID Check with prim shyanne 05/30/21 05/28/21 History doctor omeprazole 40 mg capsule,delayed 40 mg PO DAILY 05/29/21 History release albuterol sulfate 90 mcg/actuation 2 - 4 puff inhalati on Q4H PRN 05/31/21 Unknown Rx aerosol inhaler shortness of breath or wheez ing #8.5 grams hydroxyzine HCl 50 mg tablet 50 mg PO TID PRN anxiety 09/19/24 Unknown History Allergy/AdvReac Type Severity Reaction Status Date / Time escitalopram (From Lexapro) AdvReac unknown Verified 02/19/25 10:52 Family History Mother CVA (cerebral vascular accident) Liver disease Myocardial infarction x5 Diabetes Retinal detachment Hypertrophic cardiomyopathy Grandmother Breast cancer and great-grandmother Father Liver disease Diabetes Other Heart disease Surgical History S/P D&C (status post dilation and curettage) Social History adopted: No household members: spouse housing: apartment current occupational status: employed current occupation: [employer] current occupational exposures/hazards: No pets and animals: No history of recent travel: No sexually active: Yes Smoking Status: Current every day smoker tobacco type: cigarettes Tobacco: How many years used: 8 alcohol intake: never substance use type: former substance user and marijuana well-balanced diet: about half the time caffeine: Yes Type: carbonated beverages and coffee eating out: 1-3 times/week during the past year weight has: remained stable what type of physical activity do you participate in: walking and bicycling frequency: 1-2 times per week duration: 30-45 minutes/day mireya/baptism: Confucianist seatbelt use: sometimes do you feel safe at home: Yes 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 02/28/25711 <Electronically signed by Demetri Cheng MD > Date _ Demetri Cheng MD Cosign Signature: Date CC: ~ Signed [facility] Work Phone: 1(518) 788-726904-11-2025 Discharge summary [facility] Medical Records Department [address] [place] [address] Instructions for Home/Discharge Instructions 02/28/25906 MR#: [id number] Acct: [id number] Name: JAIRO MANCERA HU Rep #:[id number] : 1995 29 From: Jose Redding MD PCP: Dr. Lauren [place] MD Status :REG [facility] Discharge Instructions Diet Discharge Diet: No restrictions Activity Discharge Activity: May Shower Ice area for (Minutes): 10 Lifting Restrictions: Gentle ROM fingers and elbow no heavy lifting or repetitive wrist ROM. Keep extremity elevated above heart level: Operative Extremity Dressing / Incision Call your doctor if your incision/area has: Continuous Slow Oozing, Sudden Increased Bleeding, Increased Pain/ Swelling, Increased Redness, Foul Smelling Discharge and Swelling at the incision site Call your doctor if you observe: Fever of 101 or Higher, Coldness, Increased Pain and Numbness or Tingling Change Dressing in: 1 day Cleanse incision/area with: Do not get Incision Wet Follow Up Care Please Follow Up With: Jose Redding MD When: within 2 weeks Test Results: Test results from this visit will be discussed in further detail at your follow- up appointment, if applicable. Discharge Plan Admission Attending Provider: Jose Redding Primary Care Provider: Lauren Jakcson Instructions Patient Instructions: Carpal Tunnel Release Surgery Print Language: German Discharge Orders/Prescriptions Prescriptions: No Action hydroxyzine HCl 50 mg tablet 50 mg PO TID PRN (Reason: anxiety) fluoxetine 20 mg Capsule 20 mg PO BID omeprazole 40 mg Capsule,Delayed Release(Dr/Ec) 40 mg PO DAILY albuterol sulfate 90 mcg/actuation HFA aerosol inhaler 2 - 4 puff inhalation Q4H PRN (Reason: shortness of breath or wheezing) Qty: 8.5 0RF Referrals / Follow Up: Lauren [place] MD [Primary Care Provider] - Jose Redding MD [Med Staff - Active Staff] - Disposition Disposition (needs filled in before D/C Order can be placed): Home, Self Care 02/28/25 0908Jose Redding MD CC: Dr. Lauren [place] MD ~ Signed [facility]04-11-2025 Procedure note [facility] Medical Records Department [address] [place] [address] Operative Report 02/28/25 09 MR#: [id number] Acct: [id number] Name: JAIRO MANCERA Rep #:[id number] : 1995 29 From: Jose Redding MD PCP: Dr. 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 Placed upon on the table. 3g ivancef before the start of the case. Local/MAC induced by the anesthetic team. Patient placed supine on the table all bonyprominences padded. SCDs on the legs. Hand table used both sides. Tourniquet applied properly padded to both upper extremity. Upper extremity prepped and draped in the usual sterile fashion with chlorhexidine-based prep solution allowing over 3 minutes drying time prior to draping. Preoperative timeout performed to confirm the site patient and the surgery. Did the same procedure on both sides. Began by elevating the limb and inflated the tourniquet to 250 mmHg. I used the Arthex center line endoscopic carpal tunnel technique. I made a transverse 2 cm incision in line with the transverse wrist crease.? This was in line with the fourth digit.? I carried the dissection down through skin andsubcutaneous tissue achieved meticulous hemostasis. Just ulnar to palmaris tendon.? I incisedthe ant ebrachial fascia.? I passed sequential dilators into the carpal tunnel along the radial border of the Guyon's canal aiming for the fourth digit with the hand in extension.? I used a synovial elevatorto identify the transverse fibers of the transverse carpal tunnel ligament.? Passed the scope into the carpal tunnel. Once I had identified the full proximal and distal extent of the ligament I fullyreleased the ligament under direct visualization by deploying the blade and slowly withdrawing the scope made sequential passes until I no longer felt tension as well as the entire extent of the ligament was released under direct visualization.? Sounded the tunnel with oakes tenotomy scissors, complete release, no bands. Arthroscope light was more visible throughthe skin. Release the forearm fascia also. Pictures taken and saved. Wounds thoroughly irrigated.? 3cc 0.25% bupivicaine for localanesthesia (6 total). Tourniquet let down prior to end of the case and meticulous hemostasis achieved.? Thorough irrigation.? ? Incisions closed with 3-0 vicryl and dermabond for skin. ?Then adaptic 4x4 gauze and bridgette wrap loosely wrapped. Patient woken up,? transferred off the operating room table and taken to postanesthetic care unit in stable condition. All sponge needle instrument counts were correct no complications.?Plan for the patient to be discharged homeaccording to day surgery criteria when they are comfortable. Follow-up in the office in 2 days time. Gentle ROM fingers and elbow no heavy lifting or repetitive [place]. [place] 64579 x2 Surgical Findings: as above Complications Complications: No Admit VTE Documentation VTE Present on Admission: No VTE Mechan Device Prophylaxis: SCD's VTE Pharm Prophylaxis ordered?: No Reason prophylaxis not ordered: Treatment Not Indicated 02/28/25 0907 Cosigner Signature (if applicable): CC: Dr. Lauren [place] MD; Dr. Jose Redding MD~ Signed [facility]04-11-2025 History and physical note Author Jose Redding [facility] Note Date/Time February 28, 2025 6:5 9am [facility] Medical Records Department [address] [place] [address] History & Physical Exam 02/28/25 0653 MR#: [id number] Acct: [id number] Name: JAIRO MANCERA Rep #:[id number] : 1995 29 From: Jose Redding MD PCP: Dr. Lauren [place] MD Status :[facility] Location: [facility]02-1 HPI - General HPI Narrative JAIRO MANCERA, is a 29 F who presents for bilateral endoscopic carpal tunnel release. No changes to history and physical exam. Bilateral wrists marked. Risks alternatives benefits postoperative counseling and narcotic counseling given. The patient understands wished to proceed no further questions. MR#: [id number] Acct: [id number] Name: JAIRO MANCERA Rep #: [id number] : 1995 Provider: Dr. Jose Redding MD Age/Sex: 28/F Location: [facility] Status: Signed Intake Vital Signs 09/19/2415:27 Height 5 ft 7 in Weight: 325 lb BMI 50.8 Intake Visit Reasons: BL WRISTS Chief Complaint: EMG review Accompanied by: Self Allergies escitalopram (From Nymirum) Adverse Reaction (Verified 11/18/24 15:48) unknown Medications ?Medication ?Instructions ?Recorded ?Confirmed ?Type fluoxetine 20 mg capsule 20 mg PO BID Check with primary 05/30/21 11/18/24 History doctor omeprazole 40 mg capsule,delayed 40 mg PO BID Check with primary 05/30/21 11/18/24 History release doctor albuterol sulfate 90 mcg/actuation 2 - 4 puff inhalation Q4H PRN 05/31/21 11/18/24 Rx aerosol inhaler shortness of breath or wheezing #8.5 grams hydroxyzine HCl 50 mg tablet 50 mg PO TID PRN 09/19/24 11/18/24 History PFSH Medical History Bilateral carpal tunnel syndrome Alcohol abuse Anxiety Depression GERD (gastroesophageal reflux disease) Smoker Asthma Irregular heart beat Migraines Surgical History S/P D&C (status post dilation and curettage) Family History Mother CVA (cerebral vascular accident) Liver disease Myocardial infarction x5 Diabetes Retinal detachment Hypertrophic cardiomyopathyGrandmother Breast cancer and great-grandmother Father Liver disease DiabetesOther Heart disease Social History adopted: No household members: spouse housing: apartment current occupational status: employed current occupation: [employer] current occupational exposures/hazards: No pets and animals: No history of recent travel: No sexually active: Yes Smoking Status: Current every day smoker tobacco type: cigarettes Tobacco: How many years used: 8 alcohol intake: never substance use type: former substance user and marijuana well-balanced diet: about half the time caffeine: Yes Type: carbonated beverages and coffee eating out: 1-3 times/week during the past year weight has: remained stable what type of physical activity do you participate in: walking and bicycling frequency: 1-2 times per week duration: 30-45 minutes/day mireya/baptism: Confucianist seatbelt use: sometimes do you feel safe at home: Yes 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 Jose Redding MD 11/18/24 1052. Part of today?s visit was documented by [ ], acting as scribe. JAIRO MANCERA is a 28 year old F here today for FU bilat NCS for carpal tunnel syndrome. Both hands still going numb worse on the left side. 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 Has been tryingnight splints without improvement. Supplemental Info [facility] Pulmonary Services/Neurology [address] [place] [address] MR#: [id number] Acct: [id number] Name: JAIRO MANCERA Rep #: [id number] : 1995 28 From: Long Barahona MD Referring Dr: Jose Redding MD Status: REG CLI Location: PSN Date: 10/23/24 Sex: F C NCS and/or EMG Patient Report Ordering Doctor: Jose Redding DATE OF SERVICE: 10/23/24 Jairo presents with complaints of numbness and tingling in both hands. Symptoms are worse on the left side. Electrodiagnostic findings: Left median motor nerve demonstrates prolonged distal latency with normal amplitude and reduced conduction velocity. Right median motor nerve demonstrates normal distal latency with normal amplitude and conduction velocity. Ulnar motor response within normal limits bilaterally. Normal median and ulnar F?waves. Borderline prolonged median sensory latency atthe wrist bilaterally. Absent right median palmar response. Normal ulnar and radial sensory responses. Needle EMG testing was performed upper limbs. All muscles tested showed no evidence of denervation with normal motor units potentials Electrodiagnostic impression: This is an abnormal study 1. Electrodiagnostic findings suggestive of bilateral median mononeuropathy. This consistent with a moderate left carpal tunnel syndrome and a mild right carpal tunnel syndrome 2. No electrodiagnostic evidence is noted for cervical radiculopathy Multi Select Codes Neurology Neurology Interp Codes: 35792-30 Musc test done w/n test comp (interp) (2) and 52518-67 Nrv cndj test 11-12 studies (interp) Coding Level of Care Code Off vis,est,level 4 Diagnoses Bilateral carpal tunnel syndrome G56.03 Assessment and Plan Assessment and Plan (1) Bilateral carpal tunnel syndrome: Status: Acute Plan: 28-year-old female bilateral carpal tunnel syndrome. NCS shows findings suggestive of bilateral median mononeuropathy. This consistent with a moderate left carpal tunnel syndrome and a mild right carpal tunnel syndrome. We again discussed the pros and cons risks and benefits of different forms of treatment open versus endoscopic carpal tunnel release. Possibly quicker returnto function less pain with endoscopic but potentially higher rates of incompleterelease. The patient understands and wished to go ahead with bilateral endoscopic carpal tunnel release on the consent for surgery they understood wellincrease the risks of surgery with 1 pack-a-day smoking and I encouraged the patient to quit or cut back that can increase the risk of infection or other complications they understood no further questions. Pros and cons risks and benefits were discussed with the patient including but not limited to infection, pain, stiffness, bleeding, damage to surrounding structures, neurovascular injury, recurrence or retear, failure or wear of hardware or fixation, instability, fracture, deep vein thrombosis and pulmonary embolism, anesthetic risks, , patient dissatisfaction, need for further surgery and other risks. Patient understood and wished to proceed with surgery,and signed the informed consent documentation. Ortho Exam General General: Yes no acute distress Neurologic: Yes alert and Yes oriented x3 Psychologic: Yes reasonable and appropriate [facility] Medical History (Updated 01/15/25 @ 20:[address] Jersey Michelle, DO) Wears glasses Fatty liver Excessive bleeding History of IBS Gastric reflux Shortness of breath on exertion History of Holter monitoring Bilateral carpal tunnel syndrome Alcohol abuse Anxiety Depression GERD (gastroesophageal reflux disease) Smoker Asthma Irregular heart beat Migraines Home Medications ?Medication ?Instructions ?Recorded ?Last Taken ?Type fluoxetine 20 mg capsule 20 mg PO BID Check with prim shyanne 05/30/21 05/28/21 History doctor omeprazole 40 mg capsule,delayed 40 mg PO DAILY 05/29/21 History release albuterol sulfate 90 mcg/actuation 2 - 4 puff inhalati on Q4H PRN 05/31/21 Unknown Rx aerosol inhaler shortness of breath or wheez ing #8.5 grams hydroxyzine HCl 50 mg tablet 50 mg PO TID PRN anxiety 09/19/24 Unknown History Allergy/AdvReac Type Severity Reaction Status Date / Time escitalopram (From Lexapro) AdvReac unknown Verified 02/19/25 10:52 Family History Mother CVA (cerebral vascular accident) Liver disease Myocardial infarction x5 Diabetes Retinal detachment Hypertrophic cardiomyopathy Grandmother Breast cancer and great-grandmother Father Liver disease Diabetes Other Heart disease Surgical History S/P D&C (status post dilation and curettage) Social History adopted: No household members: spouse housing: apartment current occupational status: employed current occupation: [employer] current occupational exposures/hazards: No pets and animals: No history of recent travel: No sexually active: Yes Smoking Status: Current every day smoker tobacco type: cigarettes Tobacco: How many years used: 8 alcohol intake: never substance use type: former substance user and marijuana well-balanced diet: about half the time caffeine: Yes Type: carbonated beverages and coffee eating out: 1-3 times/week during the past year weight has: remained stable what type of physical activity do you participate in: walking and bicycling frequency: 1-2 times per week duration: 30-45 minutes/day mireya/baptism: Confucianist seatbelt use: sometimes do you feel safe at home: Yes 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 Lauren [place] MD; Dr. Jose Redding MD~ Signed [facility] Work Phone: [phone] Consult note [facility] Medical Records Department [address] [place] [address] Pre-Anesthesia Evaluation 02/28/25 0711 MR#: [id number] Acct: [id number] Name: JAIRO MANCERA Rep #:[id number] : 1995 29 From: Demetri Cheng MD PCP: Dr. Lauren [place] MD Status :REG SD Y Race: C Location: [place] [address] ASA Classification* ASA Classification ASA Classification: 3 Assessment & Plan Anesthesia* Anesthesia Assessment Anesthesia Assessment: Discussed sedation and/or anesthesia options, risks, benefits, and alternatives with patient/parents/legal guardian/POA. Questions invited. The patient/parents/legal guardian/POA seems to understand and agrees to proceedwith anesthesia plan. Reviewed the physical assessment, medical history, allergy history and patient home medications list prior to surgery/procedure/anesthetic and documented any changes. Performed airway and anesthesia risk assessments. Anesthesia Type Anesthesia Type: MAC Anesthesia Focused Assessment* Airway Assessment Mouth opens: >3 cm Mallampati Score: II Focused Labs Anesthesia Preop lab: CBC WBC 11.9 K/mm3 (4.4-11.0) H 01/15/25 15:26 5 RBC 4.42 M/mm3 (4.2-5.4) 01/15/25 15:26 01/15/25 Hgb 12.8 g/dL (12.0-15.0) 01/15/25 15:26 01/15/25 Hct 39.0 % (37-47) 01/15/25 15:26 01/15/25 Plt Count 263 K/mm3 (150-450) 01/15/25 15:01/15/25 CHEMISTRY Potassium 4.2 mmol/L (3.3-5.1) 01/15/25 17:02 01/15/25 Sodium 137 mmol/L (133-145) 01/15/25 17:02 01/15/25 Magnesium 2.3 mg/dL (1.6-2.6) 07/17/24 16:56 07/17/24 BUN 11 mg/dL (4-19) 01/15/25 17:02 01/15/25 Creatinine 0.6 mg/dL (0.6-1.0) 01/15/25 17:02 01/15/25 Glucose 98 mg/dL (70-99) 01/15/25 17:02 01/15/25 TSH 3.780 uIU/mL (0.358-3.740) H 07/17/24 16:56 COAG HCG, Quant 106 mIU/mL (<9 non-preg) H 01/15/25 18:00 12/22 05/14 Urine Test Negative Negative 02/28/25 06:55 02/28/25 Pre-Assessment Diagnosis/Proposed Procedure Planned Operative Procedure(s): (B) Bilateral Endoscopic Carpal Tunnel Release Anesthesia History 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 When Was Last Pacemaker Check QUESTION #4 FULL TEXT: You/Your Family Experience fever (hyperthermia) with Anesthesia Last Oral Intake Last Oral intake: Last Oral Intake NPO since Meds taken in AM with sips of water? 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 Female Yes 02/19/25 10:54 HX of Motion Sickness Yes 02/19/25 10:54 HX of N/V After Surgery No 02/19/25 10:54 Non-Smoker No 02/19/25 10:54 Duration of Surgery greater Yes 02/19/25 10:54 than 60 minutes Number of Risk Factors 3 02/19/25 10:54 PONV Score Moderate Risk 02/19/25 10:54 Height & Weight Height & Weight: Anesthesia: Height & Weight Height 5 ft 7 in 02/27/25 09:45 Weight: 147.418 kg 02/27/25 09:45 Respiratory Assessment Respiratory Assessment - professor of physics: Respiratory Tract Infection Hx - 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 Has anyone observed you stop No 02/19/25 10:54 breathing during sleep? STOP Results Negative 02/19/25 10:54 QUESTION #5 FULL TEXT : Do you snore loudly (louder than talking or can be heard through closeddoors)? 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 Specify any problems Hx of Preganancy in last 3 Yes 02/19/25 10:54 Months Nurse Filling Out Transfusion NBUCHER 02/19/25 10:54 & Questions: Date: 02/19/25 02/19/25 10:54 Time: 10:54 02/19/25 10:54 Patient unable to answer at this time (ie. 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 Hx Now No 01/01/25 10:27 Gestational Age (in weeks): EDC: Hx Hx Para Hx Section SAB No 02/19/25 10:54 Active Medications Active Medications: Current Medications Generic Name Dose Route Start Last Admin Trade Name Freq PRN Reason Stop Dose Admin Cefazolin Sodium 3 gm/ N/A 30 mls @ 600 mls/hr 02/28/25 08:15 IV 02/28/25 08:17 X1 ONE [facility] Medical History Wears glasses Fatty liver Excessive bleeding History of IBS Gastric reflux Shortness of breath on exertion History of Holter monitoring Bilateral carpal tunnel syndrome Alcohol abuse Anxiety Depression GERD (gastroesophageal reflux disease) Smoker Asthma Irregular heart beat Migraines Home Medications ?Medication ?Instructions ?Recorded ?Last Taken ?Type fluoxetine 20 mg capsule 20 mg PO BID Check with prim shyanne 05/30/21 05/28/21 History doctor omeprazole 40 mg capsule,delayed 40 mg PO DAILY 05/29/21 History release albuterol sulfate 90 mcg/actuation 2 - 4 puff inhalati on Q4H PRN 05/31/21 Unknown Rx aerosol inhaler shortness of breath or wheez ing #8.5 grams hydroxyzine HCl 50 mg tablet 50 mg PO TID PRN anxiety 09/19/24 Unknown History Allergy/AdvReac Type Severity Reaction Status Date / Time escitalopram (From Lexapro) AdvReac unknown Verified 02/19/25 10:52 Family History Mother CVA (cerebral vascular accident) Liver disease Myocardial infarction x5 Diabetes Retinal detachment Hypertrophic cardiomyopathy Grandmother Breast cancer and great-grandmother Father Liver disease Diabetes Other Heart disease Surgical History S/P D&C (status post dilation and curettage) Social History adopted: No household members: spouse housing: apartment current occupational status: employed current occupation: [employer] current occupational exposures/hazards: No pets and animals: No history of recent travel: No sexually active: Yes Smoking Status: Current every day smoker tobacco type: cigarettes Tobacco: How many years used: 8 alcohol intake: never substance use type: former substance user and marijuana well-balanced diet: about half the time caffeine: Yes Type: carbonated beverages and coffee eating out: 1-3 times/week during the past year weight has: remained stable what type of physical activity do you participate in: walking and bicycling frequency: 1-2 times per week duration: 30-45 minutes/day mireya/baptism: Confucianist seatbelt use: sometimes do you feel safe at home: Yes 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 02/28/25 0712 > Date _ Demetri Orozco Signature: Date CC: ~ Signed [facility]04-11-2025 History and physical note [facility] Medical Records Department [address] [place] [address] History & Physical Exam 02/28/25 0653 MR#: [id number] Acct: [id number] Name: JAIRO MANCERA HU Rep #:[id number] : 1995 29 From: Jose Redding MD PCP: Dr. Lauren [place] MD Status :[facility] Location: [place] [address] HPI - General HPI Narrative JAIRO MANCERA, is a 29 F who presents for bilateral endoscopic carpal tunnel release. No changes to history and physical exam. Bilateral wrists marked. Risks alternatives benefits postoperative counseling and narcotic counseling given. The patient understands wished to proceed no further questions. MR#: [id number] Acct: [id number] Name: JAIRO MANCERA HU Rep #: [id number] : 1995 Provider: Dr. Jose Redding MD Age/Sex: 28/F Location: [facility] Status: Signed Intake Vital Signs 09/19/2415:27 Height 5 ft 7 in Weight: 325 lb BMI 50.8 Intake Visit Reasons: BL WRISTS Chief Complaint: EMG review Accompanied by: Self Allergies escitalopram (From Lexapro) Adverse Reaction (Verified 11/18/24 15:48) unknown Medications ?Medication ?Instructions ?Recorded ?Confirmed ?Type fluoxetine 20 mg capsule 20 mg PO BID Check with primary 05/30/21 11/18/24 History doctor omeprazole 40 mg capsule,delayed 40 mg PO BID Check with primary 05/30/21 11/18/24 History release doctor albuterol sulfate 90 mcg/actuation 2 - 4 puff inhalation Q4H PRN 05/31/21 11/18/24 Rx aerosol inhaler shortness of breath or wheezing #8.5 grams hydroxyzine HCl 50 mg tablet 50 mg PO TID PRN 09/19/24 11/18/24 History PFSH Medical History Bilateral carpal tunnel syndrome Alcohol abuse Anxiety Depression GERD (gastroesophageal reflux disease) Smoker Asthma Irregular heart beat Migraines Surgical History S/P D&C (status post dilation and curettage) Family History Mother CVA (cerebral vascular accident) Liver disease Myocardial infarction x5 Diabetes Retinal detachment Hypertrophic cardiomyopathyGrandmother Breast cancer and great-grandmother Father Liver disease DiabetesOther Heart disease Social History adopted: No household members: spouse housing: apartment current occupational status: employed current occupation: [employer] current occupational exposures/hazards: No pets and animals: No history of recent travel: No sexually active: Yes Smoking Status: Current every day smoker tobacco type: cigarettes Tobacco: How many years used: 8 alcohol intake: never substance use type: former substance user and marijuana well-balanced diet: about half the time caffeine: Yes Type: carbonated beverages and coffee eating out: 1-3 times/week during the past year weight has: remained stable what type of physical activity do you participate in: walking and bicycling frequency: 1-2 times per week duration: 30-45 minutes/day mireya/baptism: Confucianist seatbelt use: sometimes do you feel safe at home: Yes 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 Riaz MD 11/18/24 1052. Part of today?s visit was documented by [ ], acting as scribe. JAIRO MANCERA is a 28 year old F here today for FU bilat NCS for carpal tunnel syndrome. Both hands still going numb worse on the left side. 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 Has been tryingnight splints without improvement. Supplemental Info [facility] Pulmonary Services/Neurology [address] [place] [address] MR#: [id number] Acct: [id number] Name: JAIRO MANCERA HU Rep #: [id number] : 1995 28 From: Long Barahona MD Referring Dr: Jose Redding MD Status: REG CLI Location: PSN Date: 10/23/24 Sex: F C NCS and/or EMG Patient Report Ordering Doctor: Jose Redding DATE OF SERVICE: 10/23/24 Jairo presents with complaints of numbness and tingling in both hands. Symptoms are worse on the left side. Electrodiagnostic findings: Left median motor nerve demonstrates prolonged distal latency with normal amplitude and reduced conduction velocity. Right median motor nerve demonstrates normal distal latency with normal amplitude and conduction velocity. Ulnar motor response within normal limits bilaterally. Normal median and ulnar F?waves. Borderline prolonged median sensory latency atthe wrist bilaterally. Absent right median palmar response. Normal ulnar and radial sensory responses. Needle EMG testing was performed upper limbs. All muscles tested showed no evidence of denervation with normal motor units potentials Electrodiagnostic impression: This is an abnormal study 1. Electrodiagnostic findings suggestive of bilateral median mononeuropathy. This consistent with a moderate left carpal tunnel syndrome and a mild right carpal tunnel syndrome 2. No electrodiagnostic evidence is noted for cervical radiculopathy Multi Select Codes Neurology Neurology Interp Codes: 90735-66 Musc test done w/n test comp (interp) (2) and 84790-29 Nrv cndj test 11-12 studies (interp) Coding Level of Care Code Off vis,est,level 4 Diagnoses Bilateral carpal tunnel syndrome G56.03 Assessment and Plan Assessment and Plan (1) Bilateral carpal tunnel syndrome: Status: Acute Plan: 28-year-old female bilateral carpal tunnel syndrome. NCS shows findings suggestive of bilateral median mononeuropathy. This consistent with a moderate left carpal tunnel syndrome and a mild right carpal tunnel syndrome. We again discussed the pros and cons risks and benefits of different forms of treatment open versus endoscopic carpal tunnel release. Possibly quicker returnto function less pain with endoscopic but potentially higher rates of incompleterelease. The patient understands and wished to go ahead with bilateral endoscopic carpal tunnel release on the consent for surgery they understood wellincrease the risks of surgery with 1 pack-a-day smoking and I encouraged the patient to quit or cut back that can increase the risk of infection or other complications they understood no further questions. Pros and cons risks and benefits were discussed with the patient including but not limited to infection, pain, stiffness, bleeding, damage to surrounding structures, neurovascular injury, recurrence or retear, failure or wear of hardware or fixation, instability, fracture, deepvein thrombosis and pulmonary embolism, anesthetic risks, , patient dissatisfaction, need for further surgery and other risks. Patient understood and wished to proceed with surgery,and signed the informed consent documentation. Ortho Exam General General: Yes no acute distress Neurologic: Yes alert and Yes oriented x3 Psychologic: Yes reasonable and appropriate [facility] Medical History (Updated 01/15/25 @ 20:[address] Jersey Lr-Ilia, ) Wears glasses Fatty liver Excessive bleeding History of IBS Gastric reflux Shortness of breath on exertion History of Holter monitoring Bilateral carpal tunnel syndrome Alcohol abuse Anxiety Depression GERD (gastroesophageal reflux disease) Smoker Asthma Irregular heart beat Migraines Home Medications ?Medication ?Instructions ?Recorded ?Last Taken ?Type fluoxetine 20 mg capsule 20 mg PO BID Check with prim shyanne 05/30/21 05/28/21 History doctor omeprazole 40 mg capsule,delayed 40 mg PO DAILY 05/29/21 History release albuterol sulfate 90 mcg/actuation 2 - 4 puff inhalati on Q4H PRN 05/31/21 Unknown Rx aerosol inhaler shortness of breath or wheez ing #8.5 grams hydroxyzine HCl 50 mg tablet 50 mg PO TID PRN anxiety 09/19/24 Unknown History Allergy/AdvReac Type Severity Reaction Status Date / Time escitalopram (From Lexapro) AdvReac unknown Verified 02/19/25 10:52 Family History Mother CVA (cerebral vascular accident) Liver disease Myocardial infarction x5 Diabetes Retinal detachment Hypertrophic cardiomyopathy Grandmother Breast cancer and great-grandmother Father Liver disease Diabetes Other Heart disease Surgical History S/P D&C (status post dilation and curettage) Social History adopted: No household members: spouse housing: apartment current occupational status: employed current occupation: [employer] current occupational exposures/hazards: No pets and animals: No history of recent travel: No sexually active: Yes Smoking Status: Current every day smoker tobacco type: cigarettes Tobacco: How many years used: 8 alcohol intake: never substance use type: former substance user and marijuana well-balanced diet: about half the time caffeine: Yes Type: carbonated beverages and coffee eating out: 1-3 times/week during the past year weight has: remained stable what type of physical activity do you participate in: walking and bicycling frequency: 1-2 times per week duration: 30-45 minutes/day mireya/baptism: Confucianist seatbelt use: sometimes do you feel safe at home: Yes 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 Lauren [place] MD; Dr. Jose Redding MD~ Signed [facility]04-11-2025 [facility] Medical Records Department [address] [place] [address] History Physical Exam 02/28/25 0653 MR#: [id number] Acct: [id number] Name: JAIRO MANCERA HU Rep #: [id number] : 1995 29 From: Jose Redding MD PCP: Dr. Lauren [place] MD Status:[facility] Location: [address] HPI - General HPI Narrative JAIRO MANCERA, is a 29 F who presents for bilateral endoscopic carpal tunnel release. No changes to history and physical exam. Bilateral wrists marked. Risks alternatives benefits postoperative counseling and narcotic counseling given. The patient understands wished to proceed no further questions. MR#: [id number] Acct: [id number] Name: JAIRO MANCERA Rep #: [id number] : 1995 Provider: Dr. Jose Redding MD Age/Sex: 28/F Location: [facility] Status: Signed Intake Vital Signs 09/19/2415:27 Height 5 ft 7 in Weight: 325 lb BMI 50.8 Intake Visit Reasons: BL WRISTS Chief Complaint: EMG review Accompanied by: Self Allergies escitalopram (From Nymirum) Adverse Reaction (Verified 11/18/24 15:48) unknown Medications ???Medication ???Instructions ???Recorded ???Confirmed ???Type fluoxetine 20 mg capsule 20 mg PO BID Check with primary 05/30/21 11/18/24 History doctor omeprazole 40 mg capsule,delayed 40 mg PO BID Check with primary 05/30/21 11/18/24 History release doctor albuterol sulfate 90 mcg/actuation 2 - 4 puff inhalation Q4H PRN 05/31/21 11/18/24 Rx aerosol inhaler shortness of breath or wheezing #8.5 grams hydroxyzine HCl 50 mg tablet 50 mg PO TID PRN 09/19/24 11/18/24 History PFSH Medical History Bilateral carpal tunnel syndrome Alcohol abuse Anxiety Depression GERD (gastroesophageal reflux disease) Smoker Asthma Irregular heart beat Migraines Surgical History S/P D C (status post dilation and curettage) Family History Mother CVA (cerebral vascular accident) Liver disease Myocardial infarction x5 Diabetes Retinal detachment Hypertrophic cardiomyopathyGrandmother Breast cancer and great-grandmother Father Liver disease DiabetesOther Heart disease Social History adopted: No household members: spouse housing: apartment current occupational status: employed current occupation: [employer] current occupational exposures/hazards: No pets and animals: No history of recent travel: No sexually active: Yes Smoking Status: Current every day smoker tobacco type: cigarettes Tobacco: How many years used: 8 alcohol intake: never substance use type: former substance user and marijuana well-balanced diet: about half the time caffeine: Yes Type: carbonated beverages and coffee eating out: 1-3 times/week during the past year weight has: remained stable what type of physical activity do you participate in: walking and bicycling frequency: 1-2 times per week duration: 30-45 minutes/day mireya/baptism: Confucianist seatbelt use: sometimes do you feel safe at home: Yes 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 Jose Redding MD 11/18/24 1052. Part of today???s visit was documented by [ ], acting as scribe. JAIRO MANCERA is a 28 year old F here today for FU bilat NCS for carpal tunnel syndrome. Both hands still going numb worse on the left side. 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 Has been trying night splints without improvement. Supplemental Info [facility] Pulmonary Services/Neurology [address] [place] [address] MR#: [id number] Acct: [id number] Name: JAIRO MANCERA Rep #: [id number] : 1995 28 From: Long Barahona MD Referring Dr: Jose Redding MD Status: REG I Location: PSN Date: 10/23/24 Sex: F C NCS and/or EMG Patient Report Ordering Doctor: Jose Redding DATE OF SERVICE: 10/23/24 Jairo presents with complaints of numbness and tingling in both hands. Symptoms are worse on the left side. Electrodiagnostic findings: Left median motor nerve demonstrates prolonged distal latency with normal amplitude and reduced conduction velocity. Right median motor nerve demonstrates normal dista (more content not included)...[facility]01-30-2025 Consult note Author Joel López [facility] Note Date/Time February 28, 2025 9:1 8am [facility] Medical Records Department [address] [place] [address] Anesthesia Postop Eval I 02/28/25916 MR#: [id number] Acct: [id number] Name: JAIRO MANCERA Rep #:[id number] : 1995 29 From: Joel CARRASQUILLO PCP: Dr. Lauren [place] MD Status :REG SD Y Race: C Location: [place] [address] Anesthesia: Postop Eval I Current Vital Signs Temperature: 97.4 F Pulse Rate: 87 Blood Pressure: 148/65 Respiratory Rate: 16 Pulse Ox: 98 Assessment Airway patent: Yes Spontaneous unlabored respirations: Yes nausea: No Vomiting: No Anesthesia Complication: No Fluid Hydration Crystalloid volume administer (ml): 800 Total IV fluid infused: 800 Progress Note Anesthesia document: Postop Eval 1 completed: Yes 02/28/25917 <Electronically signed by Joel López CRNA> Date _ Joel López CRNA Cosigner Signature: Date CC: ~ Signed [facility] Work Phone: 1(576) 389-750712-30-2024 Evaluation note* Diagnosis Onset Date Resolution Status Admit Date Bilateral carpal tunnel syndrome acute November 18, 2 024 3:42pm [facility] Work Phone: 1(166) 199-431112-30-2024 Evaluation note* Diagnosis Onset Date Resolution Status Admit Date Bilateral carpal tunnel syndrome acute November 18, 2 024 3:42pm Bilateral carpal tunnel syndrome acute February 28, 2025 6:41am [facility] Work Phone: 1(651) 647-128412-18-2023 NotePap Smear Specimen AdequacyDecember 2022 11:59pmComment.Satisfactory for evaluation. No endocervical component is identified.An endocervical component is not commonly seen in the patient.[facility] A#[id number] Barnesville HospitalComment on above: Satisfactory for evaluation. No endocervical component is identified.An endocervical component is not commonly seen in the patient.11-06-2023 NotePap Smear Specimen AdequacyDecember 2022 11:59pmComment.Satisfactory for evaluation. No endocervical component is identified.An endocervical component is not commonly seen in the patient.[facility] A#[id number] Barnesville HospitalComment on above:Satisfactory for evaluation. No endocervical component is identified.An endocervical component is not commonly seen in the patient.11-06-2023 NotePap Smear Specimen AdequacyDecember 2022 11:59pmComment.Satisfactory for evaluation. No endocervical component is identified.An endocervical component is not commonly seen in the patient.[facility] A#[id number] Barnesville HospitalComment on above:Satisfactory for evaluation. No endocervical component is identified.An endocervical component is not commonly seen in the patient.11-06-2023 NotePap Smear Specimen AdequacyDecember 2022 11:59pm Comment.Satisfactory for evaluation. No endocervical component is identified.An endocervical component is not commonly seen in the patient.[facility] A#[id number] Barnesville HospitalComascension st[facility] on above:Satisfactory for evaluation. No endocervical component is identified.An endocervical component is not commonly seen in the patient.08-08-2022 Evaluation + Plan note Extracted from: Title:Clinical Document Author:CHAPARRO RAHMAN Date:08/08/22 BOB WHITE ADMISSION HISTORY AN D PHYSICIAL CHIEF COMPLAINT: HISTORY OF PRESENT ILLNESS: REVIEW OF SYSTEMS: ACTIVE PROBLEMS: (9) Abdominal pain (14571174) Bloody stool (2487361128) Chest pain (82696581) Diarrhea (745512530) Difficulty breathing (606505300) GERD (gastroesophageal reflux disease) (061770754) Morbid obesity with BMI of 50.0-59.9, adult (9941057896) Nausea (9124687339) Tobacco use (9222649257) MEDICATIONS: Active Inpt Meds: None Active PRN Meds: None One Time Meds: None Active IV Meds: Lactated Ringers Infusion 1,000 mL (LR 1,000 mL) Start: 08/08/22 9:49:00 EDT, Rate: 50 mL/hr, 08/08/22 9:49:00 EDT ALLERGIES: (1) Lexapro FAMILY HISTORY: SOCIAL HISTORY: PHYSICAL EXAM: VITALS: DggwgiMjvjBUCmuprPWZtN9CBV3RrvsGm(kg) 08/08 09:5736.3113/60083338JN48/16395.0 24 Hr Tmax: 36.3 at 08/08 09:57 [...] Scheduled Tests Laboratory* Urine test (LAB) 08/08/22 [facility] 09-19-2022 Hospital Discharge instructions Patient Education 08/08/2022 11:23:06 Monitored Anesthesia Care, Care After Monitored Anesthesia Care, Care After These instructions provide you with information about caring for yourself after your procedure. Your health care provider may also give you more specific instructions. Your treatment has been plannedaccording to current medical practices, but problems sometimes [...] have someone help care for you until youare awake and alert. Rest as needed. Do [...] before eating solid foods. General instructions Take zjsm-iwi-nttjrlb and prescription medicines only as told by [...] 02/26/2017 Document Revised: 02/04/2019 Document Reviewed: 02/26/2017 ETC Education Patient Education 2020 [employer] 08/08/2022 11:22:54 Irritable Bowel Syndrome, Adult Irritable [...] become more sensitive and overreact to certain things.This may be especially true when you eat [...] main symptom is abdominal pain or discomfort. Othersymptoms usually include one or more of the following: Diarrhea, constipation, or both. Abdominal swelling or bloating. Feeling full after eating a small or regular-sized meal. Frequent gas. Mucus in the stool. A feeling of having more stool left after a bowel movement. Symptoms tend to come and go. They may be triggered by stress, mental health conditions, or certainfoods. How is this diagnosed? This condition may [...] relieve symptoms. Treatment depends on the type ofIBS you have, and may include: Changes to your diet, such as: ?Avoiding foods that cause symptoms. ?Drinking more water. ?Following a low-FODMAP (fermentable oligosaccharides, disaccharides, monosaccharides, and polyols)diet for up to 6 weeks, or as [...] or counseling. Working with a diet and health and nutrition specialist (dietitian) to help create a food plan [...] worse for some people. General instructions Take ujay-cdo-objbxmr and prescription medicines and supplements only as [...] 11/06/2006 Document Revised: 10/30/2018 Document Reviewed: 10/30/2018 ETC Education Patient Education 2020 [employer] 08/08/2022 11:22:42 Colonoscopy, Adult, Care After Colonoscopy, [...] a slower pace than normal. ?Eat soft, qgag-xr-aklzls foods. Take udjy-dbu-xftxcjf or prescription medicines only as told by your health care provider. Relieving cramping and bloating Try walking around when you have cramps or feel bloated. Apply heat to your abdomen as told by your health care provider. Use a heat source that your healthcare provider recommends, such as a moist heat [...] care provider. Avoid heavy or fried foods thatare hard to digest. Avoid drinking alcohol for [...] 06/20/2005 Document Revised: 08/29/2018 Document Reviewed: 01/17/2017 ETC Education Patient Education 2020 [employer] Follow Up Care 08/02/2022 08:34:04 With:CHAPARRO RAHMAN Address: [facility] [place] [address] [address] [phone] [employer] (1) When: Unknown Comments:CALL DR. RAHMAN'S OFFICE FOR A FOLLOW-UP APPOINTMENT. [facility] 09-19-2022 Summary of episode note Discharge Instructions Thank you for allowing [facility] to assist you with your healthcare needs. The following is importantdischarge information regarding your hospital visit. Your Care Team LAUREN JACKSON MD What to do next Follow Up Appointments Follow Up with CHAPARRO RAHMAN When Why: CALL DR. RAHMAN'S OFFICE FOR A FOLLOW-UP APPOINTMENT. Where: [address] [place] [phone] [employer] (1) The Following Activity and Diet Have Been Ordered for You No qualifying data available. Allergies Lexapro Medications Please ask your primary doctor or pharmacist before taking any other medication not listed, including over the counter drugs, herbal medications, vitamins and or supplements as they may interact withyour home medications. What How Much When Instructions [...] more specific instructions. Your treatment has been plannedaccording to current medical practices, but problems sometimes [...] have someone help care for you until youare awake and alert. Rest as needed. Do [...] before eating solid foods. General instructions Take crbr-bin-ynijxxb and prescription medicines only as told by [...] 02/26/2017 Document Revised: 02/04/2019 Document Reviewed: 02/26/2017 ETC Education Patient Education 2020 [employer] Irritable Bowel Syndrome, Adult Irritable bowel syndrome [...] become more sensitive and overreact to certain things.This may be especially true when you eat [...] main symptom is abdominal pain or discomfort. Othersymptoms usually include one or more of the following: Diarrhea, constipation, or both. Abdominal swelling or bloating. Feeling full after eating a small or regular-sized meal. Frequent gas. Mucus in the stool. A feeling of having more stool left after a bowel movement. Symptoms tend to come and go. They may be triggered by stress, mental health conditions, or certainfoods. How is this diagnosed? This condition may [...] relieve symptoms. Treatment depends on the type ofIBS you have, and may include: Changes to [...] or counseling. Working with a diet and health and nutrition specialist (dietitian) to help create a food plan [...] worse for some people. General instructions Take cgdl-ije-akdyppy and prescription medicines and supplements only as [...] 11/06/2006 Document Revised: 10/30/2018 Document Reviewed: 10/30/2018 ETC Education Patient Education 2020 [employer] Colonoscopy, Adult, Care After This sheet gives [...] slower pace than normal. ? Eat soft, hbyw-mq-nkwbtf foods. Take nhoz-dai-yuawarb or prescription medicines only as told by your health care provider. Relieving cramping and bloating Try walking around when you have cramps or feel bloated. Apply heat to your abdomen as told by your health care provider. Use a heat source that your healthcare provider recommends, such as a moist heat [...] care provider. Avoid heavy or fried foods thatare hard to digest. Avoid drinking alcohol for [...] 06/20/2005 Document Revised: 08/29/2018 Document Reviewed: 01/17/2017 ETC Education Patient Education 2020 [employer] Additional Information VACCINATE! IT SAVES LIVES! Members of the community who have not yet received the COVID-19 vaccine and would like to receive it can visit one of [facility] vaccine clinics. There are many vaccine clinic locations within the [facility]. For locations and available times, please visit [email or web address] It is important to note that some COVID mobile vaccine clinics are held outdoors and may be canceled in rainy or stormy conditions. To learn more about pediatric vaccinations (ages 5-11), we invite you to visit the [facility] webpage. [email or web address]-[email or web address]-[email or web address] [email or web address] learn more about the COVID-19 vaccine, we invite you to visit the [facility] website for a list of frequently asked questions. [email or web address]-Pxwvhaenzx _[email or web address].pdf [facility] Patient Portal Access Instructions: Stay connected with your healthcare team and access your personal medical information anytime with the [facility] Patient Portal.If you would like a full copy of your medical records, please contact the [facility] Medical Records Department, Monday through Monday between 8a.m. and 4:30p.m. Please follow the directions below to access the portal: 1.Access the email account you provided upon registration to the [facility] [address].2.Look for an invitation email from [facility].3.Open the email and access the invitation link: Accept Invitation to [facility]4.Fill in the required alatorre to create your account. Sign into [email or web address] Ex[employer] Platform with your username and password that you [...] you will allow to register on the [facility] Patient Portal for access to your information. You can also access the [facility] Patient Portal on the [employer] tien. Simply click on Health Records under HealthData and then click on the [employer] logo. HOW TO SAFELY DISPOSE OF PRESCRIPTION MEDICATIONS Please use one of the following methods to safely dispose of your unused medications. 1.Use a drug disposal kit: the drug disposal pouch allows you to safely discard your old and unuseddrugs. Ask your nurse to give you one when you are discharged.2.Visit a local take-back location: Many local pharmacies and police departments have programs that collect old and unwanted prescriptiondrugs. Call your local pharmacy or go to http://bit.[employer]/5T0Sa2l to find one close to you.3.Make use of household items: Use cat litter or old coffee grounds to dispose medications if other options arenot available. Mix your drugs with these household products, seal them in an airtight container andthrow it into the garbage. Call [facility]: [phone] to be sure your drugs can be [...] aware that I should contact my doctor. 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 Mental status: at preoperative baseline. Respiratory function: lungs are clear to auscultation. Respiratory support: none. CV function: Normal rate. Cardiovascular support: none. Pain. Nausea status: denies nausea. Postoperative hydration status: within normal limits. Digitally Signed by NOEL ALICIA on 08/08/2022 11:01 AM [facility]09-19-2022 Anesthesiology Consult note Patient: JAIRO MANCERA Age: [...] been selected or recorded. Procedure history: Colonoscopy ([id number]) on 08/08/2022 at 26 Years. Social History [...] qualifying data available . Assessment and Plan [place] Society of Anesthesiologists (ASA) physical status classification: Class III. Anesthetic Preoperative Plan Premedication: None. Anesthetic technique: MAC. Induction: intravenously. Postoperative pain management: Per surgeon. Risks discussed: nausea, vomiting, headache, sore throat, dental injury, hypotension, allergic reaction, serious complications. Informed consent: signed by patient. Digitally Signed by NOEL ALICIA on 08/08/2022 11:01 AM [facility]09-19-2022 Note BOB WHITE ADMISSION HISTORY AND PHYSICIAL CHIEF COMPLAINT: HISTORY OF PRESENT ILLNESS: REVIEW OF SYSTEMS: ACTIVE PROBLEMS: (9) Abdominal pain (58445130) Bloody stool (9071645605) Chest pain (38724604) Diarrhea (420508930) Difficulty breathing (352170314) GERD (gastroesophageal reflux disease) (123322340) Morbid obesity with BMI of 50.0-59.9, adult (6328100565) Nausea (3155793059) Tobacco use (3050598355) MEDICATIONS: Active Inpt Meds: None Active PRN Meds: None One Time Meds: None Active IV Meds: Lactated Ringers Infusion 1,000 mL (LR 1,000 mL) Start: 08/08/22 9:49:00 EDT, Rate: 50 mL/hr, 08/08/22 9:49:00 EDT ALLERGIES: (1) Lexapro FAMILY HISTORY: SOCIAL HISTORY: PHYSICAL EXAM: VITALS: FdxvxyKabdUBPdwdkPMEjA3YWH4ZeyrSd(kg) 08/08 09:5736.3113/16555517KY93/77540.0 24 Hr Tmax: 36.3 at 08/08 09:57 [...] H&P unless noted below. Digitally Signed by CHAPARRO RAHMAN MD on 08/08/2022 10:42 AM [facility] summary Author Jose Redding [facility] Note Date/Time February 28, 2025 9:0 8am [facility] Medical Records Department [address] [place] [address] Instructions for Home/Discharge Instructions 02/28/25 0907 MR#: [id number] Acct: [id number] Name: JAIRO MANCERA Rep #:[id number] : 1995 29 From: Jose Redding MD PCP: Dr. Lauren [place] MD Status :REG [facility] Discharge Instructions Diet Discharge Diet: No restrictions Activity Discharge Activity: May Shower Ice area for (Minutes): 10 Lifting Restrictions: Gentle ROM fingers and elbow no heavy lifting or repetitive wrist ROM. Keep extremity elevated above heart level: Operative Extremity Dressing / Incision Call your doctor if your incision/area has: Continuous Slow Oozing, Sudden Increased Bleeding, Increased Pain/ Swelling, Increased Redness, Foul Smelling Discharge and Swelling at the incision site Call your doctor if you observe: Fever of 101 or Higher, Coldness, Increased Pain and Numbness or Tingling Change Dressing in: 1 day Cleanse incision/area with: Do not get Incision Wet Follow Up Care Please Follow Up With: Jose Redding MD When: within 2 weeks Test Results: Test results from this visit will be discussed in further detail at your follow- up appointment, if applicable. Discharge Plan Admission Attending Provider: Jose Redding Primary Care Provider: Lauren [place] Instructions Patient Instructions: Carpal Tunnel Release Surgery Print Language: German Discharge Orders/Prescriptions Prescriptions: No Action hydroxyzine HCl 50 mg tablet 50 mg PO TID PRN (Reason: anxiety) fluoxetine 20 mg Capsule 20 mg PO BID omeprazole 40 mg Capsule,Delayed Release(Dr/Ec) 40 mg PO DAILY albuterol sulfate 90 mcg/actuation HFA aerosol inhaler 2 - 4 puff inhalation Q4H PRN (Reason: shortness of breath or wheezing) Qty: 8.5 0RF Referrals / Follow Up: Lauren [place] MD [Primary Care Provider] - Jose Redding MD [Med Staff - Active Staff] - Disposition Disposition (needs filled in before D/C Order can be placed): Home, Self Care 02/28/25 0908<Electronically signed by Jose Redding MD>Jose Redding MD CC: Dr. Lauren [place] MD ~ Signed [facility] Work Phone: Evaluation + Plan note Future Appointments Appointment Date:08/08/2023 11:00:00 AM Scheduled Provider: Location:[facility] Appointment Type:US OB < 14 weeks Appointment Date:08/08/2023 01:00:00 PM Scheduled Provider:MAX POP MD Location: [facility] Appointment Type: OV OB Routine Follow Up Future Scheduled Tests Laboratory* Antibody Screen Gel 07/26/23 * ABO/Rh Gel 07/26/23 * HIV 1/2 Ab 07/26/23 * Urine test (LAB) 08/08/22 Radiology* US OB Limited/Transvaginal 07/26/23 * US OB < 14 weeks 08/08/23 [facility] Evaluation note* Diagnosis Onset Date Resolution Status Dyspnea acute Hypersomnia acute Obesity acute [facility] Work Phone: Evaluation noteNo assessment information available [facility] Work Phone: Evaluation note* Diagnosis Onset Date Resolution Status Incomplete acute [facility] Work Phone: Evaluation note* Diagnosis Onset Date Resolution Status Incomplete acute Dyspnea acute Hypersomnia acute Incomplete acute Obesity acute Obesity affecting acute acute Supervision of high-risk acute Unsure of LMP (last menstrua l period) as reason for ultrasound scan acute [facility] Work Phone: Evaluation note* Diagnosis Onset Date Resolution Status Incomplete resolved Obesity acute Dyspnea resolved Hypersomnia resolved Incomplete resolved Obesity affecting resolved resolved Supervision of high-risk resolved Unsure of LMP (last menstrua l period) as reason for ultrasound scan resolved Complete miscarriage acute History of recurrent miscarriages acute Obesity acute [facility] Work Phone: Hospital course Narrative No data available for this section [facility] Hospital Discharge instructions No data available for this section [facility] Hospital Discharge instructions Additional Instructions Follow-up with your INDUSTRY CONSULTANT. Call tomorrow to make an appointment to be seen in the office next week. Drink plenty of fluids. Rest with legs elevated to minimize bleeding. Take Keflex for your urinary tract infection. Return back to the ED if symptoms change or worsen. [facility] Work Phone: Progress note No data available for this section [facility] Reason for referral (narrative)No reason for referral information [facility] Work Phone: Chief Complaint and Reason for Visit Chief Complaint Asthma dyspnea dyspnea Reason for Visit Dyspnea Hypersomnia Obesity Chief Complaint dyspnea dyspnea SEE ORDER Chief Complaint EORDER Chief Complaint EORDER VIABILITY Chief Complaint EORDER VIABILITY miscarriage? Chief Complaint EORDER VIABILITY miscarriage? Reason for Visit Incomplete Chief Complaint EORDER VIABILITY miscarriage? Amb Documentation Amb Documentation NOB LMP 09/15 LMP UNSURE Reason for Visit Incomplete Dyspnea Hypersomnia Incomplete Obesity Obesity affecting Supervision of high-risk Unsure of LMP (last menstrual period) as reason for ultrasound scan Chief Complaint EORDER VIABILITY miscarriage? Amb Documentation Amb Documentation NOB LMP 09/15 LMP UNSURE MISCARRIAGE Reason for Visit Incomplete Dyspnea Hypersomnia Incomplete Obesity Obesity affecting Supervision of high-risk Unsure of LMP (last menstrual period) as reason for ultrasound scan Chief Complaint EORDER VIABILITY miscarriage? Amb Documentation Amb Documentation NOB LMP 09/15 LMP UNSURE MISCARRIAGE miscarriage FU Reason for Visit Incomplete Obesity Dyspnea Hypersomnia Incomplete Obesity affecting Supervision of high-risk Unsure of LMP (last menstrual period) as reason for ultrasound scan Complete miscarriage History of recurrent miscarriages Obesity Chief Complaint Admit Date BILAT UPPER EXT CTS October 23, 2024 1 :36pm BILAT UPPER EXT CTS October 23, 2024 2 :54pm BL WRISTS November 18, 2024 3:42pm vaginal bleeding January 15, 2025 2:56pm Reason for Visit Admit Date Bilateral carpal tunnel syndrome Decembe r 2023 3:42pm Chief Complaint Admit Date BL WRISTS November 18, 2024 3:42pm vaginal bleeding January 15, 2025 2:56pm Endoscopic Carpal Tunnel Release, Bilate ral February 28, 2025 6:41am Endoscopic Carpal Tunnel Release, Bilate ral February 28, 2025 6:53am Reason for Visit Admit Date Bilateral carpal tunnel syndrome Decembe r 2023 3:42pm Bilateral carpal tunnel syndrome February 182024 6:41am Family History No Family History Records Found Relationship Condition Age at Onset Recorded Date/T david Not Specified Diabetes mellitus Unknown Cardiac disease Unknown Cerebrovascular accident (CVA) Unknown Relationship Condition Age at Onset Recorded Date/T david Not Specified Cardiac disease Unknown mother Cerebrovascular accident (CVA) Unknown Disorder of liver Unknown Myocardial infarction Unknown Diabetes mellitus Unknown Retinal detachment Unknown Hypertrophic cardiomyopathy Unknown grandmother Malignant neoplasm of breast Unknown father Disorder of liver Unknown Advance Directives No Advanced Directives Records Found Advance Directive Response Recorded Date/ Time Living Will No May 30, 2021 8:19am Power of Lay Out Inspector No May 30 8:19am Advance Directive Response Recorded Date/ Time Living Will No May 30, 2021 7:19am Power of Lay Out Inspector No May 30 7:19am Advance Directive Response Recorded Date/ Time Living Will No November 16 023 10:15am Power of Lay Out Inspector No November 16, 2023 10:15am Advance Directive Response Recorded Date/ Time Living Will No September 16 12:43pm Power of Lay Out Inspector No September 16, 2024 12:43pm Living Will No January 15 025 4:49pm Power of Lay Out Inspector No January 15, 2025 4:49pm Advance Directive Response Recorded Date/ Time Living Will No February 19, 2025 10:54am Do you have a Healthcare Power of Lay Out Inspector? No February 19, 2025 10:54am Living Will No January 15 025 5:49pm Do you have a Healthcare Power of Lay Out Inspector? No January 15, 2025 5:49pm Summary Purpose Additional Source Comments Goals (unrecognized section and content) Goals may be documented in a n alternate sectionGoals may be documented in an alternate section No data available for this section No data available for this sectionGoals may be documented in an alternate sectionGoals may be documented in an alternate sectionGoals may be documented in an alternate sectionGoals may be documented in an alternate sectionGoals may be documented in an alternate sectionGoals may be documented in an alternate sectionGoals may be documented in an alternate sectionGoals may be documented in an alternate sectionGoals may be documented in an alternate sectionGoals may be documented in an alternate section Care Team (unrecognized sect ion and content) Care Team Personnel Name: LAUREN JACKSON MD Member Role: Primary Care Physician Address: Address: [address] [place] [id number]- Care Team Related Persons Name: JOANN MANCERA Address: [address] [address] INFORMATION SOURCE (unrecogn ized section and content) DATE CREATED AUTHOR 09/15/[address] [facility] ([place]) DATE CREATED AUTHOR AUTHOR'S ORGANIZ ATION 04/17/2025 [facility] Patient Care team informatio n (unrecognized section and content) Team Status: Active Member Role Status Dates Dr. Juan Francisco Jackson MD Family Provider Active Dr. Juan Francisco Jackson MD Primary Care Provider Activ e Team Status: Inactive Member Role Status Dates Dr. Juan Francisco Jackson MD Primary Care Provider Activ e Morena Oreilly CARTOGRAPHY PROFESSOR, CARTOGRAPHY PROFESSOR-C Attending Provider, Referring Provider Active Team Status: Active Member Role Status Dates Dr. Juan Francisco Jackson MD Primary Care Provider Activ e Morena Oreilly CARTOGRAPHY PROFESSOR, CARTOGRAPHY PROFESSOR-C Attending Provider, Referring Provider Active Team Status: Active Member Role Status Dates Dr. Juan Francisco Jackson MD Primary Care Provider, Refe rring Provider Active Dr. Pastora Fernandez DO Attending Provider Activ e Team Status: Inactive Member Role Status Dates Dr. Juan Francisco Jackson MD Primary Care Provider, Refe rring Provider Active Dr. Pastora Fernandez DO Attending Provider Activ e Team Status: Inactive Member Role Status Dates Dr. Juan Francisco Jackson MD Primary Care Provider, Refe rring Provider Active Dr. Alicia Gutierrez MD Attending Provider Active Team Status: Active Member Role Status Dates Dr. Juan Francisco Jackson MD Primary Care Provider Activ e Sadie Ravi RN Attending Provider Active Team Status: Inactive Member Role Status Dates Dr. Juan Francisco Jackson MD Primary Care Provider Activ e Dr. Alicia Gutierrez MD Attending Provider, Referr ing Provider Active Team Status: Inactive Member Role Status Dates Dr. Juan Francisco Jackson MD Primary Care Provider Activ e Dr. Alicia Gutierrez MD Attending Provider Active Team Status: Active Member Role Status Dates Dr. Juan Francisco Jackson MD Primary Care Provider Activ e Dr. Alicia Gutierrez MD Attending Provider, Referr ing Provider Active Team Status: Inactive Member Role Status Dates Dr. Juan Francisco Jackson MD Primary Care Provider Activ e Dr. Garo Zuniga DO Emergency Provider Active Team Status: Inactive Member Role Status Dates Dr. Juan Francisco Jackson MD Primary Care Provider Activ e Dr. Garo Zuniga DO Attending Provider, Emergency P yash Active Team Status: Active Member Role Status Dates Dr. Lauren Jackson MD Primary Care Provider Acti ve Team Status: Inactive Member Role Status Dates Dr. Lauren Jackson MD Primary Care Provider Acti ve Start: October 23, 2024 End: October 23, 2024 Jose Redding MD Attending Provider Active St art: October 23, 2024 End: October 23, 2024 Jose Redding MD Referring Provider Active St art: October 23, 2024 End: October 23, 2024 Team Status: Active Member Role Status Dates Dr. Lauren Jackson MD Primary Care Provider Acti ve Start: October 23, 2024 Jose Redding MD Referring Provider Active St art: October 23, 2024 Jose Redding MD Other Provider Active Start: October 23, 2024 Dr. Long Barahona MD Attending Provider Active S tart: October 23, 2024 Team Status: Inactive Member Role Status Dates Dr. Lauren Jackson MD Primary Care Provider Acti ve Start: November 18, 2024 End: November 18, 2024 Dr. Lauren Jackson MD Referring Provider Active Start: November 18, 2024 End: November 18, 2024 Jose Redding MD Attending Provider Active St art: November 18, 2024 End: November 18, 2024 Team Status: Inactive Member Role Status Dates Dr. Lauren Jackson MD Primary Care Provider Acti ve Start: January 13, 2025 End: January 13, 2025 Dr. Alicia Gutierrez MD Attending Provider Active Start: January 13, 2025 End: January 13, 2025 Dr. Alicia Gutierrez MD Referring Provider Active Start: January 13, 2025 End: January 13, 2025 Team Status: Inactive Member Role Status Dates Dr. Lauren Jackson MD Primary Care Provider Acti ve Start: January 15, 2025 End: January 15, 2025 Dr. Jersey Michelle DO Emergency Provider Activ e Start: January 15, 2025 End: January 15, 2025 Team Status: Inactive Member Role Status Dates Dr. Lauren Jackson MD Primary Care Provider Acti ve Start: January 15, 2025 End: January 15, 2025 Dr. Jersey Michelle DO Attending Provider Activ e Start: January 15, 2025 End: January 15, 2025 Dr. Jersey Michelle DO Emergency Provider Activ e Start: January 15, 2025 End: January 15, 2025 Team Status: Inactive Member Role Status Dates Dr. Lauren Jackson MD Primary Care Provider Acti ve Start: February 28, 2025 End: February 28, 2025 Jose Redding MD Attending Provider Active St art: February 28, 2025 End: February 28, 2025 Jose Redding MD Referring Provider Active St art: February 28, 2025 End: February 28, 2025 Team Status: Active Member Role Status Dates Dr. Lauren Jackson MD Primary Care Provider Acti ve Start: February 28, 2025 Jose Redding MD Attending Provider Active St art: February 28, 2025 Jose Redding MD Referring Provider Active St art: February 28, 2025 Jose Redding MD Other Provider Active Start: February 28, 2025 FOR RECORDS PERTAINING TO PATIENTS WHO ARE [...] BE BASED ON THE PRIMARY CLINICAL RECORDS. [facility] [employer] [facility] provides no warranty or guarantee of the accuracy or completeness of information in this document.
[2025-05-13 03:00] LABS: Absolute Lymphocyte Count 2.31 X10^3/uL (0.83-4.51); Absolute Neutrophil Count 9.5 X10^3/uL (2.0-7.7); Basophil# 0.06 X10^3/uL; Basophil% 0.5 % (0-1); Eosinophil# 0.27 X10^3/uL; Eosinophils% 2.1 % (0-5); Hematocrit 39.3 % (37-47); Hemoglobin 12.8 g/dL (12.0-15.0); Lymphocyte # 2.31 X10^3/ul (0.83-4.51); Lymphocyte % 18.3 % (19-41); Mean Corp Hgb Conc 32.6 g/dL (32-36); Mean Corpuscular Hgb 27.6 pg (27.0-32.0); Mean Corpuscular Volume 84.7 fL (81-99); Mean Platelet Vol. 11.9 fl (6.2-12.0); Monocyte# 0.49 X10^3/uL; Monocyte% 3.9 % (0-10); NRBC Flagged by Analyzer 0 % (0-5); Neutrophil # 9.46 X10^3/uL (2.7-7.7); Neutrophil % 74.8 % (47-70); Platelet Count 339 K/mm3 (150-450); RBC Distribution Width CV 13.9 % (11.6-14.6); RBC Distribution Width SD 42.6 fl (35.1-43.9); Red Blood Count 4.64 M/mm3 (4.2-5.4); White Blood Count 12.6 K/mm3 (4.4-11.0)
[2025-05-13 03:09] LABS: Internal QC Validated? YES +Cl - CLEAR BKGD; Pregnancy, Serum, hCG Quali. NEGATIVE Negative
[2025-05-13] MEDS: Ondansetron 4 MG/2 ML Vial IV ×2 (03:12→21:46)
[2025-05-13] MEDS: Morphine 4 MG/ML Syringe IV (03:12)
[2025-05-13 03:20] LABS: ALB/GLOB Ratio 1.3 RATIO (0.9-2.4); AST(SGOT) 22 U/L (<=31); Alanine Aminotransfer ALT/SGPT 38 U/L (<=34); Albumin, Serum 4.1 g/dL (3.5-5.0); Alkaline Phosphatase 84 U/L (35-104); Anion Gap 14 (5-15); BUN 9 mg/dL (4-19); BUN/Creat Ratio 13.4 RATIO (10-20); Calcium,Total 9.5 mg/dL (7.6-11.0); Carbon Dioxide 22.4 mmol/L (21.0-32.0); Chloride 102 mmol/L (98-108); Creatinine, Serum 0.65 mg/dL (0.70-1.20); EST Glomerular Filtration Rate 122 (>60); Estimated Creatinine Clearance 212.97 ml/min (50-250); Globulin 3.1 g/dL (2.2-4.2); Glucose 130 mg/dL (70-99); Lipase 23 U/L (13-75); Potassium 3.9 mmol/L (3.3-5.1); Protein, Total 7.2 g/dL (5.9-8.4); Sodium Level 138 mmol/L (133-145); Total Bilirubin 0.23 mg/dL (0.00-1.30)
[2025-05-13 04:08] LABS: Mucous, Urine 0 SEEN /hpf (<or=2+); Red Blood Cells-Urine 0 SEEN /hpf (0-5); White Blood Cells 0 SEEN /hpf (0-5)
[2025-05-13 04:12] LABS: Color, Urine Yellow (Yellow); Glucose, Dipstick Normal (Normal); Ketone-Dipstick Negative (Negative); Leukocyte Esterase-Dipstick Negative /ul (Negative); Nitrite-Dipstick Negative (Negative); Occult Blood-Urine Negative /ul (Negative); Protein-Dipstick 15 mg/dl (Negative); Specific Gravity, Urine 1.015 (1.002-1.030); Urine Bilirubin Dipstick Negative (Negative); Urine Clarity Cloudy (Clear); Urine Urobilinogen Normal (Normal)
--- NOTE | 2025-05-13 04:24 | US_ITS ---
PROCEDURE: ABDOMEN LIMITED 05/13/2025 REASON FOR EXAM: ABDOMEN PAIN, N/V COMPARISON: None FINDINGS: Liver: Diffusely echogenic suggesting fatty infiltration. Hepatomegaly. The liver measures 20.6 cm. Gallbladder: There is a solitary gallstone measuring 2 cm x 2.6 cm 1.6 cm in the neck of the gallbladder. Common bile duct: Normal measuring 4.6 mm . Pancreas: Visualized portions are unremarkable. The distal body and tail are obscured by bowel gas. Other: Visualized portions of the right kidney are unremarkable. No right upper quadrant ascites. US/Abdomen Limited IMPRESSION: Diffuse fatty infiltration of the liver. Hepatomegaly. Solitary gallstone measuring 2 cm x 2.6 cm 1.6 cm. The stone is in the neck of the gallbladder. Reading Location: [id number]
[2025-05-13 04:29] LABS: Amorphous Sediment 3+; Bacteria 1+ /hpf (None Seen); Squamous Epithelial Cells - UA 5-10 SEEN /hpf (5-10)
[2025-05-13] MEDS: 0.9% Normal Saline (1000mL) 1,000 ML 200 ML IV (04:59)
--- NOTE | 2025-05-13 07:38 | HP.PCM.SX_ITS ---
HPI - General HPI Narrative JAIRO MANCERA, is a 29 F who presents with right upper quadrant pain. The pain has gotten better since last night but is still present. Pain started yesterday after eating. She denies nausea or vomiting. She denies fevers or chills. [facility] Medical History Wears glasses Fatty liver Excessive bleeding History of IBS Gastric reflux Shortness of breath on exertion History of Holter monitoring Bilateral carpal tunnel syndrome Alcohol abuse Anxiety Depression GERD (gastroesophageal reflux disease) Smoker Asthma Irregular heart beat Migraines Home Medications ?Medication ?Instructions ?Recorded ?Last Taken ?Type fluoxetine 20 mg capsule 20 mg PO BID Check with prim shyanne 05/30/21 05/28/21 [address] doctor omeprazole 40 mg capsule,delayed 40 mg PO DAILY 05/29/21 History release albuterol sulfate 90 mcg/actuation 2 - 4 puff inhalati on Q4H PRN 05/31/21 Unknown Rx aerosol inhaler shortness of breath or wheez ing #8.5 grams hydroxyzine HCl 50 mg tablet 50 mg PO TID PRN anxiety 09/19/24 Unknown History Allergy/AdvReac Type Severity Reaction Status Date / Time escitalopram (From Lexapro) AdvReac unknown Verified 04/11/25 10:59 Family History Mother CVA (cerebral vascular accident) Liver disease Myocardial infarction x5 Diabetes Retinal detachment Hypertrophic cardiomyopathy Grandmother Breast cancer and great-grandmother Father Liver disease Diabetes Other Heart disease Surgical History S/P D&C (status post dilation and curettage) Social History adopted: No household members: spouse housing: apartment current occupational status: employed current occupation: [employer] current occupational exposures/hazards: No pets and animals: No history of recent travel: No sexually active: Yes Smoking Status: Current every day smoker tobacco type: cigarettes Tobacco: How many years used: 8 alcohol intake: never substance use type: former substance user and marijuana well-balanced diet: about half the time caffeine: Yes Type: carbonated beverages and coffee eating out: 1-3 times/week during the past year weight has: remained stable what type of physical activity do you participate in: walking and bicycling frequency: 1-2 times per week duration: 30-45 minutes/day mireya/faith: Protestant seatbelt use: sometimes do you feel safe at home: Yes 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 history: -[place]: [employer]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 Vital Signs Vital Signs Vital Signs: 05/13/25 01:52 05/13/25 03:52 05/13/25 05:00 Temperature 98.4 F 98.3 F Temperature Source Oral Oral Pulse Rate 63 79 78 Respiratory Rate 18 18 16 Blood Pressure 159/80 H 147/98 H 129/74 H Blood Pressure Mean 106 114 92 Pulse Ox 99 99 98 Oxygen Delivery Method Room Air Room Air Room Air 05/13/25 07:00 Temperature Temperature Source Pulse Rate 76 Respiratory Rate 16 Blood Pressure 145/89 H Blood Pressure Mean 107 Pulse Ox 97 Oxygen Delivery Method Room Air Weight Weight: 378 lb 8.539 oz Body Mass Index (BMI) 59.3 Physical Exam Const oriented x3 and no apparent distress Resp normal respiratory effort Cardio regular rate and regular rhythm GI soft to palpation Palpation: tender RUQ Extremity normal to inspection Results Lab / Micro Data 05/13/25 02:00 05/13/25 02:00 Labs: Laboratory Results - last 24 hr 05/13/25 02:00: WBC 12.6 H, RBC 4.64, Hgb 12.8, Hct 39.3, MCV 84.7, MCH 27.6, MCHC 32.6, RDW Std Deviation 42.6, RDW Coeff of Cruz 13.9, Plt Count 339, MPV 11.9, Immature Gran % (Auto) 0.400, Neut % (Auto) 74.8 H, Lymph % (Auto) 18.3 L, Sequoyah % (Auto) 3.9, Eos % (Auto) 2.1, Baso % (Auto) 0.5, Absolute Neuts (auto) 9.5 H, Absolute Lymphs (auto) 2.31, Nucleated RBC % 0, Sodium 138, Potassium 3.9, Chloride 102, Carbon Dioxide 22.4, Anion Gap 14, BUN 9, Creatinine 0.65 L, Estim Creat Clear Calc 212.97, Est GFR (MDRD) Non-Af 122, BUN/Creatinine Ratio 13.4, Glucose 130 H, Calcium 9.5, Total Bilirubin 0.23, AST 22, ALT 38 H, Alkaline Phosphatase 84, Total Protein 7.2, Albumin 4.1, Globulin 3.1, Albumin/Globulin Ratio 1.3, Lipase 23, Serum , Qual NEGATIVE 05/13/25 04:00: Urine Color Yellow, Urine Clarity Cloudy, Urine pH 7.0, Ur Specific [place] 1.015, Urine Protein 15 H, Urine Glucose (UA) Normal, Urine Ketones Negative, Urine Occult Blood Negative, Urine Nitrite Negative, Urine Bilirubin Negative, Urine Urobilinogen Normal, Ur Leukocyte Esterase Negative, Urine RBC 0 SEEN, Urine WBC 0 SEEN, Ur Squamous Epith Cells 5-10 SEEN, Amorphous Sediment 3+, Urine Bacteria 1+, Urine Mucus 0 SEEN Imaging Radiology Impression Abdomen Ultrasound 05/13/25 04:24 IMPRESSION: Diffuse fatty infiltration of the liver. Hepatomegaly. Solitary gallstone measuring 2 cm x 2.6 cm 1.6 cm. The stone is in the neck of the gallbladder. Reading Location: [id number] Assessment & Plan Assessment/Plan (1) Cholelithiasis: PLAN: The patient has elevated white count with right upper quadrant pain. The ultrasound did reveal a 2 cm stone lodged in the neck of the gallbladder. I discussed laparoscopic cholecystectomy with the patient. I discussed the procedure in detail with the patient. I discussed the risks, benefits, and alternatives of the procedure. I discussed the risks including but not limited to bleeding, infection, injury to surrounding organs such as the liver, bile duct, bowels. I did discuss the possibility of having to convert to an open procedure as well as the possibility that if any injuries occurred this may necessitate further surgery at a tertiary care center. Fab Mckay MD Pager: [facility] [address] [place] [address], [address] [place] [address] Office:
--- NOTE | 2025-05-13 09:07 | EKG12_ITS ---
Test Reason : pre op Blood Pressure : */* mmHG Vent. Rate : 64 BPM Atrial Rate : 64 BPM P-R Int : 176 ms QRS Dur : 84 ms QT Int : 414 ms P-R-T Axes : 44 43 50 degrees QTcB Int : 427 ms Normal sinus rhythm Normal ECG Confirmed by TITO VILLEGAS MD ([id number]), senior editor DORETHA ADHIKARI ([id number]) on 05/13/2025 1:55:14 PM Also confirmed by TITO VILLEGAS MD ([id number]), senior editor DORETHA ADHIKARI ([id number]) on 05/13/2025 1:56:49 PM Referred By: Confirmed By: TITO VILLEGAS MD
[2025-05-13] MEDS: Piperacil/Tazobactam 3.375 GM in 0.9% Normal Saline (50mL MB+) 50 ML IV ×2 (10:11→21:46)
[2025-05-13] MEDS: 0.9% Normal Saline (1000mL) 1,000 ML 15 ML IV (13:19)
[2025-05-13] MEDS: INDOCYANINE GREEN 3.75 MG in Syringe 1.5 ML 999 MG IV (13:19)
--- NOTE | 2025-05-13 13:50 | PRE.ANES_ITS ---
ASA Classification* ASA Classification ASA Classification: 3 Assessment & Plan Anesthesia* Anesthesia Assessment Anesthesia Assessment: Discussed sedation and/or anesthesia options, risks, benefits, and alternatives with patient/parents/legal guardian/POA. Questions invited. The patient/parents/legal guardian/POA seems to understand and agrees to proceed with anesthesia plan. Reviewed the physical assessment, medical history, allergy history and patient home medications list prior to surgery/procedure/anesthetic and documented any changes. Performed airway and anesthesia risk assessments. Anesthesia Type Anesthesia Type: General History Source History Obtained from:: Patient and Chart Anesthesia Focused Assessment* Temperature: 97.8 F Pulse Rate: 71 Blood Pressure: 148/86 Respiratory Rate: 16 Pulse Ox: 97 Oxygen Delivery Method: Room Air Airway Assessment Mouth opens: >3 cm Mallampati Score: I Teeth Condition: Intact Neck Range of motion (ROM): Full ROM Labs Anesthesia Preop lab: CBC WBC 12.6 K/mm3 (4.4-11.0) H 05/13/25 02:00 5 RBC 4.64 M/mm3 (4.2-5.4) 05/13/25 02:00 05/13/25 Hgb 12.8 g/dL (12.0-15.0) 05/13/25 02:00 05/13/25 Hct 39.3 % (37-47) 05/13/25 02:00 05/13/25 Plt Count 339 K/mm3 (150-450) 05/13/25 02:00 05/13/25 CHEMISTRY Potassium 3.9 mmol/L (3.3-5.1) 05/13/25 02:00 05/13/25 Sodium 138 mmol/L (133-145) 05/13/25 02:00 05/13/25 Magnesium 2.3 mg/dL (1.6-2.6) 07/17/24 16:56 07/17/24 BUN 9 mg/dL (4-19) 05/13/25 02:00 05/13/25 Creatinine 0.65 mg/dL (0.70-1.20) L 05/13/25 02:00 Glucose 130 mg/dL (70-99) H 05/13/25 02:00 05/13/25 TSH 3.780 uIU/mL (0.358-3.740) H 07/17/24 16:56 COAG HCG, Quant 106 mIU/mL (<9 non-preg) H 01/15/25 18:00 12/22 05/14 Urine Test Negative Negative 02/28/25 06:55 02/28/25 Pre-Assessment Diagnosis/Proposed Procedure Planned Operative Procedure(s): Laparoscopic cholecystectomy Anesthesia History Anesthesia History - estimator paperboard boxes: Anesthesia History - estimator paperboard boxes Hx Hospitalization No 02/19/25 10:54 Any Problems With Anesthesia Yes 05/13/25 08:44 Cholinesterase deficiency No 05/13/25 08:44 You/Your Family Experience No 05/13/25 08:44 fever (hyperthermia) with Relationship Recent Exposure to Contagious No 05/13/25 08:44 Disease Does patient have nerve No 05/13/25 08:44 stimulator Patient instructed to have device shut off --Does patient have Pacemaker No 05/13/25 13:11 or ICD? When Was Last Pacemaker Check QUESTION #4 FULL TEXT: You/Your Family Experience fever (hyperthermia) with Anesthesia Last Oral Intake Last Oral intake: Last Oral Intake NPO since 18:30 05/13/25 13:11 Meds taken in AM with sips of No 05/13/25 13:11 water? 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 - estimator paperboard boxes: PONV - estimator paperboard boxes Female HX of Motion Sickness HX of N/V After Surgery Non-Smoker Duration of Surgery greater than 60 minutes Number of Risk Factors PONV Score Height & Weight Height & Weight: Anesthesia: Height & Weight Height 5 ft 7 in 05/13/25 13:11 Weight: 170.64 kg 05/13/25 13:11 Body Mass Index (BMI) 58.9 05/13/25 13:11 Respiratory Assessment Respiratory Assessment - estimator paperboard boxes: Respiratory Tract Infection Hx - estimator paperboard boxes Hx Respiratory Tract Infection No 05/13/25 08:44 STOP Sleep Apnea STOP Sleep Apnea - estimator paperboard boxes: STOP Sleep Apnea - estimator paperboard boxes Hx Hypertension No 05/13/25 08:29 Hx Sleep Apnea No 05/13/25 08:29 CPAP BIPAP Do you snore loudly (louder No 05/13/25 08:29 than talking or can be heard Do you often feel tired/ No 05/13/25 08:29 fatigued/ sleepy during daytime? Has anyone observed you stop No 05/13/25 08:29 breathing during sleep? STOP Results Negative 05/13/25 08:29 QUESTION #5 FULL TEXT : Do you snore loudly (louder than talking or can be heard through closed doors)? 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 Specify any problems Hx of Preganancy in last 3 No 05/13/25 08:29 Months Nurse Filling Out Transfusion SHESS 05/13/25 08:29 & Questions: Date: 05/13/25 05/13/25 08:29 Time: 08:30 05/13/25 08:29 Patient unable to answer at this time (ie. confused, unrespo /Reproduction History /Reproductive History - estimator paperboard boxes: /Reproductive Hx- estimator paperboard boxes Hx Now No 05/13/25 08:44 Gestational Age (in weeks): EDC: Hx Hx Para Hx Section SAB No 05/13/25 08:44 Active Medications Active Medications: Current Medications Generic Name Dose Route Start Last Admin Trade Name Freq PRN Reason Stop Dose Admin Acetaminophen 650 mg 05/13/25 07:34 Acetaminophen 325 Mg Tablet PO Q4H PRN PRN Pain 1-10 or Fever Sodium Chloride 1,000 mls @ 125 mls/hr 05/13/25 07:35 IV .Q8H PATI Piperacillin Sod/Tazobactam 50 mls @ 12.5 mls/hr 05/13/25 07:40 05/13/25 10:11 Sod 3.375 gm/ Sodium Chloride IV 12.5 mls/hr Q8 PATI Administration Sodium Chloride 250 mls @ 15 mls/hr 05/13/25 08:13 IV .[id number] PRN Saline Flush Sodium Chloride 250 mls @ 15 mls/hr 05/13/25 08:13 IV .[id number] PRN Additional IVPB Infusion Sodium Chloride 1,000 mls @ 15 mls/hr 05/13/25 13:20 05/13/25 13:19 IV 15 mls/hr .Q48H PATI Administration Morphine Sulfate 2 - 4 mg 05/13/25 07:34 Morphine 2 Mg/Ml Syringe IV Q2H PRN PRN Pain Score 4-10 Ondansetron HCl 4 mg 05/13/25 07:34 Ondansetron 4 Mg/2 Ml Vial IV Q6H PRN PRN NAUSEA/VOMITING Sodium Chloride 10 - 40 ml 05/13/25 07:34 0.9% Saline Lock 10 Ml Syringe IV UD PRN SALINE FLUSH Sodium Chloride 10 - 40 ml 05/13/25 07:34 0.9% Saline Lock 10 Ml Syringe IV UD PRN SALINE FLUSH Sodium Chloride 10 - 40 ml 05/13/25 08:13 0.9% Saline Lock 10 Ml Syringe IV UD PRN SALINE FLUSH PFSH Medical History Wears glasses Fatty liver Excessive bleeding History of IBS Gastric reflux Shortness of breath on exertion History of Holter monitoring Bilateral carpal tunnel syndrome Anxiety Depression GERD (gastroesophageal reflux disease) Smoker Asthma Irregular heart beat Home Medications ?Medication ?Instructions ?Recorded ?Last Taken ?Type fluoxetine 20 mg capsule 20 mg PO BID Check with prim shyanne 05/30/21 05/28/21 History doctor omeprazole 40 mg capsule,delayed 40 mg PO DAILY 05/29/21 History release albuterol sulfate 90 mcg/actuation 2 - 4 puff inhalati on Q4H PRN 05/31/21 Unknown Rx aerosol inhaler shortness of breath or wheez ing #8.5 grams hydroxyzine HCl 50 mg tablet 50 mg PO TID PRN anxiety 09/19/24 Unknown History Allergy/AdvReac Type Severity Reaction Status Date / Time escitalopram (From [employer]) AdvReac unknown Verified 05/13/25 13:07 Family History Mother CVA (cerebral vascular accident) Liver disease Myocardial infarction x5 Diabetes Retinal detachment Hypertrophic cardiomyopathy Grandmother Breast cancer and great-grandmother Father Liver disease Diabetes Other Heart disease Surgical History (Updated 05/13/25 @ 13:[address] Gregg García MD) S/P D&C (status post dilation and curettage) Social History adopted: No household members: spouse housing: apartment current occupational status: employed current occupation: [employer] current occupational exposures/hazards: No pets and animals: No history of recent travel: No sexually active: Yes Smoking Status: Current every day smoker tobacco type: cigarettes Tobacco: How many years used: 8 alcohol intake: never substance use type: former substance user and marijuana well-balanced diet: about half the time caffeine: Yes Type: carbonated beverages and coffee eating out: 1-3 times/week during the past year weight has: remained stable what type of physical activity do you participate in: walking and bicycling frequency: 1-2 times per week duration: 30-45 minutes/day mireya/anabaptism: Adventism seatbelt use: sometimes do you feel safe at home: Yes 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 Physical Exam Resp clear to auscultation bilaterally
--- NOTE | 2025-05-13 15:00 | GALL_PTH ---
PATIENT: JAIRO MANCERA LOC: [facility] U#:[id number] AGE/SX: 29/F ROOM: [facility]320 RE05/13/[address]: Dr. Fab Mckay MD : 1995 BED: 1 DIS: 05/14/2025 SPEC #: [id number] RECD: 05/13/25 16:03 STATUS: DANA MANUEL #: [id number] MITZY: 05/13/25 15:[address]: Fab Mckay DEPT: SURGICAL PATHOLOGY RECD BY: David Donald ENTERED: 05/14/25 09:34 SP TYPE: BESSIE DOBBS DR: Dr. Wicho Jackson MD Tissues: A - Gallbladder, NOS Procedures: Surgery Specimen Level III HEADER OPERATION: Robotic cholecystectomy PRE-OP DIAGNOSIS: Cholelithiasis TISSUE SUBMITTED: A- Gallbladder MICROSCOPIC DIAGNOSIS A. Gallbladder, cholelithiasis, cholecystectomy: - Acute on chronic cholecystitis, cholelithiasis. MICROSCOPIC DESCRIPTION Slides are reviewed. GROSS DESCRIPTION A. Received in formalin labeled with the patient's name and date of . Designated as gallbladder is a 9.3 x 3.0 x 2.5 cm sadler-pink to green, edematous and intact gallbladder with attached patent cystic duct (inked black, shaved). A lymph node is not present. Opening reveals light green tenacious bile and a 2.2 cm bosselated cholelith. The mucosa is light green and trabeculated with patchy granularity and a maximum wall thickness of 0.4 cm. Cholesterolosis is not grossly present. Paper Sorter sections are submitted in 1 cassette. VT 05/14/2025 CPT:42905
[2025-05-13] MEDS: Bupivacaine Mpf 0.5% 30 ML VIAL (15:18)
--- NOTE | 2025-05-13 15:34 | OP.PCM_ITS ---
Operative Report (Standard) Operative Information Date of Procedure: 05/13/25 Pre-Operative Diagnosis: Acute cholecystitis Post-Operative Diagnosis: Acute cholecystitis Surgery/Procedure Performed: Robotic assisted laparoscopic cholecystectomy joint cutter: Yes Insurance Counselor: Elodia Zavala Tasks completed by certified surgical tech/first assistant: Opening, Closing and Retracting Type of Anesthesia: General/Regional RN Documented Start/Stop Times: Operation Date: 05/13/25 15:00 Case Time Into Pre-Op 05/13/25 12:58 Anesthesia Start 05/13/25 14:09 Into Room 05/13/25 14:09 Procedure Start 05/13/25 14:30 Procedure End 05/13/25 15:24 Anesthesia End 05/13/25 15:32 Out of Room 05/13/25 15:32 Procedure Start Time: 14:30 Procedure Stop Time: 15:24 Select all DRAINS/GRAFTS/IMPLANTS that apply: None Estimated Blood Loss: 5 Specimen collected: Yes Description of specimen(s) removed: Gallbladder Description of surgery: Patient was brought back to the operating room and general anesthesia was induced. The abdomen was prepped and draped in usual sterile fashion. A midline incision was made superior to the umbilicus and the fascia was grasped and elevated and a Veress needle was placed into the abdomen and a drop test was performed. The abdomen was then insufflated to 15 mmHg and the Veress needle was removed. A port was placed. Camera was placed into the abdomen to inspect for injuries and there were none. Next the patient was placed in reverse Trendelenburg position and 8 mm ports were placed in the right upper quadrant and 2 in the left upper quadrant. The robot was then docked. The gallbladder was retracted cephalad and the infundibulum was located and retracted laterally. Dissection was carried out in the triangle of SAUL and the cystic duct and cystic artery were identified. The cystic artery was triply clipped and then divided. The cystic duct was then triply clipped and divided. The gallbladder was then taken off the gallbladder fossa using electrocautery dissection. It was then placed into a bag and removed. Using a Balaji Lynch needle the midline fascia was closed with an 0 Vicryl suture. The robot was undocked and the ports were removed and the abdomen was allowed to desufflate. Local anesthetic was injected into all the port sites and then they were closed with interrupted 4-0 Monocryl sutures. Steri-Strips and bandages were applied. Patient was awoken and taken to PACU in stable condition and tolerated the procedure well. Surgical Findings: Inflamed gallbladder Complications Complications: No Admit VTE Documentation VTE Mechan Device Prophylaxis: SCD's
--- NOTE | 2025-05-13 15:38 | PCM.POST.ANE ---
Anesthesia: Postop Eval I Current Vital Signs Temperature: 97.8 F Pulse Rate: 79 Blood Pressure: 154/93 Respiratory Rate: 16 Pulse Ox: 95 Oxygen Delivery Method: Simple Mask Oxygen Flow Rate (L/min): 10 Assessment Airway patent: Yes Spontaneous unlabored respirations: Yes Mental status: Asleep nausea: No Vomiting: No Anesthesia Complication: No Fluid Hydration Crystalloid volume administer (ml): 1,000 Total IV fluid infused: 1,000 Progress Note Anesthesia document: Postop Eval 1 completed: Yes
[2025-05-13] MEDS: oxyCODONE 5 MG Tablet PO (18:16)
[2025-05-13] MEDS: Acetaminophen 325 MG Tablet 650 MG PO ×2 (18:17→23:20)
[2025-05-13] MEDS: Morphine 2 MG/ML Syringe IV (21:46)
[2025-05-13] MEDS: 0.9% Normal Saline (1000mL) 1,000 ML 125 ML IV (21:46)
--- NOTE | 2025-05-13 22:50 | PCM.POSTANE2 ---
Anesthesia Postop Eval I Sum Postop Eval Completion status Anesthesia document: Postop Eval 1 completed: Yes Anesthesia Postop Eval I Summary Anesthesia Postop Eval I Summary: Anesthesia Postop Eval I: Assessment Summary Airway patent Yes 05/13/25 22:50 Spontaneous unlabored Yes 05/13/25 22:50 respirations Mental status Asleep 05/13/25 22:50 nausea No 05/13/25 22:50 Vomiting No 05/13/25 22:50 Anesthesia Postop Eval I: Fluid Summary Crystalloid volume administer 1,000 05/13/25 22:50 (ml) Colloids volume administered ( ml) Blood Product volume administered (ml) Total IV fluid infused 1,000 05/13/25 22:50 Anesthesia Postop Eval I: Summary Notes Anesthesia Complication No 05/13/25 22:50 Anesthesia Complication Comment: Post-operative progress note Anesthesia: Postop Eval II Evaluation Mental status: Awake and Calm Pain Level: 1 nausea: No Vomiting: No Complications Anesthesia Complication: No
--- NOTE | 2025-05-13 22:51 | NURSING ---
pt walked the mcgraw and has voided
[2025-05-14 01:24] VITALS: BP 134/82; PULSE 76; RESP 16; TEMP 36.8; O2SAT 96
[2025-05-14] MEDS: oxyCODONE 5 MG Tablet PO ×2 (01:27→08:07)
[2025-05-14] MEDS: Famotidine 20 MG Tablet PO (02:32)
[2025-05-14 05:24] VITALS: BP 129/80; PULSE 82; RESP 16; TEMP 36.7; O2SAT 96
[2025-05-14] MEDS: Piperacil/Tazobactam 3.375 GM in 0.9% Normal Saline (50mL MB+) 50 ML IV (05:42)
--- NOTE | 2025-05-14 07:34 | PCM.DC.SUM ---
Providers Date of Admission: 05/13/25 Primary Care Physician: Dr. Wicho Jackson MD Reason For Visit: ACUTE CHOLECYSTITIS Diagnosis Discharge Diagnosis (1) Cholelithiasis: Code(s): K80.20 - Calculus of gallbladder without cholecystitis without obstruction (2) Acute calculous cholecystitis: Status: Acute Code(s): K80.00 - Calculus of gallbladder with acute cholecystitis without obstruction Medications at Discharge Home Medications fluoxetine 20 mg capsule 20 mg PO BID Check with primary doctor 05/30/21 omeprazole 40 mg capsule,delayed release 40 mg PO DAILY 05/30/21 albuterol sulfate 90 mcg/actuation aerosol inhaler 2 - 4 puff inhalation Q4H PRN shortness of breath or wheezing #8.5 grams 05/31/21 hydroxyzine HCl 50 mg tablet 50 mg PO TID PRN anxiety 09/19/24 acetaminophen 325 mg tablet 650 mg (2 x 325 mg) PO Q4H PRN PRN Pain 1-10 Or Fever #0 tabs 05/14/25 oxycodone 5 mg tablet 5 mg PO Q6H PRN PRN Pain Score 4-10 3 days #10 tabs 05/14/25 Hospital Course Summary of Care Provided Minutes Spent on Discharge: 35 Hospital Course: Patient is a 29 y/o F who presented to the ED with right upper quadrant abdominal pain x 1 day, which started after eating. Abdominal u/s was obtained demonstrating solitary gallstone within the neck of the gallbladder. Diffuse fatty liver. Patient also had an associated elevated white count with a left shift. Dr. Mckay performed a robotic-assisted laparoscopic cholecystectomy on 05/13/25. Patient tolerated the procedure well. Patient had an uneventful hospitalization. Upon discharge, patient was able to tolerate a regular diet. She denies any nausea. She notes minimal amount of incisional discomfort. Discharge instructions were reviewed with the patient. Physical Exam GI GI Narrative: Abdomen- obese, incisions c/d/i. No erythema or infection noted. Weight / BMI Weight Weight: 376 lb 3.149 oz Body Mass Index (BMI) 58.9 ABG / Lab / Microbiology Data 05/13/25 02:00 05/13/25 02:00 D/C Instructions Discharge Diet: Light diet - advance as tolerated Discharge Activity: May Not Drive (3-5 days or while taking narcotic pain medication) and May Shower (No tub bathing, hot tub or swimming for 2 weeks) Lifting Restrictions: No lifting greater than 20 pounds for 2 weeks. Call your doctor if your incision/area has: Continuous Slow Oozing, Sudden Increased Bleeding, Increased Pain/ Swelling, Increased Redness, Foul Smelling Discharge and Swelling at the incision site Call your doctor if you observe: Fever of 101 or Higher Suture Line Care: Avoid Pulling/Pushing and Avoid Pinching/Bending Remove Dressing in: 2 days (Remove plastic dressing in 2 days. Remove white tape strips (steri-strips) in 1 week) Cleanse incision/area with: Soap & Water DC O2, CPAP, BIPAP Needs Home O2 Discharge instructions: No DC home with Oxygen: No Please Follow Up With: Fab Mckay MD When: Please contact our office to schedule a 2 week follow-up appointment at [phone], option #2 Meaningful Use Info Meaningful Use Meaningful Use Diagnoses (Choose all that apply): None applicable Ischemic Stroke Statin Dosing Therapy Reference: STATIN DOSE THERAPY REFERENCE: * Patients > 75 years receive moderate or high dose statin therapy. * Patients 75 years or YOUNGER should receive HIGH intensity statin dose unless contraindicated. You will be required to document reason for non-treatment if statin daily dose does not meet guidelines. HIGH DOSE STATIN THERAPY DAILY Atorvastatin > than or = to 40 mg Rosuvastatin > than or = to 20 mg Amlodipine + Atorvastatin > than or = to 2.5/40 mg Ezetimibe + Simvastatin 10/80 mg Simvastatin 80mg Discharge Plan Admission Admit Date/Time: 05/13/25 07:35 Primary Reason for Your Visit: Acute cholecystitis Attending Provider: Fab Mckay Primary Care Provider: Wicho Jackson Instructions Additional Instructions / Restrictions: Cholecystectomy Diet ? Start light with soups and soft bland foods. You may advance diet as tolerated. Activity ? You may drive in 3-5 days but not while taking narcotic pain medication. ? I encourage walking. You may go up steps, one at a time. ? Do not swim or use hot tubs for 2 weeks. ? For comfort, you may use warm compresses or ice as needed for 15-20 minutes at a time. Lifting ? You may lift up to 20 pounds for 2 weeks. No strenuous activity for 4 weeks from surgery Dressings/Incision ? You may shower OVER your plastic dressings ? Do NOT tub bathe, hot tub or swim for 2 weeks ? Leave plastic dressings on for 2 days. ? When plastic dressings are removed, you will find steri strips. It is okay to continue showering with them in place, pat them dry. ? You may remove steri-strips after 1 week. We recommend getting them soaking wet for easier removal. Medications ? Anesthesia used during surgery and pain medications may cause constipation. I recommend initiating on the day of surgery a fiber supplement like, Metamucil, Citrucel, FiberCon, Benefiber, or a generic form of these medications. 1 heaping tablespoon in water daily. You may continue to utilize any bowel regimen or oral laxatives that you routinely take. ? As long as you are not intolerant to Tylenol, acetaminophen, ibuprofen, Motrin, Advil, Aleve, or similar medications, I would recommend transitioning to these [id number] medicines as soon as possible instead of continued use of narcotic pain medication. Follow up ? You should call [facility] soon after surgery, at [phone] option 2 to make a follow up appointment for 14 days after your surgery. Discharge Orders/Prescriptions Prescriptions: New oxycodone 5 mg Tablet 5 mg PO Q6H PRN PRN (Reason: Pain Score 4-10) 3 Days Qty: 10 0RF acetaminophen 325 mg Tablet 650 mg PO Q4H PRN PRN (Reason: Pain 1-10 Or Fever) Qty: 0 0RF Continued hydroxyzine HCl 50 mg tablet 50 mg PO TID PRN (Reason: anxiety) fluoxetine 20 mg Capsule 20 mg PO BID omeprazole 40 mg Capsule,Delayed Release(Dr/Ec) 40 mg PO DAILY albuterol sulfate 90 mcg/actuation HFA aerosol inhaler 2 - 4 puff inhalation Q4H PRN (Reason: shortness of breath or wheezing) Qty: 8.5 0RF Referrals / Follow Up: Wicho Jackson MD [Primary Care Provider] - Disposition Disposition (needs filled in before D/C Order can be placed): Home, Self Care Charges/Coding Visit Charges Inpatient E&M: 23109 Disch Hosp >30min (post-op)
[2025-05-14 07:58] VITALS: BP 130/81; PULSE 72; RESP 18; TEMP 36.6; O2SAT 96
[2025-05-14] MEDS: Acetaminophen 325 MG Tablet 650 MG PO (08:07)
--- NOTE | 2025-05-14 10:11 | PHA.DC.MC.R ---
Pharmacy [facility] Service has performed discharge medication reconciliation and counseling for this patient. Patient requested delivery. This [facility] called retail and aske for meds to beds. 1. ACETAMINOPHEN 650MG PO Q4H PRN PAIN 2. OXYCODONE 5MG PO Q6H PRN PAIN The patient's discharge medication list was reviewed for discrepancies and discrepancies were resolved. The patient was counseled on the following discharge medications and changes in medications for homegoing were reviewed. The Reason for Use, instructions for use, and potential side effects were reviewed for all new medications. The patient's questions regarding all of their medications were answered. The patient was able to verbally demonstrate an understanding of their discharge medications. Medications at Discharge Home Medications fluoxetine 20 mg capsule 20 mg PO BID Check with primary doctor 05/30/21 omeprazole 40 mg capsule,delayed release 40 mg PO DAILY 05/30/21 albuterol sulfate 90 mcg/actuation aerosol inhaler 2 - 4 puff inhalation Q4H PRN shortness of breath or wheezing #8.5 grams 05/31/21 hydroxyzine HCl 50 mg tablet 50 mg PO TID PRN anxiety 09/19/24 acetaminophen 325 mg tablet 650 mg (2 x 325 mg) PO Q4H PRN PRN Pain 1-10 Or Fever #0 tabs 05/14/25 oxycodone 5 mg tablet 5 mg PO Q6H PRN PRN Pain Score 4-10 3 days #10 tabs 05/14/25
== END 2025-05-14 10:53 | disposition home or self-care (01) ==
LOC: ED 07:59 → MS3 08:00
PROVIDERS: Admitting Provider Surgery; Emergency Provider Emergency Medicine; PCP Family Medicine; Visit Provider Surgery
PROC: 0FT44ZZ Resection of Gallbladder, Percutaneous Endoscopic Approach (ICD-10-PCS; CPT 47562; principal; 2025-05-13 14:40)
DX: K80.12 Calculus of gallbladder with acute and chronic cholecystitis without obstruction (principal); K76.0 Fatty (change of) liver, not elsewhere classified; F17.210 Nicotine dependence, cigarettes, uncomplicated; K21.9 Gastro-esophageal reflux disease without esophagitis; J45.909 Unspecified asthma, uncomplicated; Z79.899 Other long term (current) drug therapy
CPT/HCPCS: 47562; S2900; 00790; 76705; 80053; 81001; 83690; 84703; 85025; 88304; 93005; 96361; 96365; 96366; 96375; 96376; 99221; 99283; A4216; G0378; J2405

== ENCOUNTER → 2025-10-28 | Outpatient (CLI) | payer OTHER, SELFPAY ==
--- NOTE | 2025-10-28 16:07 | RAD_ITS ---
PROCEDURE: L/S SPINE W BEND MIN 6 VW 10/28/2025 REASON FOR EXAM: L LEG PAIN TECHNIQUE: Procedure Code: [id number] Modality: DX Procedure: L/S SPINE W BEND MIN 6 VW COMPARISON: None FINDINGS: The visualized sacrum appears to be intact without evidence of fracture. There are 5 lumbar-type vertebral bodies below the last set of paired ribs. The vertebral body heights are within normal limits. There is no spondylolysis. Very mild spondylosis of the lumbar spine is noted. There is 2 mm of retrolisthesis of L2 in relationship to L3 on the flexion image. There is no spondylolisthesis identified on the neutral or extension images. Intervertebral disc spaces are well-maintained. Paravertebral soft tissue structures are unremarkable. RAD/L/S Spine w Bend Min 6 Vw IMPRESSION: Very mild spondylosis of the lumbar spine is noted. There is 2 mm of retrolisthesis of L2 in relationship to L3 on the flexion imag e. Reading Location: [id number]
== END | disposition home or self-care (01) ==
LOC: MTRAD 16:07
PROVIDERS: PCP Family Medicine; Referring Provider Family Medicine; Visit Provider Family Medicine
DX: M54.40 Lumbago with sciatica, unspecified side (principal)
CPT/HCPCS: 72114